=== PATIENT | male | born 1980 | race Caucasian/White ===

== ENCOUNTER 2016-06-28 16:55 | Emergency (ER) | payer SELFPAY ==
[~2016-06-28] VITALS: Ht 177.8 cm; Wt 85.0 kg
[2016-06-28 16:55] VITALS: BP 155/94; PULSE 94; RESP 17; TEMP 97.9; O2SAT 98
[2016-06-28] MEDS ORDERED: SILV1CRE80 TOPICAL (17:19)
[2016-06-28] MEDS ORDERED: HYDR-3533 PO (17:19)
--- NOTE | 2016-06-28 17:26 | PD ---
HPI Chief Complaint: Burn Time Seen by Provider: 17:21 Travel History International Travel<30 days: No Contact w/Intl Traveler<30days: No Traveled to known affect area: No History of Present Illness HPI 36-year-old male that presents to the ED for evaluation of burn to his left forearm. Per patient he was using a sterile and he actually put his arm and there. Per patient he has significant pain from that. Per patient is happened about 45 minutes ago. He denies any allergies to medication. Per patient the pain is 8 out of 10. Gets worse with touch. Denies any other injuries. He does state that he's had third-degree avila in the past in that same arm but never seek treatment for it. Per patient he is up-to-date with his tetanus. Most of the avila are to the lateral aspect of the left forearm. PFSH Past Medical History Musculoskeletal: Yes (chronic neck and back pain) Psychiatric: Yes (PTSD) Social History Alcohol Use: Yes (pt states he "used to drink everyday, now just every so often ".) Tobacco Use: Yes (chewing tobacco) Substance Use: Yes Allergies-Medications (Allergen,Severity, Reaction): Coded Allergies: No Known Allergies (Unverified , 01/27/16) Reported Meds & Prescriptions Reported Meds & Active Scripts Active Lortab (Hydrocodone-Acetaminophen) 5-325 Mg Tab 1 Tab PO Q6H PRN Silver Sulfadiazine Topical (Silver Sulfadiazine) 1 % Cream 1 Applic TOPICAL BID 7 Days Review of Systems Except as stated in HPI: all other systems reviewed are Neg Physical Exam Narrative GENERAL: SKIN: Warm and dry. HEAD: Atraumatic. Normocephalic. EYES: Pupils equal and round. No scleral icterus. No injection or drainage. ENT: No nasal bleeding or discharge. Mucous membranes pink and moist. Tongue is midline. No uvula deviation. NECK: Trachea midline. No JVD. CARDIOVASCULAR: Regular rate and rhythm. No murmurs, S3, S4. RESPIRATORY: No accessory muscle use. Clear to auscultation. Breath sounds equal bilaterally. GASTROINTESTINAL: Abdomen soft, non-tender, nondistended. Hepatic and splenic margins not palpable. MUSCULOSKELETAL: Extremities without clubbing, cyanosis, or edema. No obvious deformities. Full range of motion of the upper and lower extremities bilaterally. Patient does have second and first-degree avila noted to the lateral aspect of the left arm. Patient's avila are about 10 cm. Patient does have 2 areas where he has second-degree avila with blistering that follow the pattern of the stove. Good capillary refill of all fingers. Full range of motion of the arm. NEUROLOGICAL: Awake and alert. No obvious cranial nerve deficits. Motor grossly within normal limits. Five out of 5 muscle strength in the arms and legs. Normal speech. PSYCHIATRIC: Appropriate mood and affect; insight and judgment normal. Data Data Last Documented VS Vital Signs Date Time Temp Pulse Resp B/P Pulse Ox O2 Delivery O2 Flow Rate FiO2 06/28/16 16:55 97.9 94 17 155/94 98 Orders Acetamin-Hydrocod 325-5 Mg ([place] 5-325 (06/28/16 17:30) Silver Sulfadia 1% Crm (50 Gm) ([place] (06/28/16 17:30) Wound Care (06/28/16 17:18) MDM Medical Decision Making Medical Screen Exam Complete: Yes Emergency Medical Condition: Yes Medical Record Reviewed: Yes Differential Diagnosis First degree versus second degree versus third degree burn Narrative Course 36-year-old male that presents to the ED for evaluation of avila to the left forearm. Patient was properly examined and was found to have signs and symptoms consistent appears to be a first and second-degree burn to the left forearm. No sign of acute medical distress. Avila do appear to be somewhat significant. I will prescribe patient a prescription for Lortab and silver sulfadiazine. Here in the ER patient will have wound care with silver sulfadiazine and given Lortab for pain. Patient was instructed to do wound care once or twice a day. Follow with PCP. See ED worsening symptoms. Patient was told to watch for signs of infection if this develops he is to come back to the ED. Diagnosis Primary Impression: First degree burn Additional Impression: Second degree burn of forearm Qualified Code: T22.212A - Second degree burn of forearm, left, initial encounter Patient Instructions: General Instructions, Narcotic given in the ED Additional Instructions: Change dressings at least once a day for at least 2 weeks. Follow up with PCP. See ED worsening symptoms. Do not drink or drive to take the Lortab. See ED for any worsening symptoms. Apply ice as needed. He can take Tylenol or Motrin for pain in addition to the pain medication given. Med/Other Pt SpecificInfo: Prescription(s) given, Wound Care Scripts Hydrocodone-Acetaminophen (Lortab)5-325 Mg Tab1 Tab PO Q6H PRN (PAIN) #20 TAB Prov:Madeline Brown MD 06/28/16 Silver Sulfadiazine Topical 1 % Cream1 Applic TOPICAL BID 7 Days Ref 0 Prov:Madeline Brown MD 06/28/16 Disposition: 01 DISCHARGE HOME Condition: Stable Cristino Davis Jun 28, 2016 17:26
[2016-06-28] MEDS ORDERED: SILVER SULFADIAZINE 1% CR 50 GM JAR TOPICAL ONE (17:30)
[2016-06-28] MEDS ORDERED: ACETAMINOPHEN/HYDROcodone 325 MG/5 MG TAB PO ONE (17:30)
== END 2016-06-28 17:47 | disposition home or self-care (01) ==
LOC: NEPD 16:55
DX: T22.212A Burn of second degree of left forearm, initial encounter (principal); G89.29 Other chronic pain; Z72.0 Tobacco use; X19.XXXA Contact with other heat and hot substances, initial encounter; Y93.G3 Activity, cooking and baking; Y92.9 Unspecified place or not applicable; Y99.8 Other external cause status
CPT/HCPCS: 16020

== ENCOUNTER 2016-07-29 12:24 | Emergency (ER) | payer OTHER ==
[~2016-07-29] VITALS: Ht 177.8 cm; Wt 84.0 kg
[~2016-07-29 12:24] MED LIST: HYDR-3533 PO; SILV1CRE80 TOPICAL
[2016-07-29 12:26] VITALS: BP 137/74; PULSE 66; RESP 18; TEMP 97.3; O2SAT 97
--- NOTE | 2016-07-29 12:31 | PD ---
Physical Exam Time Seen by Provider: 12:29 Narrative 36 y/o male here with L ear pain for 4 days. Denies fevers. +congestion. Denies cough, recent swimming, drainage from the ear. Vital signs reviewed. Seen at triage desk. Awaiting bed placement. Data Data Last Documented VS Vital Signs Date Time Temp Pulse Resp B/P Pulse Ox O2 Delivery O2 Flow Rate FiO2 07/29/16 12:26 97.3 66 18 137/74 97 Room Air [facility] Medical Record Reviewed: Yes Supervised Visit with MICHAEL: Carlos Manuel Man July 29, 2016 12:31
[2016-07-29] MEDS ORDERED: IBUP800T23 PO (12:41)
[2016-07-29] MEDS ORDERED: AUGM875T PO (12:41)
--- NOTE | 2016-07-29 12:42 | PD ---
HPI Chief Complaint: ENT Complaint Time Seen by Provider: 12:39 Travel History International Travel<30 days: No Contact w/Intl Traveler<30days: No Traveled to known affect area: No History of Present Illness HPI 36-year-old male presents to emergency department with left ear pain 4 days. Reports nasal congestion. Denies sore throat, cough. Denies swelling, drainage from the ear. Denies fever. Reports vomiting 2 days ago; denies vomiting times the last 2 days. Has been taking his mom's prescription of amoxicillin since Thursday night with no improvement in symptoms. Has also been taking ibuprofen 800 mg with some relief of pain. [facility] No known allergies. Has no other medical complaints. No other modifying factors or associated signs and symptoms. PFSH Past Medical History Musculoskeletal: Yes (chronic neck and back pain) Psychiatric: Yes (PTSD) Social History Alcohol Use: Yes (pt states he "used to drink everyday, now just every so often ".) Tobacco Use: Yes (chewing tobacco) Substance Use: Yes Allergies-Medications (Allergen,Severity, Reaction): Coded Allergies: No Known Allergies (Unverified , 07/29/16) Reported Meds & Prescriptions Reported Meds & Active Scripts Active Ibuprofen 800 Mg Tab 800 Mg PO Q6HR PRN Augmentin (Amoxicillin-Clavulanate) 875-125 mg Tab 875 Mg PO BID 10 Days not for use in CrCl <30 ml/min. Lortab (Hydrocodone-Acetaminophen) 5-325 Mg Tab 1 Tab PO Q6H PRN Silver Sulfadiazine Topical (Silver Sulfadiazine) 1 % Cream 1 Applic TOPICAL BID 7 Days Review of Systems Except as stated in HPI: all other systems reviewed are Neg Physical Exam Narrative GENERAL: Well-nourished, well-developed male patient, in no acute distress; afebrile, nontoxic-appearing SKIN: Warm and dry. No rash. HEAD: Atraumatic. Normocephalic. EYES: Pupils equal and round. No scleral icterus. No injection or drainage. EARS: Bilateral pinnae and external canals appear within normal limits. Left tympanic membranes with erythema , loss of landmark, and dullness; without perforation. ENT: Mucosa pink and moist. Pharynx with erythema; without edema or exudates. No uvular edema. No uvular, palatal, or tonsillar deviation. Airway patent. NECK: Trachea midline. No lymphadenopathy. CARDIOVASCULAR: Regular rate. RESPIRATORY: No accessory muscle use. GASTROINTESTINAL: Flat. MUSCULOSKELETAL: No obvious deformities. No clubbing. No cyanosis. No edema. NEUROLOGICAL: Awake and alert. Oriented 3. No obvious cranial nerve deficits. Motor grossly within normal limits. Normal speech. Moves all extremities. 5/5 strength to all extremities. PSYCHIATRIC: Appropriate mood and affect; insight and judgment normal. Data Data Last Documented VS Vital Signs Date Time Temp Pulse Resp B/P Pulse Ox O2 Delivery O2 Flow Rate FiO2 07/29/16 12:26 97.3 66 18 137/74 97 Room Air Orders Lidocaine 1% Inj (50 Ml) (Xylocaine 1% I (07/29/16 12:45) Ceftriaxone Inj (Rocephin Inj) (07/29/16 12:45) MDM Medical Decision Making Medical Screen Exam Complete: Yes Emergency Medical Condition: Yes Medical Record Reviewed: Yes Differential Diagnosis Otitis media, otitis externa, foreign body, cerumen impaction Narrative Course 36-year-old male physical exam consistent with left otitis media. He has been taking amoxicillin that was prescribed to his mother for the last 3 days with no improvement in symptoms. Patient is afebrile and nontoxic-appearing. Rocephin will be administered for treatment failure. Augmentin and ibuprofen prescribed for home. Patient verbalizes understanding and agreement with treatment plan. Patient is medically cleared and stable for discharge. Discussed reasons to return to the emergency department. Instructed patient to follow up with primary care provider. Patient agrees with treatment plan. The patients vital signs are stable and the patient is stable for outpatient follow- up and treatment. Patient discharged home, stable and in no acute distress. Diagnosis Primary Impression: Left otitis media Qualified Code: H66.92 - Left otitis media, unspecified chronicity, unspecified otitis media type Referrals: Primary Care Physician Patient Instructions: General Instructions, Otitis Media (ED) Departure Forms: Tests/Procedures, Work Release Enter return to work date: July 30, 2016 Additional Instructions: Take antibiotics as prescribed and complete full course Ibuprofen or Tylenol as directed and as needed to reduce pain and fever Avoid getting water in the ears Do not put anything in the ears; including Q-tips Follow-up with your primary care provider Return to the emergency department immediately with worsening of symptoms Med/Other Pt SpecificInfo: Prescription(s) given Scripts Ibuprofen 800 Mg [id number] Mg PO Q6HR PRN (PAIN) #30 TAB Ref 0 Prov:Samantha Jeong 07/29/16 Amoxicillin-Clavulanate (Augmentin)875-125 mg [id number] Mg PO BID 10 Days Ref 0 not for use in CrCl <30 ml/min. Prov:Samantha Jeong 07/29/16 Disposition: 01 DISCHARGE HOME Condition: Stable Samantha Jeong July 29, 2016 12:42
[2016-07-29] MEDS ORDERED: LIDOCAINE HCL 1% 50 ML VIAL IM ONE (12:45)
== END 2016-07-29 14:18 | disposition home or self-care (01) ==
LOC: NEPK 12:24
DX: H66.92 Otitis media, unspecified, left ear (principal); R09.81 Nasal congestion; Z72.0 Tobacco use; Z87.39 Personal history of other diseases of the musculoskeletal system and connective tissue; Z86.59 Personal history of other mental and behavioral disorders
CPT/HCPCS: 96372; 99283; J0696

== ENCOUNTER 2016-12-08 20:51 | Inpatient (IN) | payer OTHER ==
[~2016-12-08] VITALS: Ht 177.8 cm; Wt 87.5 kg
[~2016-12-08 20:51] MED LIST changes: +AUGM875T PO; +IBUP800T23 PO
[2016-12-08 20:55] VITALS: BP 121/79; PULSE 73; RESP 16; TEMP 97.8; O2SAT 98
[2016-12-08 20:59] VITALS: RESP 22; O2SAT 96
[2016-12-08] MEDS ORDERED: ceFAZolin 2 GM PREMIX 50 ML ONE (21:03)
[2016-12-08] MEDS ORDERED: SODIUM CHLOR 0.9% 1000 ML INJ 1,000 ML IV SCH (21:04)
[2016-12-08] MEDS ORDERED: DIPHTH/TETANUS/ACEL PERTUSSIS (BOOSTER) 0.5 ML VIAL/PFS IM ONE (21:15)
[2016-12-08] MEDS ORDERED: ceFAZolin 2 GM PREMIX 50 ML IV ONE (21:15)
[2016-12-08] MEDS ORDERED: MORPHINE SULFATE 4 MG/ML INJ IV ONE (21:15)
[2016-12-08] MEDS ORDERED: SODIUM CHLORIDE 0.9% FLUSH 10 ML FLUSH IVF PRN (21:15)
[2016-12-08] MEDS ORDERED: ONDANSETRON HCL 4 MG/2 ML VIAL IVP ONE (21:15)
--- NOTE | 2016-12-08 21:16 | PD ---
HPI Chief Complaint: Fall Time Seen by Provider: 21:03 Travel History International Travel<30 days: No Contact w/Intl Traveler<30days: No Traveled to known affect area: No History of Present Illness HPI The patient is a 36 year old male who presents to the [facility] emergency department with a history of reportedly helping a friend work on a roof prior to arrival. The patient reports that he slipped and fell off the roof. He estimates that he was 20-30 feet up when he fell. He tried to avoid hitting his head and mainly landed on his left side. He denies having any loss of consciousness. The patient has a laceration noted to be through and through lower lip. He denies having any neck pain, paresthesias, or weakness to his extremities. He reports that he has severe left wrist pain, right knee pain, left sided low back pain and left hip pain. The patient came in by private vehicle. The patient is unsure when his tetanus was last updated. The patient on review of systems denies having any chest pain, chest pressure, shortness of breath. He denies having any abdominal pain, vomiting, or diarrhea. [facility] Past Medical History Narrative Medical The patient's past medical history is significant for chronic low back pain previously monitored by pain management, however he reports that he has not recently been on Lortab. He is followed through the [facility] for his primary care. Diminished Hearing: No Musculoskeletal: Yes (chronic neck and back pain) Psychiatric: Yes (PTSD) Past Surgical History Narrative Surgical The patient's past surgical history is significant for knee arthroscopy. Social History Alcohol Use: Yes (OCC.) Tobacco Use: Yes (chewing tobacco) Substance Use: Yes (PT STATES HE QUIT ONE YEAR AGO) Allergies-Medications (Allergen,Severity, Reaction): Coded Allergies: No Known Allergies (Unverified , 12/08/16) Reported Meds & Prescriptions Reported Meds & Active Scripts Active No Active Prescriptions or Reported Medications Review of Systems Except as stated in HPI: all other systems reviewed are Neg General / Constitutional: No: Fever Eyes: No: Visual changes HENT: Positive: Dental Difficulties, Other (right-sided jaw pain), No: Headaches, Neck Stiffness, Neck Pain Cardiovascular: Positive: Chest Pain or Discomfort (chest wall pain) Respiratory: No: Shortness of Breath Gastrointestinal: No: Nausea, Vomiting, Diarrhea, Abdominal Pain Genitourinary: No: Dysuria Musculoskeletal: Positive: Arthralgias, Limited ROM, Pain Skin: Positive Other (laceration to the chin.), No Rash Neurologic: No: Weakness, Focal Abnormalities, Change in Mentation, Slurred Speech, Sensory Disturbance Psychiatric: No: Depression Endocrine: No: Polydipsia Hematologic/Lymphatic: No: Easy Bruising Physical Exam Narrative General: The patient is a well-developed well-nourished male, uncomfortable appearing on arrival reporting severe left wrist, left low back, and right knee pain. The patient was placed in a cervical collar. Head and Neck exam: Head is normocephalic atraumatic. No facial bone tenderness or increased facial bone mobility noted on palpation. Eyes: EOMI, pupils are equal round and reactive to light. Nose: Midline septum with pink mucous membranes Mouth: The patient reports that his upper teeth feel loose. On palpation the patient is noted to have some loosening of the left lateral incisor. Otherwise his teeth are intact. Moist mucus membranes. Posterior oropharynx is not erythematous. No tonsillar hypertrophy. Uvula midline. Airway patent. The patient is noted to have a through and through laceration through the lower lip that is approximately 4 cm. The patient has right sided mandible pain. Neck: The patient is immobilized in a cervical collar. No tracheal deviation. The trachea appears midline. Cardiovascular: Regular rate and rhythm without murmurs, gallops, or rubs. No pulse deficit to the extremities. Lungs: Clear to auscultation bilaterally. No wheezes, rhonchi, or rales. No chest wall tenderness to palpation. No erythema or ecchymosis noted. No crepitus , step off, or flail segment noted. Abdomen: Soft, without tenderness to palpation in all 4 quadrants of the abdomen. No guarding, rebound, or rigidity. No tenderness on palpation of McBurney's point. Normal bowel sounds are audible. Extremities: No clubbing, cyanosis, or edema. 2+ pulses in all 4 extremities. No extremity tenderness or deformity noted on palpation or passive/ active range of motion, except in the area of interest, the left wrist the patient is noted to have deformity of the distal wrist. The patient continues to have 2+ radial pulse, less than 3 second capillary refill of his digits, intact sensation over all digits. The patient on examination of the right knee the other area of interest the patient reports having heel joint line tenderness on palpation. There is no step-off or crepitus. There is some erythema noted. There appears to be bruising developing. There is no effusion. No tenderness on palpation of his patella. No ligament laxity. There is no shortening of his lower extremities, however the patient has pain with internal and neck rotation of the left hip. The patient has intact sensation over all toes and full range of motion of his legs. Back: No spinous process tenderness to palpation. No costovertebral angle tenderness to palpation. No erythema or ecchymosis. The patient reports tenderness on palpation along the lower aspect of the left SI joint. There is no crepitus on palpation. Neurologic Exam: Cranial nerves 2-12 were intact on exam. Strength is 5/5 in all 4 extremities. No sensory deficits noted. Skin Exam: No rash noted. Data Data Last Documented VS Vital Signs Date Time Temp Pulse Resp B/P (MAP) Pulse Ox O2 Delivery O2 Flow Rate FiO2 12/08/16 20:59 96 Nasal Cannula 2.00 12/08/16 20:59 22 12/08/16 20:55 97.8 73 121/79 (93) Orders Orders Cefazolin 2 Gm Premix (Ancef 2 Gm Premix (12/08/16 21:03) I-Stat Profile (12/08/16 21:04) I-Stat Creatinine (12/08/16 21:04) Complete Blood Count With Diff (12/08/16 21:04) Prothrombin Time / Inr (Pt) (12/08/16 21:04) Act Partial Throm Time (Ptt) (12/08/16 21:04) Type And Screen (12/08/16 21:04) Fibrinogen (12/08/16 21:04) Alcohol (Ethanol) (12/08/16 21:04) Red Blood Cells (Rbc) (12/08/16 21:04) Urinalysis - C+S If Indicated (12/08/16 21:04) Drug Screen, Random Urine (12/08/16 21:04) Chest, Single Ap (12/08/16 21:04) Ct Brain W/O Iv Contrast(Rout) (12/08/16 21:04) Ct Cerv Spine W/O Contrast (12/08/16 21:04) Ct Abd/Pel W Iv Contrast(Rout) (12/08/16 21:04) Ct Thorax/ Chest W Iv Contrast (12/08/16 21:04) Ct Lumb Spine W/O Contrast (12/08/16 21:04) Ct Facial Bones W/O Iv Cont (12/08/16 21:04) Apply Cervical Collar (12/08/16 21:04) Iv Access Insert/Monitor (12/08/16 21:04) Ecg Monitoring (12/08/16 21:04) Oximetry (12/08/16 21:04) Oxygen Administration (12/08/16 21:04) Cefazolin 2 Gm Premix (Ancef 2 Gm Premix (12/08/16 21:15) Morphine Inj (Morphine Inj) (12/08/16 21:15) Ondansetron Inj (Zofran Inj) (12/08/16 21:15) Xuxb-Mus-Rumzgn (Booster) Inj (Boostrix (12/08/16 21:15) Sodium Chlor 0.9% 1000 Ml Inj (Ns 1000 M (12/08/16 21:04) Sodium Chloride 0.9% Flush (Ns Flush) (12/08/16 21:15) Hip, Uni(Ap&Lat) W Ap Pelvis (12/08/16 21:04) Ice/Cold Pack (12/08/16 21:04) Knee, Complete (4vws) (12/08/16 21:04) Lidocaine 1% Inj (50 Ml) (Xylocaine 1% I (12/08/16 22:00) Hand, Limited (2vws) (12/08/16 21:04) Wrist, Limited (Ap&Lat) (12/08/16 21:04) Splint Or Brace Apply/Monitor (12/08/16 23:36) Consult Orthopedic (12/08/16 ) Admit Order (Ed Use Only) (12/08/16 23:48) Ct Thor Spine W/O Contrast (12/08/16 21:04) Labs Laboratory Tests Test 12/08/16 21:00 White Blood Count 12.5 TH/MM3 Red Blood Count 4.28 MIL/MM3 Hemoglobin 13.2 GM/DL Bedside Hemoglobin 13.3 G/DL Hematocrit 38.2 % Bedside Hematocrit 39.0 % Mean Corpuscular Volume 89.2 FL Mean Corpuscular Hemoglobin 30.9 PG Mean Corpuscular Hemoglobin Concent 34.6 % Red Cell Distribution Width 12.9 % Platelet Count 162 TH/MM3 Mean Platelet Volume 9.7 FL Neutrophils (%) (Auto) 66.5 % Lymphocytes (%) (Auto) 29.3 % Monocytes (%) (Auto) 3.3 % Eosinophils (%) (Auto) 0.4 % Basophils (%) (Auto) 0.5 % Neutrophils # (Auto) 8.3 TH/MM3 Lymphocytes # (Auto) 3.7 TH/MM3 Monocytes # (Auto) 0.4 TH/MM3 Eosinophils # (Auto) 0.0 TH/MM3 Basophils # (Auto) 0.1 TH/MM3 CBC Comment DIFF FINAL Differential Comment Prothrombin Time 11.2 SEC Prothromb Time International Ratio 1.0 RATIO Activated Partial Thromboplast Time 22.1 SEC Fibrinogen 120 mg/dL Bedside Sodium 142 MMOL/L Bedside Potassium 3.6 MMOL/L Bedside Chloride 104 MMOL/L Bedside Blood Urea Nitrogen 11 MG/DL Bedside Creatinine 1.1 MG/DL Bedside Glucose 135 MG/DL Ethyl Alcohol Level LESS THAN 3 MG/DL MDM Medical Decision Making Medical Screen Exam Complete: Yes Emergency Medical Condition: Yes Medical Record Reviewed: Yes Interpretation(s) Last Impressions Wrist X-Ray 12/08/162103 Signed Impressions: Service Date/Time: Thursday, December 08, 2016 22:55 - CONCLUSION: 1. Comminuted intra-articular fracture distal radius and left ulna styloid fracture with mild displacement. No dislocation. Nestor Pierce MD Thoracic Spine CT 12/08/162103 Signed Impressions: Service Date/Time: Thursday, December 08, 2016 23:24 - CONCLUSION: 1. No acute thoracic spine fracture. Incidental fracture of medial right first rib and probably medial right ninth rib. Exam degraded by some motion artifact. Nestor Pierce MD Maxillofacial CT 12/08/162103 Signed Impressions: Service Date/Time: Thursday, December 08, 2016 23:16 - CONCLUSION: 1. Displaced fracture through the right mandibular head and neck. 2. Nondisplaced fractures of the left maxillary sinus and anterior process of the maxilla. Nestor Pierce MD Lumbar Spine CT 12/08/162103 Signed Impressions: Service Date/Time: Thursday, December 08, 2016 23:24 - CONCLUSION: 1. No acute lumbar spine fracture. Left sacral ala fracture with mild displacement. Nestor Pierce MD Knee X-Ray 12/08/162103 Signed Impressions: Service Date/Time: Thursday, December 08, 2016 22:49 - CONCLUSION: No acute disease. Nestor Pierce MD Hip and Pelvis X-Ray 12/08/162103 Signed Impressions: Service Date/Time: Thursday, December 08, 2016 22:49 - CONCLUSION: 1. Fracture left superior pubic ramus and left pubic bone, relatively nondisplaced. Left hip appears intact. CT pending. Nestor Pierce MD Head CT 12/08/162103 Signed Impressions: Service Date/Time: Thursday, December 08, 2016 23:12 - CONCLUSION: 1. No acute intracranial abnormalities. Fracture of the right mandibular head and neck and left maxillary sinus. Nestor Pierce MD Hand X-Ray 12/08/162103 Signed Impressions: Service Date/Time: Thursday, December 08, 2016 22:56 - CONCLUSION: 1. Fracture of the left wrist. No left hand fracture identified. Nestor Pierce MD Chest X-Ray 12/08/162103 Signed Impressions: Service Date/Time: Thursday, December 08, 2016 22:53 - CONCLUSION: Normal examination. Nestor Pierce MD Chest CT 12/08/162103 Signed Impressions: Service Date/Time: Thursday, December 08, 2016 23:24 - CONCLUSION: 1. Nondisplaced fractures right first rib and ninth rib medially. No pneumothorax or effusion. Small right lung contusion. Nestor Pierce MD Cervical Spine CT 12/08/162103 Signed Impressions: Service Date/Time: Thursday, December 08, 2016 23:15 - CONCLUSION: 1. No acute cervical spine fracture. Nondisplaced right first rib fracture. Nestor Pierce MD Abdomen/Pelvis CT 12/08/162103 Signed Impressions: Service Date/Time: Thursday, December 08, 2016 23:24 - CONCLUSION: 1. There are nondisplaced fractures of the left pubic bone, superior and inferior pubic rami , anterior column left acetabulum and left sacral ala. Small left pelvic sidewall and presacral hematoma. 2. No solid visceral injury identified. Nestor Pierce MD Differential Diagnosis Intracranial trauma, versus cervical spine trauma, versus intrathoracic trauma, versus intra-abdominal trauma, versus T-spine trauma, versus L-spine trauma, versus left hip fracture, versus left hip dislocation, versus left wrist fracture, versus left hand fracture, versus left wrist contusion. Narrative Course During the course of the patients emergency department visit, the patients history, examination, and differential diagnosis were reviewed with the patient. The patient had 2 large-bore IVs placed in the right upper extremity. An i-STAT with creatinine was ordered. CBC was ordered. The patient will be typed and screened. A CT scan of the head, neck, facial bones, thorax, abdomen and pelvis, T-spine, and L-spine have been ordered. A left hip and pelvis x- ray was ordered. A chest x-ray was ordered. A left wrist x-ray was ordered. The patient was initially provided morphine 4 g IV for pain, Zofran 4 mg IV for nausea, normal saline 1 L IV fluid bolus. The patients laboratory studies were reviewed and remarkable for a white count of 12.5, hemoglobin 13.2, platelets 162 with a normal differential, i-STAT revealed a glucose of 135, creatinine 1.1, otherwise unremarkable. PT 11.2, PTT 22.1, fibrinogen 120, alcohol level less than 3. Radiology studies were reviewed and remarkable for a chest x-ray that shows no acute abnormality, wrist x-ray reveals a comminuted intra-articular fracture, distal radius and left ulnar styloid fracture with mild displacement, no dislocation. Left hand x-ray showed no acute abnormality. Left hip and pelvis x-ray reveals a fracture of the left superior pubic ramus and left pubic bone that is relatively nondisplaced. The patient consented to a closed reduction and splinting of his left wrist. The patient was provided procedural sedation and the fracture fragments were realigned. The patient was placed in a sugar tong splint. A call was placed out to the orthopedic physician. I spoke to Dr. Davis regarding this patient' s case. He will be speaking to Dr. Kilpatrick regarding this patient's findings in the morning. He requested that the patient be made nothing by mouth. A post reduction x-ray of the left wrist reveals casting of the left wrist with slight improvement in the fracture alignment. Sweta, the nurse practitioner was consulted regarding wound repair and irrigation of the patient's facial laceration. CT scan of the brain shows no acute intracranial abnormality, fracture of the right mandible head and neck and left maxillary sinus are noted. CT scan of the C-spine shows no acute cervical spine fracture, nondisplaced right first rib fracture CT scan of the thorax reveals nondisplaced fractures of the first rib on the right and ninth rib on the right, no pneumothorax or effusion, small right lung contusion. CT scan of the abdomen and pelvis shows that there are nondisplaced fractures of the left pubic bone, superior and inferior pubic ramus, anterior column of the left acetabulum and left sacral ala. Small left pelvic sidewall and presacral hematoma. No solid visceral injury. Maxillofacial CT reveals a displaced fracture through the right mandible head and neck, nondisplaced fractures of the left maxillary sinus and anterior process of the maxilla. A call was placed out to the maxillofacial surgeon reclamation kettle tender, Dr. Keyes. He spoke to him regarding this patient's case. He requested that the patient be made nothing by mouth and he will see him in the morning. Right knee x-ray shows no acute abnormality. T-spine x-ray shows no acute thoracic spine fractures. CT scan of the lumbar spine shows no acute lumbar spine fractures, left sacral ala fracture with mild displacement. The patient's case was discussed with Dr. Osorio, the trauma surgeon, who did agree to admit the patient for further evaluation and treatment at this time. The patients results were discussed with the patient, including the plan of care. I explained that further testing and/ or monitoring is indicated based on the patients history, examination, and/ or laboratory findings. Therefore, I recommended admission for additional evaluation. The patient expressed understanding and was agreeable with this plan. The patient was admitted to the hospital in guarded condition and sent to a bed under the care of the trauma service. Critical Care Narrative Aggregate critical care time was 40 minutes. Time to perform other separately billable procedures was not included in the critical care time. My time did not include minutes spent treating any other patients simultaneously or on activities that did not directly contribute to the patient's treatment. The services I provided to this patient were to treat and/or prevent clinically significant deterioration that could result in: Hemorrhagic shock, versus hypoxic brain injury I provided critical care services requiring my management, as noted below: Chart data review, documentation time, medication orders and management, vital sign assessments/reviewing monitor data, ordering and reviewing lab tests, ordering and interpreting/reviewing x-rays and diagnostic studies, care of the patient and discussion of the patient with the admitting physicians. Procedures Procedure Narrative Close reduction of a displaced distal radius fracture. Gentle traction was applied while bony fragments were manipulated into better position then a sugar tong splint was applied. After the risks and benefits were discussed the following procedure was performed: MODERATE SEDATION: The patient was placed on a forming machine upkeep mechanic helper and pulse oximetry. An ambu bag and suction was immediately available at bedside. The patient was monitored by the nurse. Oxygen saturation , heart rate and blood pressure were monitored. Procedural sedation was acheived using 50 mg of propofol. The patient was observed until awake and alert. Procedural Sedation time in attendance was 15 minutes. Physician Communication Physician Communication The patient's case was discussed with the orthopedic physician, Dr. Davis. The patient's case was discussed with the maxillofacial surgeon, Dr. Keyes at 12:38 AM. The patient's case was discussed with the trauma surgeon, Dr. Osorio. Please see further information under the ED course regarding physician communication. Diagnosis Primary Impression: Fall from roof Qualified Codes: W13.2XXA - Fall from, out of or through roof, initial encounter Additional Impressions: Closed left acetabular fracture Qualified Codes: S32.402A - Unspecified fracture of left acetabulum, initial encounter for closed fracture Closed sacral fracture Qualified Codes: S32.10XA - Unspecified fracture of sacrum, initial encounter for closed fracture Pubic ramus fracture Qualified Codes: S32.592A - Other specified fracture of left pubis, initial encounter for closed fracture Left wrist fracture Qualified Codes: S62.102A - Fracture of unspecified carpal bone, left wrist, initial encounter for closed fracture Fracture of right side of mandible Qualified Codes: S02.609A - Fracture of mandible, unspecified, initial encounter for closed fracture Facial laceration Qualified Codes: S01.81XA - Laceration without foreign body of other part of head, initial encounter Admitting Information Admitting Physician Requests: Admit Scripts No Active Prescriptions or Reported Meds Meena Davis MD Dec 08, 2016 21:15
[2016-12-08 21:31] LABS: AUTOMATED NEUTROPHIL # 8.3 TH/MM3 (1.8-7.7); BASOPHIL # 0.1 TH/MM3 (0-0.2); BASOPHIL % 0.5 % (0.0-2.0); EOSINOPHIL % 0.4 % (0.0-4.0); HEMATOCRIT 38.2 % (39.0-51.0); HEMO FLAGS DIFF FINAL; LYMPH % 29.3 % (9.0-44.0); LYMPHOCYTE # 3.7 TH/MM3 (1.0-4.8); MEAN CELL VOLUME 89.2 FL (80.0-100.0); MEAN CORPUSCULAR HEMOGLOBIN 30.9 PG (27.0-34.0); MEAN CORPUSCULAR HGB CONC 34.6 % (32.0-36.0); MONO % 3.3 % (0.0-8.0); NEUT % 66.5 % (16.0-70.0); PLATELET COUNT 162 TH/MM3 (150-450); RED BLOOD COUNT 4.28 MIL/MM3 (4.50-5.90); RED CELL DISTRIBUTION WIDTH 12.9 % (11.6-17.2); WHITE BLOOD COUNT 12.5 TH/MM3 (4.0-11.0)
[2016-12-08 21:32] LABS: I-STAT POTASSIUM 3.6 MMOL/L (3.5-4.9); I-STAT SODIUM 142 MMOL/L (138-146)
[2016-12-08 21:45] LABS: PROTHROMBIN TIME - PATIENT 11.2 SEC (9.8-11.6)
[2016-12-08 21:57] LABS: APTT (PATIENT) 22.1 SEC (24.3-30.1)
[2016-12-08] MEDS ORDERED: LIDOCAINE HCL 1% 50 ML VIAL INFIL ONE (22:00)
[2016-12-08 22:16] LABS: ALCOHOL LESS THAN 3 MG/DL (0-5)
--- NOTE | 2016-12-08 22:41 | PD ---
Physical Exam Date Seen by Provider: Dec 08, 2016 Time Seen by Provider: 22:40 Narrative I was asked by Dr. Davis to repair lacerations to the patient's face. Please see her documentation for full history and physical. Data Data Last Documented VS Vital Signs Date Time Temp Pulse Resp B/P (MAP) Pulse Ox O2 Delivery O2 Flow Rate FiO2 12/08/16 20:59 96 Nasal Cannula 2.00 12/08/16 20:59 22 12/08/16 20:55 97.8 73 121/79 (93) Orders Orders Cefazolin 2 Gm Premix (Ancef 2 Gm Premix (12/08/16 21:03) I-Stat Profile (12/08/16 21:04) I-Stat Creatinine (12/08/16 21:04) Complete Blood Count With Diff (12/08/16 21:04) Prothrombin Time / Inr (Pt) (12/08/16 21:04) Act Partial Throm Time (Ptt) (12/08/16 21:04) Type And Screen (12/08/16 21:04) Fibrinogen (12/08/16 21:04) Alcohol (Ethanol) (12/08/16 21:04) Red Blood Cells (Rbc) (12/08/16 21:04) Urinalysis - C+S If Indicated (12/08/16 21:04) Drug Screen, Random Urine (12/08/16 21:04) Chest, Single Ap (12/08/16 21:04) Ct Brain W/O Iv Contrast(Rout) (12/08/16 21:04) Ct Cerv Spine W/O Contrast (12/08/16 21:04) Ct Abd/Pel W Iv Contrast(Rout) (12/08/16 21:04) Ct Thorax/ Chest W Iv Contrast (12/08/16 21:04) Ct Thor Spine W/O Contrast (12/08/16 21:04) Ct Lumb Spine W/O Contrast (12/08/16 21:04) Ct Facial Bones W/O Iv Cont (12/08/16 21:04) Apply Cervical Collar (12/08/16 21:04) Iv Access Insert/Monitor (12/08/16 21:04) Ecg Monitoring (12/08/16 21:04) Oximetry (12/08/16 21:04) Oxygen Administration (9/25/17 21:04) Cefazolin 2 Gm Premix (Ancef 2 Gm Premix (12/08/16 21:15) Morphine Inj (Morphine Inj) (12/08/16 21:15) Ondansetron Inj (Zofran Inj) (12/08/16 21:15) Lxzw-Oyh-Jelmok (Booster) Inj (Boostrix (12/08/16 21:15) Sodium Chlor 0.9% 1000 Ml Inj (Ns 1000 M (12/08/16 21:04) Sodium Chloride 0.9% Flush (Ns Flush) (12/08/16 21:15) Hand, Complete (Opp1ono) (12/08/16 21:04) Hip, Uni(Ap&Lat) W Ap Pelvis (12/08/16 21:04) Wrist, Complete ([id number]) (12/08/16 21:04) Ice/Cold Pack (12/08/16 21:04) Knee, Complete (4vws) (12/08/16 21:04) Lidocaine 1% Inj (50 Ml) (Xylocaine 1% I (12/08/16 22:00) Labs Laboratory Tests Test 12/08/16 21:00 White Blood Count 12.5 TH/MM3 Red Blood Count 4.28 MIL/MM3 Hemoglobin 13.2 GM/DL Bedside Hemoglobin 13.3 G/DL Hematocrit 38.2 % Bedside Hematocrit 39.0 % Mean Corpuscular Volume 89.2 FL Mean Corpuscular Hemoglobin 30.9 PG Mean Corpuscular Hemoglobin Concent 34.6 % Red Cell Distribution Width 12.9 % Platelet Count 162 TH/MM3 Mean Platelet Volume 9.7 FL Neutrophils (%) (Auto) 66.5 % Lymphocytes (%) (Auto) 29.3 % Monocytes (%) (Auto) 3.3 % Eosinophils (%) (Auto) 0.4 % Basophils (%) (Auto) 0.5 % Neutrophils # (Auto) 8.3 TH/MM3 Lymphocytes # (Auto) 3.7 TH/MM3 Monocytes # (Auto) 0.4 TH/MM3 Eosinophils # (Auto) 0.0 TH/MM3 Basophils # (Auto) 0.1 TH/MM3 CBC Comment DIFF FINAL Differential Comment Prothrombin Time 11.2 SEC Prothromb Time International Ratio 1.0 RATIO Activated Partial Thromboplast Time 22.1 SEC Fibrinogen 120 mg/dL Bedside Sodium 142 MMOL/L Bedside Potassium 3.6 MMOL/L Bedside Chloride 104 MMOL/L Bedside Blood Urea Nitrogen 11 MG/DL Bedside Creatinine 1.1 MG/DL Bedside Glucose 135 MG/DL Ethyl Alcohol Level LESS THAN 3 MG/DL [facility] Supervised Visit with MICHAEL: No Procedures Procedure Narrative LACERATION LOCATION: Chin LENGTH: 3 cm NUMBER OF STITCHES/DILCIA: 7 simple interrupted sutures REPAIR: The area of the laceration was prepped with Betadine and sterilely draped. The laceration was infiltrated with 1% lidocaine. The wound was copiously irrigated and explored without evidence of foreign body, tendon injury or neurovascular injury. The wound was closed using 5-0 Prolene. This was a single layer repair. A sterile dressing was applied. The patient was advised to keep the dressing clean and dry. Patient tolerated the procedure well. LACERATION LOCATION: Through and through lower lip LENGTH: 4 cm NUMBER OF STITCHES/DILCIA: (8) 5-0 Vicryl simple interrupted sutures, (8) 5-0 Prolene simple interrupted sutures REPAIR: The area of the laceration was prepped with Betadine and sterilely draped. The laceration was infiltrated with 1% lidocaine. The wound was copiously irrigated and explored without evidence of foreign body, tendon injury or neurovascular injury. The wound was closed using 5-0 Vicryl and 5-0 Prolene. This was a 2 layer repair. A sterile dressing was applied. The patient was advised to keep the dressing clean and dry. Patient tolerated the procedure well. Diagnosis Primary Impression: Fall from roof Scripts No Active Prescriptions or Reported Sweta Bui Dec 08, 2016 22:41
--- NOTE | 2016-12-08 23:21 | RADRPT ---
EXAM DATE/TIME: 12/08/2016 22:49 [facility] COMPARISON: No previous studies available for comparison. INDICATIONS : Right knee pain after fall off of ladder. MEDICAL HISTORY : None. SURGICAL HISTORY : None. ENCOUNTER: Initial ACUITY: 1 day PAIN SCORE: 8/10 LOCATION: Right knee FINDINGS: Four view examination of the right knee demonstrates no evidence of fracture or dislocation. Bony mi neralization is normal. The articular surfaces are intact. The suprapatellar soft tissues have a no rmal configuration. CONCLUSION: No acute disease. Nestor Pierce MD on December 08, 2016 at 23:17 Board Certified Radiologist. This report was verified electronically.
--- NOTE | 2016-12-08 23:22 | RADRPT ---
EXAM DATE/TIME: 12/08/2016 22:55 [facility] COMPARISON: No previous studies available for comparison. INDICATIONS : Left wrist pain after fall off of ladder. MEDICAL HISTORY : None. SURGICAL HISTORY : None. ENCOUNTER: Initial ACUITY: 1 day PAIN SCORE: 10/10 LOCATION: Left wrist. FINDINGS: Two view examination of the left wrist demonstrates a comminuted intra-articular fracture of the dist al radius with mild displacement. Also ulnar styloid fracture. Mild posterior displacement of the fra cture fragments. No dislocation at the wrist. No carpal fracture is identified. CONCLUSION: 1. Comminuted intra-articular fracture distal radius and left ulna styloid fracture with mild displac ement. No dislocation. Nestor Pierce MD on December 08, 2016 at 23:19 Board Certified Radiologist. This report was verified electronically.
--- NOTE | 2016-12-08 23:24 | RADRPT ---
EXAM DATE/TIME: 12/08/2016 22:56 [facility] COMPARISON: No previous studies available for comparison. INDICATIONS : Left hand pain after fall off of ladder. MEDICAL HISTORY : None. SURGICAL HISTORY : None. ENCOUNTER: Initial ACUITY: 1 day PAIN SCORE: 10/10 LOCATION: Left hand. FINDINGS: Two view examination of the left hand demonstrates a comminuted intra-articular fracture of the dista l radius plus ulnar styloid fracture. No other fractures identified in the left hand. CONCLUSION: 1. Fracture of the left wrist. No left hand fracture identified. Nestor Pierce MD on December 08, 2016 at 23:20 Board Certified Radiologist. This report was verified electronically.
--- NOTE | 2016-12-08 23:32 | RADRPT ---
EXAM DATE/TIME: 12/08/2016 22:53 [facility] COMPARISON: No previous studies available for comparison. INDICATIONS : Short of breath post fall. MEDICAL HISTORY : None. SURGICAL HISTORY : None. ENCOUNTER: Initial ACUITY: 1 day PAIN SCORE: 8/10 LOCATION: Bilateral chest FINDINGS: A single view of the chest demonstrates the lungs to be symmetrically aerated without evidence of mas s, infiltrate or effusion. The cardiomediastinal contours are unremarkable. Osseous structures are intact. CONCLUSION: Normal examination. Nestor Pierce MD on December 08, 2016 at 23:29 Board Certified Radiologist. This report was verified electronically.
--- NOTE | 2016-12-08 23:36 | RADRPT ---
EXAM DATE/TIME: 12/08/2016 22:49 [facility] COMPARISON: No previous studies available for comparison. INDICATIONS : Left hip pain post fall. MEDICAL HISTORY : None. SURGICAL HISTORY : None. ENCOUNTER: Initial ACUITY: 1 day PAIN SCORE: 8/10 LOCATION: Left hip. FINDINGS: There is a nondisplaced fracture through the junction of the left superior pubic ramus with the left acetabulum. Also questionable left pubic bone fracture. No other fractures identified. CONCLUSION: 1. Fracture left superior pubic ramus and left pubic bone, relatively nondisplaced. Left hip appears intact. CT pending. Nestor Pierce MD on December 08, 2016 at 23:32 Board Certified Radiologist. This report was verified electronically.
[2016-12-09] MEDS ORDERED: IOHEXOL 350 MG/ML 10 ML VIAL (for RAD DIAG) IVCONTRAST ONE (00:04)
--- NOTE | 2016-12-09 00:09 | RADRPT ---
EXAM DATE/TIME: 12/08/2016 23:12 [facility] COMPARISON: No previous studies available for comparison. INDICATIONS : Trauma; fell off of roof. RADIATION DOSE: 56.35 CTDIvol (mGy) MEDICAL HISTORY : None SURGICAL HISTORY : None. ENCOUNTER: Initial ACUITY: 1 day PAIN SCALE: 4/10 LOCATION: Left cranial TECHNIQUE: Multiple contiguous axial images were obtained of the head. Using automated exposure control and adj ustment of the mA and/or kV according to patient size, radiation dose was kept as low as reasonably a chievable to obtain optimal diagnostic quality images. DICOM format image data is available electro nically for review and comparison. FINDINGS: There is no acute intracranial hemorrhage, mass or shift. No hydrocephalus. There is a fracture of the right mandibular head and neck in the left maxillary sinus with a small he morrhage in left maxillary sinus. See facial bone CT report. CONCLUSION: 1. No acute intracranial abnormalities. Fracture of the right mandibular head and neck and left maxil savannah sinus. Nestor Pierce MD on December 09, 2016 at 0:05 Board Certified Radiologist. This report was verified electronically.
--- NOTE | 2016-12-09 00:12 | RADRPT ---
EXAM DATE/TIME: 12/08/2016 23:15 [facility] COMPARISON: No previous studies available for comparison. INDICATIONS : Trauma; fell off of roof, neck pain. RADIATION DOSE: 29.01 CTDIvol (mGy) MEDICAL HISTORY : None SURGICAL HISTORY : None. ENCOUNTER: Initial ACUITY: 1 day PAIN SCALE: 4/10 LOCATION: neck TECHNIQUE: Volumetric scanning of the cervical spine was performed. Multiplanar reconstructions in the sagittal, coronal and oblique axial planes were performed. Using automated exposure control and adjustment o f the mA and/or kV according to patient size, radiation dose was kept as low as reasonably achievable to obtain optimal diagnostic quality images. DICOM format image data is available electronically f or review and comparison. FINDINGS: No acute fracture or spondylolisthesis in the cervical spine. Moderate degenerative disc disease in t he cervical spine. There is some prevertebral soft tissue swelling. Nondisplaced right first rib frac ture noted incidentally. CONCLUSION: 1. No acute cervical spine fracture. Nondisplaced right first rib fracture. Nestor Pierce MD on December 09, 2016 at 0:07 Board Certified Radiologist. This report was verified electronically.
[2016-12-09] MEDS ORDERED: ONDANSETRON HCL 4 MG/2 ML VIAL IV ONE (00:15)
[2016-12-09] MEDS ORDERED: PROPOFOL 200 MG/20 ML AMP IV ONE ×2 (00:15→12:00)
[2016-12-09] MEDS ORDERED: SODIUM CHLORID 0.9% 500 ML INJ 500 ML IV ONE (00:15)
[2016-12-09] MEDS ORDERED: ONDANSETRON HCL 4 MG/2 ML VIAL IV PUSH PRN (00:15)
--- NOTE | 2016-12-09 00:18 | RADRPT ---
EXAM DATE/TIME: 12/08/2016 23:16 [facility] COMPARISON: No previous studies available for comparison. INDICATIONS : Trauma, fell off of roof, lower lip laceration. RADIATION DOSE: 26.35 CTDIvol (mGy) MEDICAL HISTORY : None SURGICAL HISTORY : None. ENCOUNTER: Initial ACUITY: 1 day PAIN SCORE: 6/10 LOCATION: Bilateral facial TECHNIQUE: Volumetric scanning of the facial bones was performed. Using automated exposure control and adjustme nt of the mA and/or kV according to patient size, radiation dose was kept as low as reasonably achiev able to obtain optimal diagnostic quality images. DICOM format image data is available [employer] [employer] y for review and comparison. FINDINGS: [place] is an obliquely R. and had displaced fracture through the right mandibular head and neck extendi ng into the right temporomandibular joint. There is a relatively nondisplaced fracture through the anterior process of the maxilla and a nondisp laced left maxillary sinus fracture with a small amount of hemorrhage present in the sinus. Globes ar e intact. No orbital floor fracture identified. CONCLUSION: 1. Displaced fracture through the right mandibular head and neck. 2. Nondisplaced fractures of the left maxillary sinus and anterior process of the maxilla. Nestor Pierce MD on December 09, 2016 at 0:10 Board Certified Radiologist. This report was verified electronically.
[2016-12-09 00:20] VITALS: O2SAT 98
--- NOTE | 2016-12-09 00:26 | RADRPT ---
EXAM DATE/TIME: 12/08/2016 23:24 [facility] COMPARISON: No previous studies available for comparison. INDICATIONS : Trauma; fell off of roof. IV CONTRAST: 96 cc Omnipaque 350 (iohexol) IV ; Cumulative dose for multiple exams. RADIATION DOSE: 9.96 CTDIvol (mGy) ; Combined studies - Thorax/Abdomen/Pelvis MEDICAL HISTORY : None SURGICAL HISTORY : None. ENCOUNTER: Initial ACUITY: 1 day PAIN SCALE: 4/10 LOCATION: Left chest TECHNIQUE: Volumetric scanning of the chest was performed. Using automated exposure control and adjustment of t he mA and/or kV according to patient size, radiation dose was kept as low as reasonably achievable to obtain optimal diagnostic quality images. DICOM format image data is available electronically for review and comparison. Follow-up recommendations for detected pulmonary nodules are based at a minimum on nodule size and pa tient risk factors according to Fleischner Society Guidelines. FINDINGS: There is a nondisplaced first right rib fracture and a questionable nondisplaced fracture of the medi al right ninth rib. There is no pneumothorax. There is dependent atelectasis in both lungs with possible small right lung contusion adjacent to major fissure. No evidence for traumatic aortic injury. No mediastinal hematoma. Upper abdomen unremarkable. CONCLUSION: 1. Nondisplaced fractures right first rib and ninth rib medially. No pneumothorax or effusion. Small right lung contusion. Nestor Pierce MD on December 09, 2016 at 0:20 Board Certified Radiologist. This report was verified electronically.
--- NOTE | 2016-12-09 00:33 | RADRPT ---
EXAM DATE/TIME: 12/08/2016 23:24 [facility] COMPARISON: No previous studies available for comparison. INDICATIONS : Trauma; fell off of roof. IV CONTRAST: 96 cc Omnipaque 350 (iohexol) IV ; Cumulative dose for multiple exams. ORAL CONTRAST: No oral contrast ingested. RADIATION DOSE: 9.96 CTDIvol (mGy) ; Combined studies - Thorax/Abdomen/Pelvis MEDICAL HISTORY : None SURGICAL HISTORY : None. ENCOUNTER: Initial ACUITY: 1 day PAIN SCALE: 4/10 LOCATION: Left pelvis TECHNIQUE: Volumetric scanning of the abdomen and pelvis was performed. Using automated exposure control and ad justment of the mA and/or kV according to patient size, radiation dose was kept as low as reasonably achievable to obtain optimal diagnostic quality images. DICOM format image data is available electro nically for review and comparison. FINDINGS: There are relatively nondisplaced fractures through the left pubic bone, left inferior pubic ramus, l eft superior pubic ramus extending into the anterior column of the left acetabulum. There is a nondis placed fracture extending through the left sacral ala. No acute findings in the liver, spleen, adrenals, kidneys or pancreas. No calcified gallstones. There is a hematoma in the left pelvic sidewall without significant mass effect. There is also some p resacral hemorrhage measuring up to about 2.5 cm in thickness. CONCLUSION: 1. There are nondisplaced fractures of the left pubic bone, superior and inferior pubic rami, anterio r column left acetabulum and left sacral ala. Small left pelvic sidewall and presacral hematoma. 2. No solid visceral injury identified. Nestor Pierce MD on December 09, 2016 at 0:25 Board Certified Radiologist. This report was verified electronically.
--- NOTE | 2016-12-09 00:40 | RADRPT ---
EXAM DATE/TIME: 12/08/2016 23:24 [facility] COMPARISON: No previous studies available for comparison. INDICATIONS : Trauma; fell off of roof. RADIATION DOSE: ; Reconstructed from previous dataset, no dose MEDICAL HISTORY : None SURGICAL HISTORY : None. ENCOUNTER: Initial ACUITY: 1 day PAIN SCALE: 3/10 LOCATION: mid-back. TECHNIQUE: Volumetric scanning of the thoracic spine was performed. Multiplanar reconstructions in the sagittal , coronal and oblique axial planes were performed. Using automated exposure control and adjustment o f the mA and/or kV according to patient size, radiation dose was kept as low as reasonably achievable to obtain optimal diagnostic quality images. DICOM format image data is available electronically f or review and comparison. FINDINGS: The vertebral bodies of the thoracic spine are in normal alignment without evidence of subluxation. Vertebral body height is maintained. No fractures are seen. T1-T2: Normal. T2-T3: The thecal sac has a normal diameter. No evidence of disc bulge or protrusion. T3-T4: The thecal sac has a normal diameter. No evidence of disc bulge or protrusion. T4-T5: The thecal sac has a normal diameter. No evidence of disc bulge or protrusion. T5-T6: The thecal sac has a normal diameter. No evidence of disc bulge or protrusion. T6-T7: The thecal sac has a normal diameter. No evidence of disc bulge or protrusion. T7-T8: The thecal sac has a normal diameter. No evidence of disc bulge or protrusion. T8-T9: The thecal sac has a normal diameter. No evidence of disc bulge or protrusion. T9-T10: The thecal sac has a normal diameter. No evidence of disc bulge or protrusion. T10-T11: The thecal sac has a normal diameter. No evidence of disc bulge or protrusion. T11-T12: The thecal sac has a normal diameter. No evidence of disc bulge or protrusion. T12-L1: The thecal sac has a normal diameter. No evidence of disc bulge or protrusion. CONCLUSION: 1. No acute thoracic spine fracture. Incidental fracture of medial right first rib and probably media l right ninth rib. Exam degraded by some motion artifact. Nestor Pierce MD on December 09, 2016 at 0:32 Board Certified Radiologist. This report was verified electronically.
--- NOTE | 2016-12-09 00:53 | RADRPT ---
EXAM DATE/TIME: 12/08/2016 23:24 [facility] COMPARISON: No previous studies available for comparison. INDICATIONS : Trauma; fell from roof. RADIATION DOSE: ; Reconstructed from previous dataset, no dose MEDICAL HISTORY : None SURGICAL HISTORY : None. ENCOUNTER: Initial ACUITY: 1 day PAIN SCALE: 0/10 LOCATION: lower back. TECHNIQUE: Volumetric scanning of the lumbar spine was performed. Multiplanar reconstructions in the sagittal, coronal and oblique axial planes were performed. Using automated exposure control and adjustment of the mA and/or kV according to patient size, radiation dose was kept as low as reasonably achievable t o obtain optimal diagnostic quality images. DICOM format image data is available electronically for review and comparison. FINDINGS: VERTEBRAE: Normal vertebral body height. ALIGNMENT: No evidence of subluxation. T12-L1: The thecal sac has a normal diameter. No evidence of disc bulge or protrusion. The neural foramina are patent bilaterally. L1-L2: The thecal sac has a normal diameter. No evidence of disc bulge or protrusion. The neural foramina are patent bilaterally. L2-L3: The thecal sac has a normal diameter. No evidence of disc bulge or protrusion. The neural foramina are patent bilaterally. L3-L4: The thecal sac has a normal diameter. No evidence of disc bulge or protrusion. The neural foramina are patent bilaterally. L4-L5: The thecal sac has a normal diameter. No evidence of disc bulge or protrusion. The neural foramina are patent bilaterally. L5-S1: The thecal sac has a normal diameter. No evidence of disc bulge or protrusion. The neural foramina are patent bilaterally. CONCLUSION: 1. No acute lumbar spine fracture. Left sacral ala fracture with mild displacement. Nestor Pierce MD on December 09, 2016 at 0:45 Board Certified Radiologist. This report was verified electronically.
--- NOTE | 2016-12-09 01:18 | RADRPT ---
EXAM DATE/TIME: 12/09/2016 00:43 [facility] COMPARISON: No previous studies available for comparison. INDICATIONS : Post reduction. MEDICAL HISTORY : None. SURGICAL HISTORY : None. ENCOUNTER: Initial ACUITY: 1 day PAIN SCORE: 0/10 LOCATION: Left wrist FINDINGS: Two view examination of the left wrist demonstrates slight improvement in alignment compared with the prior study. No dislocation. CONCLUSION: 1. Casting of left wrist with slight improvement in fracture alignment. Nestor Pierce MD on December 09, 2016 at 1:15 Board Certified Radiologist. This report was verified electronically.
[2016-12-09] MEDS: MORPHINE SULFATE 4 MG/ML INJ IV PUSH PRN ×2 (03:31→07:01)
[2016-12-09 03:55] VITALS: BP 117/70; PULSE 63; RESP 18; TEMP 97.6; O2SAT 94
[2016-12-09] MEDS ORDERED: CHLORHEXIDINE GLUCONATE 2 % 1 PACK (2 CLOTHS) TOPICAL PRN (04:30)
[2016-12-09] MEDS ORDERED: INSULIN HUMAN REGULAR 1,000 UNITS/10 ML VIAL SQ PRN (04:30)
[2016-12-09] MEDS ORDERED: POVIDONE IODINE 5% (ANTISEPSIS KIT) 4 APPLICATIONS EACH NARE PRN (04:30)
[2016-12-09] MEDS ORDERED: METOPROLOL TARTRATE 25 MG TAB PO PRN (04:30)
[2016-12-09] MEDS ORDERED: LACTATED RINGER'S 1000 ML IV PRN (04:30)
[2016-12-09] MEDS ORDERED: SODIUM CHLORID 0.9% 500 ML IV PRN (04:30)
[2016-12-09] MEDS ORDERED: SODIUM CHLORIDE 0.9% FLUSH 10 ML FLUSH IV FLUSH PRN (06:15)
[2016-12-09] MEDS ORDERED: ENALAPRILAT 1.25 MG/ML VIAL IV PRN (06:15)
[2016-12-09] MEDS ORDERED: HYDR-3580 PO (06:55)
--- NOTE | 2016-12-09 06:55 | PD.ORT.PN ---
Subjective Subjective Remarks Fall from roof with complaints of pain to left wrist pelvis, right knee and mandible Objective Vitals Vital Signs Date Time Temp Pulse Resp B/P (MAP) Pulse Ox O2 Delivery O2 Flow Rate FiO2 12/09/16 03:55 97.6 63 18 117/70 (86) 94 12/09/16 00:20 98 Nasal Cannula 3.00 12/09/16 00:20 98 3.00 12/09/16 00:20 98 12/08/16 20:59 96 Nasal Cannula 2.00 12/08/16 20:59 22 96 Nasal Cannula 2.00 12/08/16 20:55 97.8 73 16 121/79 (93) 98 I/O 12/08/16 12/08/16 12/08/16 12/09/16 12/09/16 12/09/16 07:00 15:00 23:00 07:00 15:00 23:00 Intake Total 0 ml Balance 0 ml Intake Oral 0 ml # Voids 0 # Bowel Movements 0 Result Diagram: 12/08/16 2100 Other Results Laboratory Tests Test 12/08/16 21:00 Prothromb Time International Ratio 1.0 RATIO Prothrombin Time 11.2 SEC (9.8-11.6) Imaging Last 24 hours Impressions Wrist X-Ray 12/09/1646 Signed Impressions: Service Date/Time: Friday, December 09, 2016 00:43 - CONCLUSION: 1. Casting of left wrist with slight improvement in fracture alignment. Nestor Pierce MD Wrist X-Ray 12/08/162103 Signed Impressions: Service Date/Time: Thursday, December 08, 2016 22:55 - CONCLUSION: 1. Comminuted intra-articular fracture distal radius and left ulna styloid fracture with mild displacement. No dislocation. Nestor Pierce MD Thoracic Spine CT 12/08/162103 Signed Impressions: Service Date/Time: Thursday, December 08, 2016 23:24 - CONCLUSION: 1. No acute thoracic spine fracture. Incidental fracture of medial right first rib and probably medial right ninth rib. Exam degraded by some motion artifact. Nestor Pierce MD Maxillofacial CT 12/08/162103 Signed Impressions: Service Date/Time: Thursday, December 08, 2016 23:16 - CONCLUSION: 1. Displaced fracture through the right mandibular head and neck. 2. Nondisplaced fractures of the left maxillary sinus and anterior process of the maxilla. Nestor Pierce MD Lumbar Spine CT 12/08/162103 Signed Impressions: Service Date/Time: Thursday, December 08, 2016 23:24 - CONCLUSION: 1. No acute lumbar spine fracture. Left sacral ala fracture with mild displacement. Nestor Pierce MD Knee X-Ray 12/08/162103 Signed Impressions: Service Date/Time: Thursday, December 08, 2016 22:49 - CONCLUSION: No acute disease. Nestor Pierce MD Hip and Pelvis X-Ray 12/08/162103 Signed Impressions: Service Date/Time: Thursday, December 08, 2016 22:49 - CONCLUSION: 1. Fracture left superior pubic ramus and left pubic bone, relatively nondisplaced. Left hip appears intact. CT pending. Nestor Pierce MD Head CT 12/08/162103 Signed Impressions: Service Date/Time: Thursday, December 08, 2016 23:12 - CONCLUSION: 1. No acute intracranial abnormalities. Fracture of the right mandibular head and neck and left maxillary sinus. Nestor Pierce MD Hand X-Ray 12/08/162103 Signed Impressions: Service Date/Time: Thursday, December 08, 2016 22:56 - CONCLUSION: 1. Fracture of the left wrist. No left hand fracture identified. Nestor Pierce MD Chest X-Ray 12/08/162103 Signed Impressions: Service Date/Time: Thursday, December 08, 2016 22:53 - CONCLUSION: Normal examination. Nestor Pierce MD Chest CT 12/08/162103 Signed Impressions: Service Date/Time: Thursday, December 08, 2016 23:24 - CONCLUSION: 1. Nondisplaced fractures right first rib and ninth rib medially. No pneumothorax or effusion. Small right lung contusion. Nestor Pierce MD Cervical Spine CT 12/08/162103 Signed Impressions: Service Date/Time: Thursday, December 08, 2016 23:15 - CONCLUSION: 1. No acute cervical spine fracture. Nondisplaced right first rib fracture. Nestor Pierce MD Abdomen/Pelvis CT 12/08/162103 Signed Impressions: Service Date/Time: Thursday, December 08, 2016 23:24 - CONCLUSION: 1. There are nondisplaced fractures of the left pubic bone, superior and inferior pubic rami , anterior column left acetabulum and left sacral ala. Small left pelvic sidewall and presacral hematoma. 2. No solid visceral injury identified. Nestor Pierce MD Objective Remarks Left upper extremity: Clean dry dressings intact with splint and sling in place. Intact sensation over radial median nerve with slightly diminished sensation over ulnar nerve. Good capillary refills Pain to palpation over left pelvis. Minimal pain with passive motion of hip. Distally intact sensation with strong dorsal flexion plantar flexion foot Right lower extremity: No pain with hip or ankle range of motion. Swelling over medial knee. Stable to varus and valgus stresses. Assessment & Plan Assessment and Plan Left severely comminuted distal radius fracture Maintain splint Plan for surgery today nothing by mouth Sign consents Left inferior/superior pubic rami fractures and nondisplaced fracture of left sacrum Weightbearing as tolerated bilateral lower extremities Meir Beasley Jr. Dec 09, 2016 06:55
[2016-12-09] MEDS ORDERED: ACETAMINOPHEN 1000 MG/100 ML VIAL IV SCH (07:00)
[2016-12-09] MEDS ORDERED: LACTULOSE SYRUP 20 GM/30 ML CUP PO PRN (07:00)
[2016-12-09] MEDS: PANTOPRAZOLE SODIUM 40 MG VIAL IVP SCH (07:38)
[2016-12-09 08:00] VITALS: BP 134/80; PULSE 75; RESP 18; TEMP 98.9; O2SAT 98
[2016-12-09 08:53] LABS: AUTOMATED NEUTROPHIL # 7.6 TH/MM3 (1.8-7.7); BASOPHIL % 0.1 % (0.0-2.0); EOSINOPHIL # 0.1 TH/MM3 (0-0.4); EOSINOPHIL % 0.8 % (0.0-4.0); HEMATOCRIT 35.2 % (39.0-51.0); HEMO FLAGS DIFF FINAL; LYMPH % 14.8 % (9.0-44.0); LYMPHOCYTE # 1.4 TH/MM3 (1.0-4.8); MEAN CELL VOLUME 89.6 FL (80.0-100.0); MEAN CORPUSCULAR HGB CONC 33.5 % (32.0-36.0); MONO % 5.6 % (0.0-8.0); NEUT % 78.7 % (16.0-70.0); PLATELET COUNT 108 TH/MM3 (150-450); RED BLOOD COUNT 3.93 MIL/MM3 (4.50-5.90); RED CELL DISTRIBUTION WIDTH 12.9 % (11.6-17.2); WHITE BLOOD COUNT 9.7 TH/MM3 (4.0-11.0)
[2016-12-09] MEDS ORDERED: DOCUSATE SODIUM 50 MG/SENNA 8.6 MG TAB PO SCH (09:00)
[2016-12-09 09:30] LABS: BICARBONATE 28.9 MEQ/L (21.0-32.0); POTASSIUM 3.7 MEQ/L (3.5-5.1)
--- NOTE | 2016-12-09 10:48 | MB ---
cc: SHANDA KEYES DMD DATE OF CONSULTATION: 12/09/2016 REASON FOR CONSULTATION Facial fractures. HISTORY OF PRESENT ILLNESS This is a 36-year-old male who came in with via private vehicle status post falling from a roof. He denies any loss of consciousness. He denies any fainting. He said he just slipped and fell off the roof. I have seen and examined this patient this morning. He is awake, alert and oriented x3. He reports soreness in his hip, wrist and lower extremity. He denies any fever, chills, nausea, vomiting, shortness of breath or any difficulty breathing. He reports that his bite is out of occlusion, his bite does not feel normal. He reports also that his tooth is loose. PAST MEDICAL HISTORY History of lower back pain. PAST SURGICAL HISTORY Denied. MEDICATIONS Denied. ALLERGIES Denied. SOCIAL HISTORY Denies any alcohol, tobacco or any illicit drug use. PHYSICAL EXAMINATION VITAL SIGNS: Temperature is 98.9, pulse 75, respirations 18, blood pressure 134/80, oxygen saturation 98%. ORAL MAXILLOFACIAL: He has dried heme on his lower lip and chin region. A laceration was closed in the ED. Facial bones have been palpated, no gross tenderness. Some mild tenderness on the right side of the face. Intraorally bite does not appear to be in occlusion. Tooth #9 is slightly moving. No active heme is noted. Tissues are pink and well-perfused. There appears to be some soft tissue trauma to the inside of his lower lip. IMAGING CT scan of the facial bones shows a right-sided condyle fracture which is displaced medially, the region of the condylar head/neck. There is also a fracture in the anterior region of the maxilla where the alveolus bone of tooth #10 is. Also, a nondisplaced fracture of the left maxillary sinus/fluid into the left maxillary sinus. LABORATORY White count 9.7, H&H 11.3 and 35.2, platelets 108. PT 11.2, INR 1.0, PTT 22.1. IMPRESSION There is a 36-year-old male status post fall from a roof with a right-sided condylar neck fracture, fracture of tooth #10 which is somewhat mobile. Some lacerations on his lower lip and chin have been closed in the ED. Left maxillary sinus fracture is nondisplaced. Fracture of what appears to be an alveolus in the region of tooth #10. PLAN Will plan to take the patient to the main operating room for closed reduction of his right condyle fracture and stabilization of tooth #10. The patient will be in arch bars so that will help stabilize the tooth. The benefits, risks, indications of the procedure, procedure in detail and the options of no treatment were all discussed including alternatives. The risks are not limited to any post-op pain, infection, bleeding, damage to the adjacent teeth, soft tissue, hard tissue, anesthesia complications, malunion, nonunion of the fracture sites, failure of tooth #10 and any other teeth, possible extractions, bone grafting, implants later on, possible root canal treatment, possible orthodontic or orthognathic surgery as required. The patient is aware that he will be wired for several weeks and he will be in rubber bands. All questions and concerns were addressed. Shanda Keyes DMD RRT/PATRICE /9:51 AM /10:03 AM
[2016-12-09] MEDS: HYDROmorphone HCL PF 1 MG/ML VIAL IVP PRN ×4 (11:01→23:59)
[2016-12-09 12:00] VITALS: BP 117/64; PULSE 78; RESP 18; TEMP 96.6; O2SAT 96
[2016-12-09] MEDS ORDERED: NEOSTIGMINE 3 MG/3 ML SYR IV ONE (12:00)
[2016-12-09] MEDS ORDERED: LIDOCAINE HCL 1% PF 5 ML AMPULE OTHER ONE (12:00)
[2016-12-09] MEDS ORDERED: ROCURONIUM INJ 50 MG/5 ML SYRINGE IV PUSH ONE (12:00)
[2016-12-09] MEDS ORDERED: GLYCOPYRROLATE 1 MG/5 ML SYRINGE IV PUSH ONE (12:00)
[2016-12-09] MEDS ORDERED: DEXAMETHASONE SOD PHOS 4 MG/ML VIAL IV ONE ×2 (12:00→12:28)
[2016-12-09] MEDS ORDERED: MIDAZOLAM HCL 2 MG/2 ML VIAL IV ONE (12:00)
[2016-12-09] MEDS ORDERED: ceFAZolin INJ 1,000 MG VIAL IV ONE (12:00)
[2016-12-09] MEDS ORDERED: ONDANSETRON HCL 4 MG/2 ML VIAL IV PUSH ONE ×2 (12:00→12:28)
--- NOTE | 2016-12-09 12:10 | HHI.PR ---
Subjective Subjective Notes Complains of "all over" pain Asking when he is going to the OR today Objective Vitals/I&O Vital Signs Date Time Temp Pulse Resp B/P (MAP) Pulse Ox O2 Delivery O2 Flow Rate FiO2 12/09/16 08:00 98.9 75 18 134/80 (98) 98 12/09/16 00:20 Nasal Cannula 3.00 Labs Laboratory Tests Test 12/08/16 21:00 12/09/16 08:33 White Blood Count 12.5 9.7 Red Blood Count 4.28 3.93 Hemoglobin 13.2 11.8 Bedside Hemoglobin 13.3 Hematocrit 38.2 35.2 Bedside Hematocrit 39.0 Mean Corpuscular Volume 89.2 89.6 Mean Corpuscular Hemoglobin 30.9 30.0 Mean Corpuscular Hemoglobin Concent 34.6 33.5 Red Cell Distribution Width 12.9 12.9 Platelet Count 162 108 Mean Platelet Volume 9.7 9.2 Neutrophils (%) (Auto) 66.5 78.7 Lymphocytes (%) (Auto) 29.3 14.8 Monocytes (%) (Auto) 3.3 5.6 Eosinophils (%) (Auto) 0.4 0.8 Basophils (%) (Auto) 0.5 0.1 Neutrophils # (Auto) 8.3 7.6 Lymphocytes # (Auto) 3.7 1.4 Monocytes # (Auto) 0.4 0.5 Eosinophils # (Auto) 0.0 0.1 Basophils # (Auto) 0.1 0.0 CBC Comment DIFF FINAL DIFF FINAL Differential Comment Prothrombin Time 11.2 Prothromb Time International Ratio 1.0 Activated Partial Thromboplast Time 22.1 Fibrinogen 120 Bedside Sodium 142 Bedside Potassium 3.6 Bedside Chloride 104 Bedside Blood Urea Nitrogen 11 Bedside Creatinine 1.1 Bedside Glucose 135 Ethyl Alcohol Level LESS THAN 3 Blood Urea Nitrogen 7 Creatinine 0.98 Random Glucose 98 Calcium Level 8.1 Sodium Level 139 Potassium Level 3.7 Chloride Level 105 Carbon Dioxide Level 28.9 Anion Gap 5 Estimat Glomerular Filtration Rate 88 Radiology Last Impressions Wrist X-Ray 12/09/16 0047 Signed Impressions: Service Date/Time: Friday, December 09, 2016 00:43 - CONCLUSION: 1. Casting of left wrist with slight improvement in fracture alignment. Nestor Pierce MD Thoracic Spine CT 12/08/162103 Signed Impressions: Service Date/Time: Thursday, December 08, 2016 23:24 - CONCLUSION: 1. No acute thoracic spine fracture. Incidental fracture of medial right first rib and probably medial right ninth rib. Exam degraded by some motion artifact. Nestor Pierce MD Maxillofacial CT 12/08/162103 Signed Impressions: Service Date/Time: Thursday, December 08, 2016 23:16 - CONCLUSION: 1. Displaced fracture through the right mandibular head and neck. 2. Nondisplaced fractures of the left maxillary sinus and anterior process of the maxilla. Nestor Pierce MD Lumbar Spine CT 12/08/162103 Signed Impressions: Service Date/Time: Thursday, December 08, 2016 23:24 - CONCLUSION: 1. No acute lumbar spine fracture. Left sacral ala fracture with mild displacement. Nestor Pierce MD Knee X-Ray 12/08/162103 Signed Impressions: Service Date/Time: Thursday, December 08, 2016 22:49 - CONCLUSION: No acute disease. Nestor Pierce MD Hip and Pelvis X-Ray 12/08/162103 Signed Impressions: Service Date/Time: Thursday, December 08, 2016 22:49 - CONCLUSION: 1. Fracture left superior pubic ramus and left pubic bone, relatively nondisplaced. Left hip appears intact. CT pending. Nestor Pierce MD Head CT 12/08/162103 Signed Impressions: Service Date/Time: Thursday, December 08, 2016 23:12 - CONCLUSION: 1. No acute intracranial abnormalities. Fracture of the right mandibular head and neck and left maxillary sinus. Nestor Pierce MD Hand X-Ray 12/08/162103 Signed Impressions: Service Date/Time: Thursday, December 08, 2016 22:56 - CONCLUSION: 1. Fracture of the left wrist. No left hand fracture identified. Nestor Pierce MD Chest X-Ray 12/08/162103 Signed Impressions: Service Date/Time: Thursday, December 08, 2016 22:53 - CONCLUSION: Normal examination. Nestor Pierce MD Chest CT 12/08/162103 Signed Impressions: Service Date/Time: Thursday, December 08, 2016 23:24 - CONCLUSION: 1. Nondisplaced fractures right first rib and ninth rib medially. No pneumothorax or effusion. Small right lung contusion. Nestor Pierce MD Cervical Spine CT 12/08/162103 Signed Impressions: Service Date/Time: Thursday, December 08, 2016 23:15 - CONCLUSION: 1. No acute cervical spine fracture. Nondisplaced right first rib fracture. Nestor Pierce MD Abdomen/Pelvis CT 12/08/162103 Signed Impressions: Service Date/Time: Thursday, December 08, 2016 23:24 - CONCLUSION: 1. There are nondisplaced fractures of the left pubic bone, superior and inferior pubic rami , anterior column left acetabulum and left sacral ala. Small left pelvic sidewall and presacral hematoma. 2. No solid visceral injury identified. Nestor Pierce MD Narrative Exam GENERAL: 36 year old well-nourished, well developed male lying in bed. SKIN: Warm and dry. Chin and lower lip sutures noted. HEAD: Normocephalic. ENT: No nasal bleeding or discharge. Mucous membranes pink and moist. NECK: Trachea midline. No JVD. CARDIOVASCULAR: Regular rate and rhythm. RESPIRATORY: No accessory muscle use. Lungs clear and diminished to auscultation. Breath sounds equal bilaterally. GASTROINTESTINAL: Abdomen soft, non-tender, nondistended. + BS. MUSCULOSKELETAL: Extremities without cyanosis, or edema. LUE soft splint with sling in place. MAEW. Skin warm and perfused. NEUROLOGICAL: Awake and alert. Normal speech. A/P Assessment and Plan YUHAAVIATAM:Fell off a roof approx 20-30ft landing on his left side. No LOC. INJURIES: LEFT radial/ulna fx RIGHT rib fxs (1, 9) RIGHT mandibular fx LEFT maxillary sinus and maxilla fx LEFT sacral ala fx LEFT superior and inferior pubic rami fxs LEFT acetabulum fx LEFT pelvic sidewall and presacral hematoma RIGHT lung contusion Chin lac (sutures) Lower lip through and through (sutures) Concussion PMHx: Chronic neck and back pain, PTSD Diet: NPO Pulm: IS Pain: Morphine IV, Dilaudid IV, Robaxin, IV Ofirmev x 1 day Activity: OOB. PT and OT ordered (WBAT BLE) GI: IV Protonix Bowel: Nona-colace, PRN Lactulose. LBM 0 DVT: SCDs LEFT radial/ulna fx Orthopedics consulted Plan for surgery today Pain control OT consulted RIGHT rib fxs, RIGHT lung contusion Supportive care Pain control Pulmonary toileting RIGHT mandibular fx, LEFT maxillary sinus and maxilla fx OMFS consulted Plan for surgery today with Dr Keyes Pain control LEFT sacral ala fx, LEFT superior and inferior pubic rami fxs, LEFT acetabulum fx Orthopedics consulted WBAT BLE Pain control LEFT pelvic sidewall and presacral hematoma Supportive care Pain control Monitor H&H Chin lac, Lower lip through and through Wash wounds daily with soap and water. Leave open to air. Sutures intact Case management consulted to assist with discharge planning. Plan of care discussed with patient and family member at bedside. The exam, history, and the medical decision-making described in the above note were completed with the assistance of the mid-level provider. I reviewed and agree with the findings presented. I attest that I had a [id number] encounter with the patient on the same day, and personally performed and documented my assessment and findings in the medical record. Leah Pham Dec 09, 2016 12:10 Steven Osorio MD Jan 07, 2017 12:29
[2016-12-09] MEDS ORDERED: NORMOSOL R INJ 1,000 ML IV ONE (12:28)
[2016-12-09] MEDS: METHOCARBAMOL 500 MG TAB PO SCH ×2 (14:00→22:00)
[2016-12-09] MEDS ORDERED: CHLORHEXIDINE GLUCONATE 0.12% 15 ML CUP ONE (14:12)
[2016-12-09] MEDS ORDERED: VANCOMYCIN HCL 1000 MG VIAL ONE (15:45)
[2016-12-09] MEDS ORDERED: ceFAZolin INJ 1,000 MG VIAL ONE (15:45)
[2016-12-09] MEDS: SODIUM CHLOR 0.9% 1000 ML INJ 1,000 ML IV SCH ×2 (16:09→18:38)
[2016-12-09] MEDS ORDERED: HYDROmorphone HCL PF 2 MG/ML VIAL ONE (16:40)
--- NOTE | 2016-12-09 17:22 | PD.OP ---
cc: Camacho Kilpatrick MD Operative Report Date of Surgery: Dec 09, 2016 Preoperative Diagnosis: Comminuted intra-articular left distal radius fracture Postoperative Diagnosis: Procedure: Open reduction internal fixation left distal radius intra-articular fracture Anesthesia: Gen. Surgeon: Camacho Kilpatrick Project Controls Scheduler(s): Michael Beasley PA-C The surgical procedure was assisted by my physician assistant clinical nurse manager. My P.A. presence was necessary throughout this case for the manipulation and positioning of the surgical extremity. My P.A. was assisting me throughout the duration of this procedure. The skill set of a physician assistant clinical nurse manager was medically necessary to complete this procedure. During the surgical case the surgical manager was working at the back table and the physician assistant clinical nurse manager was directly assisting me. Operation and Findings: Patient was seen and evaluated preoperatively and found to have a displaced comminuted intra-articular left distal radius fracture. Informed consent was obtained after detailed discussion of risk and benefits including bleeding, infection, injury to arteries, nerves, and blood vessels, weakness and numbness of hand, and tendon rupture. Informed consent was obtained. Patient received IV antibiotics prior to incision. Timeout procedure was performed. Operative extremity was prepped with alcohol followed by Hibiclens and draped usual sterile fashion. A standard volar approach to the distal radius was utilized. A 3 inch incision was made over the FCR tendon. Tendon sheath was opened. Pronator quadratus was elevated up. The fracture site was now visualized. The fracture did have intra-articular extension. Traction was applied. The articular surface was reduced. Fracture fragments were manipulated to achieve excellent reduction. K wires were used to hold provisional fixation. Fluoroscopy confirmed appropriate alignment of fracture. A Synthes 2 column variable angle distal radius plate was selected. Plate was provisionally fixed to bone with K wires. The plate was intentionally placed close to the articular surface because of the distal nature of the fracture. 2.7 and 2.4 cortical screws were used to compress plate to bone. Fluoroscopy confirmed appropriate alignment of fracture with well-placed hardware. Multiple 2.4 locking screws were now placed distally. Screws were predrilled and measured for appropriate length. 2 additional screws were placed into the shaft. K wires were removed. Final fluoroscopy revealed excellent of fracture with well-placed hardware. The wound was thoroughly irrigated with sterile saline. Subcutaneous tissue was closed with 3-0 Vicryl and skin was closed with 3-0 nylon. Sterile dressings were applied with Xeroform, 4 x 4, soft roll, and a well padded volar splint. Patient was awakened and transferred to recovery room in stable condition Camacho Kilpatrick MD Dec 09, 2016 17:22
[2016-12-09] MEDS ORDERED: ACETAMINOPHEN/HYDROcodone 325 MG/10 MG TAB PO PRN (17:30)
--- NOTE | 2016-12-09 17:36 | RADRPT ---
EXAM DATE/TIME: 12/09/2016 17:10 [facility] COMPARISON: WRIST LEFT LIMITED (AP & LAT), December 09, 2016, 0:43. INDICATIONS : ORIF of the left wrist. MEDICAL HISTORY : None. SURGICAL HISTORY : None. ENCOUNTER: Subsequent ACUITY: 2 days PAIN SCORE: Non-responsive. LOCATION: Left upper extremity FINDINGS: The spot intraoperative fluoroscopic views of the left wrist demonstrate volar plate and screw fixati on across the distal radial metaphyseal fracture with excellent alignment of the distal radius. A sli ghtly displaced fracture of the ulnar styloid is again seen. CONCLUSION: ORIF left wrist fracture. Nitin Paulson MD on December 09, 2016 at 17:34 Board Certified Radiologist. This report was verified electronically.
[2016-12-09] MEDS ORDERED: BACITRACIN TOP OINT 15 GM TUBE ONE (17:48)
[2016-12-09] MEDS ORDERED: LIDOCAINE 2%/EPINEPHrine 1:100,000 20ML MDV INFIL ONE (18:00)
[2016-12-09] MEDS ORDERED: *MEPERIDINE 25 MG INJ VIAL PERIprocedural Use ONLY ONE (18:10)
--- NOTE | 2016-12-09 18:10 | HHI.PR ---
Immediate Post Op Note Procedure Date: Dec 09, 2016 Pre Op Diagnosis: right condyle fracture loose tooth #10/ alveolus fx Post Op Diagnosis: mark Surgeon: Matt Keyes [employer] Project Manager(s): gualberto macdonald Procedure: closed reduction of right condyle fracture stabilization of tooth #10/alveolus exam under anesthesia Complications: none Estimated blood loss: minimal Anesthesia: General, Local (2%lidocaine with 1:100,000 epi 6cc) Drains: None Patient to: PACU Patient Condition: Good Date/Time of Procedure: SEE SURGICAL CARE RECORD Matt Keyes DMD Dec 09, 2016 18:10
--- NOTE | 2016-12-09 18:20 | MB ---
cc: LINDA DELGADO DATE OF ADMISSION 12/08/16 DATE OF CONSULTATION 12/09/2016 REASON FOR CONSULTATION 1. Left distal radius fracture. 2. Left-sided pelvic fractures. HISTORY OF PRESENT ILLNESS Beto is a 36-year-old male who was working on a friend's roof. He slipped and fell. He fell approximately 20 feet. He landed mostly on his left side. He had immediate left wrist pain and left-sided pelvic pain. He presented to the emergency room. X-rays and evaluation revealed facial fractures, left distal radius fracture, and left-sided pubic rami and sacral fractures. He is currently awake, alert on the orthopedic floor. He complains of pain. The pain is worse with movement. PAST MEDICAL HISTORY Illnesses - Chronic low back pain. SURGERIES Knee arthroscopy. ALLERGIES None MEDICATIONS Hydrocodone. SOCIAL HISTORY The patient drinks alcohol. He uses chewing tobacco. He states that he has not used drugs in over a year. FAMILY HISTORY Noncontributory. REVIEW OF SYSTEMS The patient denies headache, visual changes, neck pain, chest pain, shortness of breath, abdominal pain, nausea or vomiting or recent weight loss or numbness or tingling of extremities. He complains of left wrist pain, facial pain and left-sided pelvic pain. PHYSICAL EXAMINATION GENERAL: The patient is a well-developed, well-nourished 36-year male. He is awake and alert. He is mildly anxious and appears to be moderately uncomfortable. VITAL SIGNS: Temperature 96.6, pulse 78, respirations 18, blood pressure 117/64, O2 sat 96% on 3 liters nasal cannula. HEENT: Head - The patient is normocephalic. Pupils are equal. NECK: Soft, nontender. Trachea is midline. ABDOMEN: Soft, nontender, nondistended. EXTREMITIES: Examination of left arm reveals no tension of the shoulder or elbow. He is diffusely tender around the wrist. He has pain with any wrist motion. Skin is intact. He has good cap refill in his fingers. Sensation is intact in all fingers. Examination of right arm reveals no pain or deformity with shoulder, elbow or wrist motion. He has intact sensation in all fingers. He has good cap refill in all fingers. Skin is intact. Examination of bilateral lower extremities reveals minimal pain with gentle hip, knee or ankle motion. Skin is intact. Dorsalis pedis pulses are palpable. Examination of his pelvis reveals pain with AP and lateral compression. He is very tender to palpation over the left sided pubic rami. IMAGING STUDIES X-rays of left wrist reviewed. X-rays reveal a displaced intra-articular left distal radius fracture. CT scan of the pelvis was reviewed. The patient has minimally displaced left sided pubic rami fractures along with minimally displaced left-sided sacral fracture. IMPRESSION 1. Facial fractures. 2. Left distal radius fracture. 3. Left-sided pelvic ring fractures. PLAN Treatment options were discussed with the patient. At this point, I would recommend open reduction internal fixation of left distal radius. Facial surgeon will be called to evaluate facial fractures. I would recommend nonoperative treatment of his pelvic fractures. He may weight bear as tolerated on his lower extremities. He will need to be non-weightbearing of his left arm. Risks of surgery include bleeding, infection, injury to arteries, nerves and blood vessels, nonunion, malunion, tendon rupture, painful hardware, wrist stiffness, wrist arthritis, need for revision surgery as well as medical complications including blood clot, stroke, heart attack and were discussed. All questions were answered. I will plan on surgery today. A mid-level provider in my office (nurse practitioner or physician junior administrative assistant) may see this patient on follow-up visits and continue to implement the objectives of this plan including: Starting or adjusting medications, injections , cast application, orthotics, brace application, physical therapy, radiological studies (including x-ray, MRI, CT, ultrasound, bone scan), vascular studies, neurologic studies, specialist consultation, and proceeding with surgical management, as appropriate. MD HAJA Skaggs/ /5:23 PM /6:02 PM BRITTNY
[2016-12-09] MEDS ORDERED: DO NOT ADM ANY ANTICOAGULANT DRUGS PRN (18:30)
[2016-12-09 19:50] VITALS: BP 141/87; PULSE 55; RESP 16; TEMP 97; O2SAT 96
--- NOTE | 2016-12-09 20:04 | MP ---
cc: SHANDA KEYES DMD DATE OF SURGERY: 12/09/2016 PREOPERATIVE DIAGNOSIS: Right condyle fracture, loose tooth #10, alveolus fracture. POSTOPERATIVE DIAGNOSIS: Right condyle fracture, loose tooth #10, alveolus fracture. OPERATION: Closed reduction of the right condyle fracture and stabilization of tooth #10 along with the alveolus. Examination under anesthesia. ANESTHESIA: General. 2% lidocaine with 1:100,000 epinephrine, approximately 6 cc. SURGEON: Dr. Keyes. AUTO PAINTER: Everett Madrigal. COMPLICATIONS: None. ESTIMATED BLOOD LOSS: Minimal DISPOSITION: The patient tolerated the procedure well, extubated and taken to the PACU. INDICATIONS FOR PROCEDURE: This is a 36 year-old male who was helping his friend and fell off the roof. He fell and he had a right condylar neck fracture that displaced medially, bite is not in occlusion. Also during the fall, tooth #10, the alveolus is loose. It is going to require stabilization, both the tooth and the fracture. He has a laceration on his lips and chin which was closed by the ED. Benefits, risks, indication of the procedure, procedure in detail and the options of no treatment were all discussed with this patient. Risks not limited to any postop pain, infection, bleeding, damage to the adjacent teeth, soft tissue, hard tissue, anesthesia complications, numbness, malunion, nonunion of fracture sites, further surgeries as required, including orthognathic, dental correction, possible extraction of tooth #10, possible root canal on any other teeth. Note that the patient's left maxillary sinus fractures do not require any treatment at this point. PROCEDURE IN DETAIL FOLLOWS: The patient was met perioperatively. All questions and concerns were addressed. Consent was signed in the chart. The patient was taken to operating suite, table #11, intubated nasally. The tube was secured and the head was wrapped in a standard OMS fashion. The patient was prepped with Betadine solution. The patient was prepped in normal sterile fashion. At this time a time-out was taken to identify the patient, the site, the procedure, surgeon. All were in agreement. Bite block was gently placed on left side of the mouth. The back of the throat was suctioned. Moistened Ray-Radha was used as a throat pack. Examination under anesthesia shows the laceration of his lower lip, that is stable at this point. Also, he has a chip on the lower right dentition, canine premolars, also tooth #10 is moving, and alveolus component in that. The mouth was irrigated with Peridex solution, 2% lidocaine with 1:100,000 epinephrine was injected in the maxillary mandibular vestibules. Arch bars were placed in the molar to molar regions, upper and lower with 24 gauge wires. Tooth #10 was stabilized with another 24 gauge wire around the arch bar. Once this was done the throat pack was removed, the back of throat was suctioned. Bite block was removed. The patient was placed into intermaxillary fixation using 24-gauge wires. The wound on the lower lip was also refined using 3-0 chromic suture. The patient tolerated procedure well. No complications noted. All the sponge and needle counts were accounted for at the end of the procedure. Shanda Keyes DMD RRT/JAI /6:06 PM /7:39 PM
[2016-12-10] VITALS (7 sets, daily range): BP systolic 116–143; BP diastolic 74–84; PULSE 64–104; RESP 16–18; TEMP 96–98.3; O2SAT 95–98
[2016-12-10 05:49] LABS: AUTOMATED NEUTROPHIL # 11.9 TH/MM3 (1.8-7.7); BASOPHIL % 0.1 % (0.0-2.0); HEMATOCRIT 32.6 % (39.0-51.0); HEMO FLAGS DIFF FINAL; LYMPH % 4.9 % (9.0-44.0); LYMPHOCYTE # 0.6 TH/MM3 (1.0-4.8); MEAN CELL VOLUME 88.5 FL (80.0-100.0); MEAN CORPUSCULAR HEMOGLOBIN 30.1 PG (27.0-34.0); PLATELET COUNT 105 TH/MM3 (150-450); RED BLOOD COUNT 3.69 MIL/MM3 (4.50-5.90); RED CELL DISTRIBUTION WIDTH 12.9 % (11.6-17.2); WHITE BLOOD COUNT 13.3 TH/MM3 (4.0-11.0)
[2016-12-10] MEDS: METHOCARBAMOL 500 MG TAB PO SCH (06:00)
[2016-12-10 06:06] LABS: ALT (GPT) 40 U/L (12-78); ANION GAP 7 MEQ/L (5-15); AST (GOT) 45 U/L (15-37); BICARBONATE 25.9 MEQ/L (21.0-32.0); BLOOD UREA NITROGEN 9 MG/DL (7-18); CHLORIDE 104 MEQ/L (98-107); GLOMERULAR FILTRATION RATE 99 ML/MIN (>89); SODIUM (NA) 137 MEQ/L (136-145)
[2016-12-10 06:09] LABS: ALKALINE PHOSPHATASE 32 U/L (45-117); TOTAL BILIRUBIN ADULT 1.6 MG/DL (0.2-1.0)
[2016-12-10] MEDS: HYDROmorphone HCL PF 1 MG/ML VIAL IVP PRN ×2 (08:09→22:54)
[2016-12-10] MEDS: PANTOPRAZOLE SODIUM 40 MG VIAL IVP SCH (08:09)
[2016-12-10] MEDS ORDERED: oxyCODONE HCL ORAL CONC 5 MG/0.25 ML SYRINGE PO PRN (08:15)
[2016-12-10] MEDS: ACETAMINOPHEN 1000 MG/100 ML VIAL IV SCH ×3 (08:15→19:51)
[2016-12-10] MEDS: SENNOSIDES SYRUP 8.8 MG/5 ML CUP PO SCH ×2 (09:00→19:51)
[2016-12-10] MEDS: oxyCODONE HCL ORAL CONC 20 MG/ML SYRINGE PO PRN ×4 (10:15→22:21)
--- NOTE | 2016-12-10 10:16 | PD.ORT.PN ---
Subjective Subjective Remarks POD 1 s/p ORIF left distal radius s/p left rami and left sacral fxs doing well. pain controlled. resting comfortably Objective Vitals Vital Signs Date Time Temp Pulse Resp B/P (MAP) Pulse Ox O2 Delivery O2 Flow Rate FiO2 12/10/16 08:00 97.4 64 18 116/74 (88) 98 12/10/16 04:30 96.9 90 17 142/77 (98) 96 12/10/16 00:35 96.8 104 17 137/78 (97) 96 12/09/16 19:50 97.0 55 16 141/87 (105) 96 12/09/16 18:45 54 15 140/86 (104) 93 Room Air 12/09/16 18:30 64 15 145/79 (101) 94 Room Air 12/09/16 18:15 59 15 158/73 (101) 95 Room Air 12/09/16 18:03 98.3 88 18 128/95 (106) 96 Room Air 12/09/16 12:00 96.6 78 18 117/64 (81) 96 I/O 12/09/16 12/09/16 12/09/16 12/10/16 12/10/16 12/10/16 07:00 15:00 23:00 07:00 15:00 23:00 Intake Total 0 ml 1680 ml 480 ml Output Total 675 ml 300 ml Balance 0 ml -675 ml 1380 ml 480 ml Intake Oral 0 ml 480 ml 480 ml Other 1200 ml Output Urine Total 675 ml 250 ml Estimated Blood Loss 50 ml # Voids 0 1 1 # Bowel Movements 0 0 0 0 Result Diagram: 12/10/16 0521 12/10/16 0521 Imaging Last 24 hours Impressions Wrist X-Ray 12/09/16 0047 Signed Impressions: Service Date/Time: Friday, December 09, 2016 00:43 - CONCLUSION: 1. Casting of left wrist with slight improvement in fracture alignment. Nestor Pierce MD Wrist X-Ray 12/08/162103 Signed Impressions: Service Date/Time: Thursday, December 08, 2016 22:55 - CONCLUSION: 1. Comminuted intra-articular fracture distal radius and left ulna styloid fracture with mild displacement. No dislocation. Nestor Pierce MD Thoracic Spine CT 12/08/162103 Signed Impressions: Service Date/Time: Thursday, December 08, 2016 23:24 - CONCLUSION: 1. No acute thoracic spine fracture. Incidental fracture of medial right first rib and probably medial right ninth rib. Exam degraded by some motion artifact. Nestor Pierce MD Maxillofacial CT 12/08/162103 Signed Impressions: Service Date/Time: Thursday, December 08, 2016 23:16 - CONCLUSION: 1. Displaced fracture through the right mandibular head and neck. 2. Nondisplaced fractures of the left maxillary sinus and anterior process of the maxilla. Nestor Pierce MD Lumbar Spine CT 12/08/162103 Signed Impressions: Service Date/Time: Thursday, December 08, 2016 23:24 - CONCLUSION: 1. No acute lumbar spine fracture. Left sacral ala fracture with mild displacement. Nestor Pierce MD Knee X-Ray 12/08/162103 Signed Impressions: Service Date/Time: Thursday, December 08, 2016 22:49 - CONCLUSION: No acute disease. Nestor Pierce MD Hip and Pelvis X-Ray 12/08/162103 Signed Impressions: Service Date/Time: Thursday, December 08, 2016 22:49 - CONCLUSION: 1. Fracture left superior pubic ramus and left pubic bone, relatively nondisplaced. Left hip appears intact. CT pending. Nestor Pierce MD Head CT 12/08/162103 Signed Impressions: Service Date/Time: Thursday, December 08, 2016 23:12 - CONCLUSION: 1. No acute intracranial abnormalities. Fracture of the right mandibular head and neck and left maxillary sinus. Nestor Pierce MD Hand X-Ray 12/08/162103 Signed Impressions: Service Date/Time: Thursday, December 08, 2016 22:56 - CONCLUSION: 1. Fracture of the left wrist. No left hand fracture identified. Nestor Pierce MD Chest X-Ray 12/08/162103 Signed Impressions: Service Date/Time: Thursday, December 08, 2016 22:53 - CONCLUSION: Normal examination. Nestor Pierce MD Chest CT 12/08/162103 Signed Impressions: Service Date/Time: Thursday, December 08, 2016 23:24 - CONCLUSION: 1. Nondisplaced fractures right first rib and ninth rib medially. No pneumothorax or effusion. Small right lung contusion. Nestor Pierce MD Cervical Spine CT 12/08/162103 Signed Impressions: Service Date/Time: Thursday, December 08, 2016 23:15 - CONCLUSION: 1. No acute cervical spine fracture. Nondisplaced right first rib fracture. Nestor Pierce MD Abdomen/Pelvis CT 12/08/162103 Signed Impressions: Service Date/Time: Thursday, December 08, 2016 23:24 - CONCLUSION: 1. There are nondisplaced fractures of the left pubic bone, superior and inferior pubic rami , anterior column left acetabulum and left sacral ala. Small left pelvic sidewall and presacral hematoma. 2. No solid visceral injury identified. Nestor Pierce MD Objective Remarks LUE: +sugar tong splint. intact. NVI. BLE: good motion of legs with minimal discomfort. nvi bilaterally Assessment & Plan Assessment and Plan 1) Left severely comminuted distal radius fracture s/p ORIF - POD 1 Maintain splint NWB 2) Left inferior/superior pubic rami fractures and nondisplaced fracture of left sacrum Weightbearing as tolerated bilateral lower extremities -ortho cleared for discharge home -f/u with [facility] or [facility] in 2 weeks Ramon Henao Dec 10, 2016 10:16
--- NOTE | 2016-12-10 11:05 | HHI.PR ---
Subjective Subjective Notes OOB in wheelchair Complains of left sided pain with standing Objective Vitals/I&O Vital Signs Date Time Temp Pulse Resp B/P (MAP) Pulse Ox O2 Delivery O2 Flow Rate FiO2 12/10/16 10:32 96 12/10/16 08:00 97.4 64 18 116/74 (88) 12/09/16 18:45 Room Air 12/09/16 00:20 3.00 Labs Laboratory Tests Test 12/10/16 05:21 White Blood Count 13.3 Red Blood Count 3.69 Hemoglobin 11.1 Hematocrit 32.6 Mean Corpuscular Volume 88.5 Mean Corpuscular Hemoglobin 30.1 Mean Corpuscular Hemoglobin Concent 34.0 Red Cell Distribution Width 12.9 Platelet Count 105 Mean Platelet Volume 9.3 Neutrophils (%) (Auto) 90.0 Lymphocytes (%) (Auto) 4.9 Monocytes (%) (Auto) 5.0 Eosinophils (%) (Auto) 0.0 Basophils (%) (Auto) 0.1 Neutrophils # (Auto) 11.9 Lymphocytes # (Auto) 0.6 Monocytes # (Auto) 0.7 Eosinophils # (Auto) 0.0 Basophils # (Auto) 0.0 CBC Comment DIFF FINAL Differential Comment Blood Urea Nitrogen 9 Creatinine 0.88 Random Glucose 130 Total Protein 6.6 Albumin 3.5 Calcium Level 8.3 Alkaline Phosphatase 32 Aspartate Amino Transf (AST/SGOT) 45 Alanine Aminotransferase (ALT/SGPT) 40 Total Bilirubin 1.6 Sodium Level 137 Potassium Level 4.0 Chloride Level 104 Carbon Dioxide Level 25.9 Anion Gap 7 Estimat Glomerular Filtration Rate 99 Radiology Last Impressions Wrist X-Ray 12/09/16 0047 Signed Impressions: Service Date/Time: Friday, December 09, 2016 00:43 - CONCLUSION: 1. Casting of left wrist with slight improvement in fracture alignment. Nestor Pierce MD Thoracic Spine CT 12/08/163 Signed Impressions: Service Date/Time: Thursday, December 08, 2016 23:24 - CONCLUSION: 1. No acute thoracic spine fracture. Incidental fracture of medial right first rib and probably medial right ninth rib. Exam degraded by some motion artifact. Nestor Pierce MD Maxillofacial CT 12/08/162103 Signed Impressions: Service Date/Time: Thursday, December 08, 2016 23:16 - CONCLUSION: 1. Displaced fracture through the right mandibular head and neck. 2. Nondisplaced fractures of the left maxillary sinus and anterior process of the maxilla. Nestor Pierce MD Lumbar Spine CT 12/08/162103 Signed Impressions: Service Date/Time: Thursday, December 08, 2016 23:24 - CONCLUSION: 1. No acute lumbar spine fracture. Left sacral ala fracture with mild displacement. Nestor Pierce MD Knee X-Ray 12/08/162103 Signed Impressions: Service Date/Time: Thursday, December 08, 2016 22:49 - CONCLUSION: No acute disease. Nestor Pierce MD Hip and Pelvis X-Ray 12/08/162103 Signed Impressions: Service Date/Time: Thursday, December 08, 2016 22:49 - CONCLUSION: 1. Fracture left superior pubic ramus and left pubic bone, relatively nondisplaced. Left hip appears intact. CT pending. Nestor Pierce MD Head CT 12/08/162103 Signed Impressions: Service Date/Time: Thursday, December 08, 2016 23:12 - CONCLUSION: 1. No acute intracranial abnormalities. Fracture of the right mandibular head and neck and left maxillary sinus. Nestor Pierce MD Hand X-Ray 12/08/162103 Signed Impressions: Service Date/Time: Thursday, December 08, 2016 22:56 - CONCLUSION: 1. Fracture of the left wrist. No left hand fracture identified. Nestor Pierce MD Chest X-Ray 12/08/162103 Signed Impressions: Service Date/Time: Thursday, December 08, 2016 22:53 - CONCLUSION: Normal examination. Nestor Pierce MD Chest CT 12/08/162103 Signed Impressions: Service Date/Time: Thursday, December 08, 2016 23:24 - CONCLUSION: 1. Nondisplaced fractures right first rib and ninth rib medially. No pneumothorax or effusion. Small right lung contusion. Nestor Pierce MD Cervical Spine CT 12/08/162103 Signed Impressions: Service Date/Time: Thursday, December 08, 2016 23:15 - CONCLUSION: 1. No acute cervical spine fracture. Nondisplaced right first rib fracture. Nestor Pierce MD Abdomen/Pelvis CT 12/08/162103 Signed Impressions: Service Date/Time: Thursday, December 08, 2016 23:24 - CONCLUSION: 1. There are nondisplaced fractures of the left pubic bone, superior and inferior pubic rami , anterior column left acetabulum and left sacral ala. Small left pelvic sidewall and presacral hematoma. 2. No solid visceral injury identified. Nestor Pierce MD Narrative Exam GENERAL: 36 year old well-nourished, well developed male OOB in wheelchair. SKIN: Warm and dry. Chin and lower lip sutures noted. HEAD: Normocephalic. ENT: No nasal bleeding or discharge. Mucous membranes pink and moist. NECK: Trachea midline. No JVD. CARDIOVASCULAR: Regular rate and rhythm. RESPIRATORY: No accessory muscle use. Lungs clear and diminished to auscultation. Breath sounds equal bilaterally. GASTROINTESTINAL: Abdomen soft, non-tender, nondistended. + BS. MUSCULOSKELETAL: Extremities without cyanosis, or edema. LUE soft splint with sling in place. MAEW. Skin warm and perfused. NEUROLOGICAL: Awake and alert. Normal speech- Jaw wired. A/P Assessment and Plan THREE AFFILIATED:Fell off a roof approx 20-30ft landing on his left side. No LOC. INJURIES: LEFT radial/ulna fx RIGHT rib fxs (1, 9) RIGHT mandibular fx LEFT maxillary sinus and maxilla fx LEFT sacral ala fx (non-op) LEFT superior and inferior pubic rami fxs (non-op) LEFT acetabulum fx (non-op) LEFT pelvic sidewall and presacral hematoma RIGHT lung contusion Chin lac (sutures) Lower lip through and through (sutures) Concussion PMHx: Chronic neck and back pain, PTSD Diet: Full liquids- Ensure with each meal Pulm: IS Pain: Dilaudid IV, IV Ofirmev x 1 day. Robaxin discontinued- patient does not want. Added Roxicodone liquid for better pain control. Activity: OOB. PT and OT ordered (WBAT BLE) GI: IV Protonix Bowel: Senna liquid BID, PRN Lactulose. LBM 0 DVT: SCDs, Lovenox 30 BID LEFT radial/ulna fx Orthopedics consulted 12/09: ORIF left distal radius intra-articular fracture Pain control OT consulted Orthopedics cleared for discharge F/U as outpatient RIGHT rib fxs, RIGHT lung contusion Supportive care Pain control Pulmonary toileting OOB- PT ordered Lovenox RIGHT mandibular fx, LEFT maxillary sinus and maxilla fx OMFS consulted 12/09: Closed reduction right condyle fracture and stabilization of tooth #10 along with the alveolus Pain control Full liquid diet ST consulted to eval patient for soft foods Ensure TID Wire cutters at bedside LEFT sacral ala fx, LEFT superior and inferior pubic rami fxs, LEFT acetabulum fx Orthopedics consulted Non-operative management WBAT BLE Pain control OOB- PT and OT ordered LEFT pelvic sidewall and presacral hematoma Supportive care Pain control H&H stable Chin lac, Lower lip through and through Wash wounds daily with soap and water. Leave open to air. Sutures intact Concussion Supportive care Avoid second head injury Neuropsychologist consulted Post-concussive education Case management consulted to assist with discharge planning. [facility] evaluating for possible placement. Plan of care discussed with patient and family member at bedside. Plan to DC to rehab in 1-2 days. Remarks seen and examined with SHOP TEACHER,agree with assessment and plan pain control PT/OT DVT prophylaxis Leah Pham Dec 10, 2016 11:05 Kassi Otoole MD Dec 10, 2016 14:45
--- NOTE | 2016-12-10 12:33 | HHI.PR ---
Subjective Remarks POD 1 s/p closed reduction of right condyle fracture/ and stabilization tooth # 10 pt seen and examined, AAOx3, NAD family at bedside tolerating po Objective Vital Signs Date Time Temp Pulse Resp B/P (MAP) Pulse Ox O2 Delivery O2 Flow Rate FiO2 12/10/16 10:32 96 12/10/16 08:00 97.4 64 18 116/74 (88) 98 12/10/16 04:30 96.9 90 17 142/77 (98) 96 12/10/16 00:35 96.8 104 17 137/78 (97) 96 12/09/16 19:50 97.0 55 16 141/87 (105) 96 12/09/16 18:45 54 15 140/86 (104) 93 Room Air 12/09/16 18:30 64 15 145/79 (101) 94 Room Air 12/09/16 18:15 59 15 158/73 (101) 95 Room Air 12/09/16 18:03 98.3 88 18 128/95 (106) 96 Room Air I/O 12/09/16 12/09/16 12/09/16 12/10/16 12/10/16 12/10/16 07:00 15:00 23:00 07:00 15:00 23:00 Intake Total 0 ml 1680 ml 480 ml Output Total 675 ml 300 ml Balance 0 ml -675 ml 1380 ml 480 ml Intake Oral 0 ml 480 ml 480 ml Other 1200 ml Output Urine Total 675 ml 250 ml Estimated Blood Loss 50 ml # Voids 0 1 1 # Bowel Movements 0 0 0 0 Result Diagram: 12/10/16 0521 12/10/16 0521 Objective Remarks no gross facial edema intraorally - tissues pink/well perfused arch bars/wires in place, bite in occlusion, tooth #10 stable wound margins well approximated, sutures intact/hemostatic- laceration wireless store manager in room/with pt Assessment and Plan Assessment and Plan POD 1 s/p closed reduction of right condyle fracture/ and stabilization tooth # 10 ok to d/c to home fro oms standpoint f/up dr keyes 1 week [phone] wire cutters with pt at all times - for emergency airway management send pt home with wire cutters maintain good oral hygiene full liquid diet Matt Keyes DMD Dec 10, 2016 12:33
[2016-12-10] MEDS ORDERED: SENN8.8L PO (14:19)
[2016-12-10] MEDS: ENOXAPARIN SODIUM 30 MG/0.3 ML SYRINGE SQ SCH ×2 (18:13→23:31)
[2016-12-10] MEDS: SODIUM CHLOR 0.9% 1000 ML INJ 1,000 ML IV SCH (19:48)
[2016-12-11 00:05] VITALS: BP 109/70; PULSE 95; RESP 16; TEMP 99.7; O2SAT 99
[2016-12-11] MEDS: ACETAMINOPHEN 1000 MG/100 ML VIAL IV SCH (02:22)
[2016-12-11] MEDS: oxyCODONE HCL ORAL CONC 20 MG/ML SYRINGE PO PRN ×6 (02:22→23:48)
[2016-12-11 03:40] VITALS: BP 148/91; PULSE 59; RESP 17; TEMP 97; O2SAT 99
[2016-12-11] MEDS: SODIUM CHLOR 0.9% 1000 ML INJ 1,000 ML IV SCH ×2 (04:53→12:58)
--- NOTE | 2016-12-11 07:03 | PD.ORT.PN ---
Subjective Subjective Remarks POD 2 s/p ORIF left distal radius s/p left rami and left sacral fxs doing well. pain controlled. resting comfortably. states difficulty with ambulation due to pelvic fxs Objective Vitals Vital Signs Date Time Temp Pulse Resp B/P (MAP) Pulse Ox O2 Delivery O2 Flow Rate FiO2 12/11/16 03:40 97.0 59 17 148/91 (110) 99 12/11/16 00:05 99.7 95 16 109/70 (83) 99 12/10/16 20:00 97.0 99 16 116/80 (92) 95 12/10/16 16:00 96.0 100 17 143/84 (103) 97 12/10/16 12:00 98.3 100 18 124/78 (93) 96 12/10/16 10:32 96 12/10/16 08:00 97.4 64 18 116/74 (88) 98 I/O 12/10/16 12/10/16 12/10/16 12/11/16 12/11/16 12/11/16 07:00 15:00 23:00 07:00 15:00 23:00 Intake Total 480 ml Balance 480 ml Intake Oral 480 ml # Voids 1 # Bowel Movements 0 Result Diagram: 12/10/16 0521 12/10/16 0521 Imaging Last 24 hours Impressions Wrist X-Ray 12/09/167 Signed Impressions: Service Date/Time: Friday, December 09, 2016 00:43 - CONCLUSION: 1. Casting of left wrist with slight improvement in fracture alignment. Nestor Pierce MD Wrist X-Ray 12/08/162103 Signed Impressions: Service Date/Time: Thursday, December 08, 2016 22:55 - CONCLUSION: 1. Comminuted intra-articular fracture distal radius and left ulna styloid fracture with mild displacement. No dislocation. Nestor Pierce MD Thoracic Spine CT 12/08/162103 Signed Impressions: Service Date/Time: Thursday, December 08, 2016 23:24 - CONCLUSION: 1. No acute thoracic spine fracture. Incidental fracture of medial right first rib and probably medial right ninth rib. Exam degraded by some motion artifact. Nestor Pierce MD Maxillofacial CT 12/08/162103 Signed Impressions: Service Date/Time: Thursday, December 08, 2016 23:16 - CONCLUSION: 1. Displaced fracture through the right mandibular head and neck. 2. Nondisplaced fractures of the left maxillary sinus and anterior process of the maxilla. Nestor Pierce MD Lumbar Spine CT 12/08/162103 Signed Impressions: Service Date/Time: Thursday, December 08, 2016 23:24 - CONCLUSION: 1. No acute lumbar spine fracture. Left sacral ala fracture with mild displacement. Nestor Pierce MD Knee X-Ray 12/08/162103 Signed Impressions: Service Date/Time: Thursday, December 08, 2016 22:49 - CONCLUSION: No acute disease. Nestor Pierce MD Hip and Pelvis X-Ray 12/08/162103 Signed Impressions: Service Date/Time: Thursday, December 08, 2016 22:49 - CONCLUSION: 1. Fracture left superior pubic ramus and left pubic bone, relatively nondisplaced. Left hip appears intact. CT pending. Nestor Pierce MD Head CT 12/08/162103 Signed Impressions: Service Date/Time: Thursday, December 08, 2016 23:12 - CONCLUSION: 1. No acute intracranial abnormalities. Fracture of the right mandibular head and neck and left maxillary sinus. Nestor Pierce MD Hand X-Ray 12/08/162103 Signed Impressions: Service Date/Time: Thursday, December 08, 2016 22:56 - CONCLUSION: 1. Fracture of the left wrist. No left hand fracture identified. Nestor Pierce MD Chest X-Ray 12/08/162103 Signed Impressions: Service Date/Time: Thursday, December 08, 2016 22:53 - CONCLUSION: Normal examination. Nestor Pierce MD Chest CT 12/08/162103 Signed Impressions: Service Date/Time: Thursday, December 08, 2016 23:24 - CONCLUSION: 1. Nondisplaced fractures right first rib and ninth rib medially. No pneumothorax or effusion. Small right lung contusion. Nestor Pierce MD Cervical Spine CT 12/08/162103 Signed Impressions: Service Date/Time: Thursday, December 08, 2016 23:15 - CONCLUSION: 1. No acute cervical spine fracture. Nondisplaced right first rib fracture. Nestor Pierce MD Abdomen/Pelvis CT 12/08/162103 Signed Impressions: Service Date/Time: Thursday, December 08, 2016 23:24 - CONCLUSION: 1. There are nondisplaced fractures of the left pubic bone, superior and inferior pubic rami , anterior column left acetabulum and left sacral ala. Small left pelvic sidewall and presacral hematoma. 2. No solid visceral injury identified. Nestor Pierce MD Objective Remarks LUE: +sugar tong splint. intact. NVI. BLE: good motion of legs with minimal discomfort. nvi bilaterally Assessment & Plan Assessment and Plan 1) Left severely comminuted distal radius fracture s/p ORIF - POD 2 Maintain splint NWB ok to use platform walker with weight on elbow 2) Left inferior/superior pubic rami fractures and nondisplaced fracture of left sacrum Weightbearing as tolerated bilateral lower extremities -ortho cleared for discharge home -f/u with [facility] or [facility] in 2 weeks Ramon Henao Dec 11, 2016 07:03
[2016-12-11] MEDS: SENNOSIDES SYRUP 8.8 MG/5 ML CUP PO SCH ×2 (07:41→19:50)
[2016-12-11] MEDS: PANTOPRAZOLE SODIUM 40 MG VIAL IVP SCH (07:41)
[2016-12-11 08:00] VITALS: BP 103/71; PULSE 80; RESP 18; TEMP 97.7; O2SAT 99
[2016-12-11] MEDS ORDERED: BISACODYL 10 MG SUPP RECTAL ONE (09:00)
[2016-12-11] MEDS: ENOXAPARIN SODIUM 30 MG/0.3 ML SYRINGE SQ SCH ×2 (11:26→23:48)
[2016-12-11] MEDS: LACTULOSE SYRUP 20 GM/30 ML CUP PO SCH (11:29)
[2016-12-11 11:45] VITALS: BP 115/74; PULSE 82; RESP 18; TEMP 98.4; O2SAT 97
--- NOTE | 2016-12-11 12:38 | RADRPT ---
EXAM DATE/TIME: 12/11/2016 11:48 [facility] COMPARISON: CHEST SINGLE AP, December 08, 2016, 22:53. INDICATIONS : Evaluate rib fractures. MEDICAL HISTORY : None. SURGICAL HISTORY : None. ENCOUNTER: Subsequent ACUITY: 3 days PAIN SCORE: 7/10 LOCATION: Bilateral chest FINDINGS: A single view of the chest demonstrates the lungs to be symmetrically aerated without evidence of mas s, infiltrate or effusion. The cardiomediastinal contours are unremarkable. Osseous structures are intact. CONCLUSION: No acute disease. Pedro Marsh MD on December 11, 2016 at 12:37 Board Certified Radiologist. This report was verified electronically.
--- NOTE | 2016-12-11 13:09 | HHI.PR ---
Subjective Subjective Notes PTD: 3 Patient asleep in bed. No distress noted. Arouses easily. MAEW. Patient complain of pain to his left hip when he moves. Describes difficulty sleeping last night. Objective Vitals/I&O Vital Signs Date Time Temp Pulse Resp B/P (MAP) Pulse Ox O2 Delivery O2 Flow Rate FiO2 12/11/16 12:26 18 12/11/16 08:00 97.7 80 103/71 (82) 99 12/09/16 18:45 Room Air 12/09/16 00:20 3.00 Labs Laboratory Tests Test 12/08/16 21:00 12/10/16 05:21 Bedside Hemoglobin 13.3 G/DL Bedside Hematocrit 39.0 % Prothrombin Time 11.2 SEC Prothromb Time International Ratio 1.0 RATIO Activated Partial Thromboplast Time 22.1 SEC Fibrinogen 120 mg/dL Bedside Sodium 142 MMOL/L Bedside Potassium 3.6 MMOL/L Bedside Chloride 104 MMOL/L Bedside Blood Urea Nitrogen 11 MG/DL Bedside Creatinine 1.1 MG/DL Bedside Glucose 135 MG/DL Ethyl Alcohol Level LESS THAN 3 MG/DL White Blood Count 13.3 TH/MM3 Red Blood Count 3.69 MIL/MM3 Hemoglobin 11.1 GM/DL Hematocrit 32.6 % Mean Corpuscular Volume 88.5 FL Mean Corpuscular Hemoglobin 30.1 PG Mean Corpuscular Hemoglobin Concent 34.0 % Red Cell Distribution Width 12.9 % Platelet Count 105 TH/MM3 Mean Platelet Volume 9.3 FL Neutrophils (%) (Auto) 90.0 % Lymphocytes (%) (Auto) 4.9 % Monocytes (%) (Auto) 5.0 % Eosinophils (%) (Auto) 0.0 % Basophils (%) (Auto) 0.1 % Neutrophils # (Auto) 11.9 TH/MM3 Lymphocytes # (Auto) 0.6 TH/MM3 Monocytes # (Auto) 0.7 TH/MM3 Eosinophils # (Auto) 0.0 TH/MM3 Basophils # (Auto) 0.0 TH/MM3 CBC Comment DIFF FINAL Differential Comment Blood Urea Nitrogen 9 MG/DL Creatinine 0.88 MG/DL Random Glucose 130 MG/DL Total Protein 6.6 GM/DL Albumin 3.5 GM/DL Calcium Level 8.3 MG/DL Alkaline Phosphatase 32 U/L Aspartate Amino Transf (AST/SGOT) 45 U/L Alanine Aminotransferase (ALT/SGPT) 40 U/L Total Bilirubin 1.6 MG/DL Sodium Level 137 MEQ/L Potassium Level 4.0 MEQ/L Chloride Level 104 MEQ/L Carbon Dioxide Level 25.9 MEQ/L Anion Gap 7 MEQ/L Estimat Glomerular Filtration Rate 99 ML/MIN Radiology Last 24 hours Impressions Chest X-Ray 12/11/16 0000 Signed Impressions: Service Date/Time: November 11:48 - CONCLUSION: No acute disease. Pedro Marsh MD Narrative Exam GENERAL: This is a 36-year-old male lying in bed. No distress. SKIN: Warm and dry. Abrasion to chin and lower lip. HEAD: Atraumatic. Normocephalic. EYES: PERRLA ENT: No nasal bleeding or discharge. Mucous membranes pink and moist. NECK: Trachea midline. No JVD. CARDIOVASCULAR: Regular rate and rhythm. RESPIRATORY: No accessory muscle use. Lungs are clear to auscultation. Breath sounds equal bilaterally. No distress or dyspnea. GASTROINTESTINAL: BS + x 4 quads. Abdomen soft, non-tender, nondistended. MUSCULOSKELETAL: Extremities without cyanosis, or edema. LEFT forearm in splint and wrapped in Lorenzo bandage. + peripheral pulses x 4 extremities. Warm with good capillary refill and sensation. MAEW. NEUROLOGICAL: Awake and alert. Normal speech and pattern. A/P Problem List: (1) Facial fracture due to fall ICD Codes: S02.92XA - Unspecified fracture of facial bones, initial encounter for closed fracture; W19.XXXA - Unspecified fall, initial encounter Status: Acute (2) Fracture of left radius and ulna ICD Codes: S52.92XA - Unspecified fracture of left forearm, initial encounter for closed fracture; S52.202A - Unspecified fracture of shaft of left ulna, initial encounter for closed fracture Status: Acute (3) Pelvic fracture ICD Codes: S32.9XXA - Fracture of unspecified parts of lumbosacral spine and pelvis, initial encounter for closed fracture Status: Acute (4) Right rib fracture ICD Codes: S22.31XA - Fracture of one rib, right side, initial encounter for closed fracture Status: Acute (5) Fall from roof ICD Codes: W13.2XXA - Fall from, out of or through roof, initial encounter Status: Acute Assessment and Plan [place]: This is a 36-year-old male who sustained a fall. He fell off a roof approximately 20-30 feet landing on his left side. No LOC. INJURIES: Concussion Chin lac (sutures) Lower lip through and through (sutures) RIGHT mandibular fx LEFT maxillary sinus and maxilla fx RIGHT rib fxs (1,9) RIGHT lung contusion LEFT radial/ulna fx LEFT sacral ala fx (non-op) LEFT superior and inferior pubic rami fxs (non-op) LEFT acetabulum fx (non-op) LEFT pelvic sidewall and presacral hematoma PMHx: Chronic neck and back pain, PTSD Procedures: 12/09: ORIF left distal radius intra-articular fracture 12/09: Closed reduction right condyle fracture and stabilization of tooth #10 along with the alveolus. Consults: Orthopedics. OMFS. Case management. Diet: Regular FULL LIQUID diet. Tolerating po diet. Ensure TID. Encourage good po intake with each meal. Pulmonary: Encourage good pulmonary toileting. IS at bedside and pt encouraged to use. Rationale for use explained to patient, and verbalized understanding. Chest x-ray today stable. Follow-up labs in the morning. PAIN Management: Roxicodone liquid 5-10 mg every 4 hours. Dilaudid 1 mg every 4 hours for breakthrough pain. Sleep: Benadryl liquid 25 mg HS PRN. Activity: OOB. PT and OT ordered. (NWB R wrist; WBAT BLE) GI prophylaxis: Protonix IV. Bowel regimen: Senna liquid BID. Lactulose. LBM: 0. Intensified with bisacodyl MS 1 dose today. DVT prophylaxis: Mechanical VTE with SCDs. Chemical management with Lovenox 30 BID SQ. DC Planning: Case management consulted for assistance with final discharge disposition. Patient will require rehabilitation, however [facility] not [facility]. Patient is agreeable to go to a SNF, however he does not have VA benefits for a SNF. Possibility of [facility] per suggestion of his discharge door operator ? Case management has been in contact with them as a possible option for discharge planning. Emotional support provided to patient at bedside and plan of care discussed. Discussed with RN at bedside. Patient is hemodynamically stable and being managed on the med/surg floor. The trauma team will round each day, and evaluate plan of care on a daily basis. Concussion Supportive care Serial neuro checks Close monitoring Chin lac (sutures) Lower lip through and through (sutures) Wash gently with soap and water. Pat dry Suture removal in 5-7 days RIGHT mandibular fx LEFT maxillary sinus and maxilla fx OMFS consulted and assisting in management and care 12/09: Closed reduction right condyle fracture and stabilization of tooth #10 along with the alveolus. Full liquid diet - Ensure TID Wire cutters at bedside Good oral care Clear for DC from OMFS standpoint with follow-up in one week RIGHT rib fxs (1,9) RIGHT lung contusion Supportive care Pain management Good pulmonary toileting IS, CDB Follow-up chest x-ray stable LEFT radial/ulna fx LEFT sacral ala fx (non-op) LEFT superior and inferior pubic rami fxs (non-op) LEFT acetabulum fx (non-op) LEFT pelvic sidewall and presacral hematoma Orthopedics consulted and assisting in management and care 12/09: ORIF left distal radius intra-articular fracture Pelvic fractures nonoperable at this time Pain management NWB R wrist WBAT BLE PT and OT ordered Encourage out of bed Monitor H&H Follow-up labs as needed. Will need rehabilitation placement Remarks seen and examined with COW TENDER pain control,dvt prophylaxis placement Problem Qualifiers (1) Facial fracture due to fall: Qualified Codes: S02.92XA - Unspecified fracture of facial bones, initial encounter for closed fracture; W19.XXXA - Unspecified fall, initial encounter (2) Fracture of left radius and ulna: Qualified Codes: S52.92XA - Unspecified fracture of left forearm, initial encounter for closed fracture; S52.202A - Unspecified fracture of shaft of left ulna, initial encounter for closed fracture (3) Pelvic fracture: (4) Right rib fracture: Qualified Codes: S22.41XA - Multiple fractures of ribs, right side, initial encounter for closed fracture (5) Fall from roof: Qualified Codes: W13.2XXA - Fall from, out of or through roof, initial encounter Zara Garcia Dec 11, 2016 13:09 Kassi Otoole MD Dec 11, 2016 14:21
[2016-12-11 15:53] VITALS: BP 135/78; PULSE 90; RESP 18; TEMP 99; O2SAT 97
[2016-12-11] MEDS: HYDROmorphone HCL PF 1 MG/ML VIAL IVP PRN ×2 (16:25→20:50)
[2016-12-11 19:55] VITALS: BP 140/71; PULSE 87; RESP 16; TEMP 98.3; O2SAT 97
[2016-12-11] MEDS: diphenhydrAMINE HCL ELIXIR 12.5 MG/5 ML CUP PO PRN (20:49)
[2016-12-12] MEDS: diphenhydrAMINE HCL ELIXIR 12.5 MG/5 ML CUP PO PRN (01:13)
[2016-12-12] MEDS: HYDROmorphone HCL PF 1 MG/ML VIAL IVP PRN ×5 (01:13→21:13)
[2016-12-12] MEDS: oxyCODONE HCL ORAL CONC 20 MG/ML SYRINGE PO PRN ×5 (03:56→23:22)
--- NOTE | 2016-12-12 07:05 | PD.ORT.PN ---
Subjective Subjective Remarks POD 3 s/p ORIF left distal radius s/p left rami and left sacral fxs doing well. pain controlled. resting comfortably. used platform walker yesterday and improving Objective Vitals Vital Signs Date Time Temp Pulse Resp B/P (MAP) Pulse Ox O2 Delivery O2 Flow Rate FiO2 12/11/16 19:55 98.3 87 16 140/71 (94) 97 12/11/16 16:55 18 12/11/16 16:32 18 12/11/16 15:53 99.0 90 18 135/78 (97) 97 12/11/16 11:45 98.4 82 18 115/74 (88) 97 12/11/16 08:00 97.7 80 18 103/71 (82) 99 I/O 12/11/16 12/11/16 12/11/16 12/12/16 12/12/16 12/12/16 07:00 15:00 23:00 07:00 15:00 23:00 Intake Total 1560 ml 1380 ml 1020 ml Output Total 1300 ml 1650 ml Balance 1560 ml 80 ml -630 ml Intake Oral 1560 ml 1380 ml 1020 ml Output Urine Total 1300 ml 1650 ml # Voids 8 # Bowel Movements 0 1 0 Result Diagram: 12/10/1652012/10/16520 Imaging Last 24 hours Impressions Wrist X-Ray 12/09/1646 Signed Impressions: Service Date/Time: Friday, December 09, 2016 00:43 - CONCLUSION: 1. Casting of left wrist with slight improvement in fracture alignment. Nestor Pierce MD Wrist X-Ray 12/08/162103 Signed Impressions: Service Date/Time: Thursday, December 08, 2016 22:55 - CONCLUSION: 1. Comminuted intra-articular fracture distal radius and left ulna styloid fracture with mild displacement. No dislocation. Nestor Pierce MD Thoracic Spine CT 12/08/162103 Signed Impressions: Service Date/Time: Thursday, December 08, 2016 23:24 - CONCLUSION: 1. No acute thoracic spine fracture. Incidental fracture of medial right first rib and probably medial right ninth rib. Exam degraded by some motion artifact. Nestor Pierce MD Maxillofacial CT 12/08/162103 Signed Impressions: Service Date/Time: Thursday, December 08, 2016 23:16 - CONCLUSION: 1. Displaced fracture through the right mandibular head and neck. 2. Nondisplaced fractures of the left maxillary sinus and anterior process of the maxilla. Nestor Pierce MD Lumbar Spine CT 12/08/162103 Signed Impressions: Service Date/Time: Thursday, December 08, 2016 23:24 - CONCLUSION: 1. No acute lumbar spine fracture. Left sacral ala fracture with mild displacement. Nestor Pierce MD Knee X-Ray 12/08/162103 Signed Impressions: Service Date/Time: Thursday, December 08, 2016 22:49 - CONCLUSION: No acute disease. Nestor Pierce MD Hip and Pelvis X-Ray 12/08/162103 Signed Impressions: Service Date/Time: Thursday, December 08, 2016 22:49 - CONCLUSION: 1. Fracture left superior pubic ramus and left pubic bone, relatively nondisplaced. Left hip appears intact. CT pending. Nestor Pierce MD Head CT 12/08/162103 Signed Impressions: Service Date/Time: Thursday, December 08, 2016 23:12 - CONCLUSION: 1. No acute intracranial abnormalities. Fracture of the right mandibular head and neck and left maxillary sinus. Nestor Pierce MD Hand X-Ray 12/08/162103 Signed Impressions: Service Date/Time: Thursday, December 08, 2016 22:56 - CONCLUSION: 1. Fracture of the left wrist. No left hand fracture identified. Nestor Pierce MD Chest X-Ray 12/08/162103 Signed Impressions: Service Date/Time: Thursday, December 08, 2016 22:53 - CONCLUSION: Normal examination. Nestor Pierce MD Chest CT 12/08/162103 Signed Impressions: Service Date/Time: Thursday, December 08, 2016 23:24 - CONCLUSION: 1. Nondisplaced fractures right first rib and ninth rib medially. No pneumothorax or effusion. Small right lung contusion. Nestor Pierce MD Cervical Spine CT 12/08/162103 Signed Impressions: Service Date/Time: Thursday, December 08, 2016 23:15 - CONCLUSION: 1. No acute cervical spine fracture. Nondisplaced right first rib fracture. Nestor Pierce MD Abdomen/Pelvis CT 12/08/162103 Signed Impressions: Service Date/Time: Thursday, December 08, 2016 23:24 - CONCLUSION: 1. There are nondisplaced fractures of the left pubic bone, superior and inferior pubic rami , anterior column left acetabulum and left sacral ala. Small left pelvic sidewall and presacral hematoma. 2. No solid visceral injury identified. Nestor Pierce MD Objective Remarks LUE: +sugar tong splint. intact. NVI. BLE: good motion of legs with minimal discomfort. nvi bilaterally Assessment & Plan Assessment and Plan 1) Left severely comminuted distal radius fracture s/p ORIF - POD 3 Maintain splint NWB ok to use platform walker with weight on elbow 2) Left inferior/superior pubic rami fractures and nondisplaced fracture of left sacrum Weightbearing as tolerated bilateral lower extremities -ortho cleared for discharge home -f/u with [facility] or [facility] in 2 weeks Ramon Henao Dec 12, 2016 07:05
[2016-12-12 07:32] VITALS: BP 118/65; PULSE 67; RESP 18; TEMP 98.5; O2SAT 95
[2016-12-12] MEDS ORDERED: WALKER WHEELS/F1 MIS (08:39)
[2016-12-12 08:52] LABS: HEMATOCRIT 26.9 % (39.0-51.0); MEAN CORPUSCULAR HEMOGLOBIN 30.8 PG (27.0-34.0); MEAN CORPUSCULAR HGB CONC 34.6 % (32.0-36.0); PLATELET COUNT 72 TH/MM3 (150-450); RED BLOOD COUNT 3.02 MIL/MM3 (4.50-5.90); RED CELL DISTRIBUTION WIDTH 12.7 % (11.6-17.2); WHITE BLOOD COUNT 7.1 TH/MM3 (4.0-11.0)
[2016-12-12 08:54] LABS: REVIEW FLAG FINAL
[2016-12-12] MEDS: SENNOSIDES SYRUP 8.8 MG/5 ML CUP PO SCH ×2 (09:00→21:17)
[2016-12-12] MEDS: LACTULOSE SYRUP 20 GM/30 ML CUP PO SCH (09:00)
[2016-12-12] MEDS: PANTOPRAZOLE SODIUM 40 MG VIAL IVP SCH (09:05)
[2016-12-12 09:14] LABS: BICARBONATE 31.8 MEQ/L (21.0-32.0); POTASSIUM 3.3 MEQ/L (3.5-5.1)
[2016-12-12] MEDS: ENOXAPARIN SODIUM 30 MG/0.3 ML SYRINGE SQ SCH ×2 (11:04→23:20)
--- NOTE | 2016-12-12 11:27 | HHI.PR ---
Subjective Subjective Notes PTD: 4 Pt states, "you just missed my mother - she had questions." Patient states he had a "rough night last night." He was painful, and stated that his "arm felt like it was moving and restless." Pt states, "my mother told me I had nightmares last night of falling." Objective Vitals/I&O Vital Signs Date Time Temp Pulse Resp B/P (MAP) Pulse Ox O2 Delivery O2 Flow Rate FiO2 12/12/16 10:05 18 12/12/16 07:32 98.5 67 118/65 (82) 95 12/09/16 18:45 Room Air 12/09/16 00:20 3.00 Labs Laboratory Tests Test 12/12/16 07:34 White Blood Count 7.1 Red Blood Count 3.02 Hemoglobin 9.3 Hematocrit 26.9 Mean Corpuscular Volume 89.0 Mean Corpuscular Hemoglobin 30.8 Mean Corpuscular Hemoglobin Concent 34.6 Red Cell Distribution Width 12.7 Platelet Count 72 Mean Platelet Volume 9.1 Blood Urea Nitrogen 8 Creatinine 0.78 Random Glucose 91 Calcium Level 8.5 Sodium Level 139 Potassium Level 3.3 Chloride Level 101 Carbon Dioxide Level 31.8 Anion Gap 6 Estimat Glomerular Filtration Rate 114 Radiology Chest X-Ray 12/11/16 0000 Signed Impressions: Service Date/Time: November 11:48 - CONCLUSION: No acute disease. Pedro Marsh MD Narrative Exam GENERAL: This is a 36-year-old male lying in bed. No distress. SKIN: Warm and dry. Abrasion to chin and lower lip - slight swelling. HEAD: Atraumatic. Normocephalic. EYES: PERRLA ENT: No nasal bleeding or discharge. Mucous membranes pink and moist. Jaw wired shut. Wire cutters at bedside. NECK: Trachea midline. No JVD. CARDIOVASCULAR: Regular rate and rhythm. RESPIRATORY: No accessory muscle use. Lungs are clear to auscultation. Breath sounds equal bilaterally. No distress or dyspnea. GASTROINTESTINAL: BS + x 4 quads. Abdomen soft, non-tender, nondistended. MUSCULOSKELETAL: Extremities without cyanosis, or edema. LEFT forearm in splint and wrapped in Lorenzo bandage. + peripheral pulses x 4 extremities. Warm with good capillary refill and sensation. MAEW. NEUROLOGICAL: Awake and alert. Normal speech and pattern. A/P Problem List: (1) Facial fracture due to fall ICD Codes: S02.92XA - Unspecified fracture of facial bones, initial encounter for closed fracture; W19.XXXA - Unspecified fall, initial encounter Status: Acute (2) Fracture of left radius and ulna ICD Codes: S52.92XA - Unspecified fracture of left forearm, initial encounter for closed fracture; S52.202A - Unspecified fracture of shaft of left ulna, initial encounter for closed fracture Status: Acute (3) Pelvic fracture ICD Codes: S32.9XXA - Fracture of unspecified parts of lumbosacral spine and pelvis, initial encounter for closed fracture Status: Acute (4) Right rib fracture ICD Codes: S22.31XA - Fracture of one rib, right side, initial encounter for closed fracture Status: Acute (5) Fall from roof ICD Codes: W13.2XXA - Fall from, out of or through roof, initial encounter Status: Acute Assessment and Plan [place]: This is a 36-year-old male who sustained a fall. He fell off a roof approximately 20-30 feet landing on his left side. No LOC. INJURIES: Concussion Chin lac (sutures) Lower lip through and through (sutures) RIGHT mandibular fx LEFT maxillary sinus and maxilla fx RIGHT rib fxs (1,9) RIGHT lung contusion LEFT radial/ulna fx LEFT sacral ala fx (non-op) LEFT superior and inferior pubic rami fxs (non-op) LEFT acetabulum fx (non-op) LEFT pelvic sidewall and presacral hematoma PMHx: Chronic neck and back pain, PTSD Procedures: 12/09: ORIF left distal radius intra-articular fracture 12/09: Closed reduction right condyle fracture and stabilization of tooth #10 along with the alveolus. Consults: Orthopedics. OMFS. Case management. Diet: Regular FULL LIQUID diet. Tolerating po diet. Ensure TID. Encourage good po intake with each meal. Pulmonary: Encourage good pulmonary toileting. IS at bedside and pt encouraged to use. Rationale for use explained to patient, and verbalized understanding. K=3.3. Potassium Eff 25 mEq x 1 dose given. PAIN Management: Roxicodone liquid 5-10 mg every 4 hours. Dilaudid 1 mg every 4 hours for breakthrough pain. Added IV Robaxin 1000 mg every 8 hours . Added Neurontin 250 mg TID. Sleep: Benadryl liquid 25 mg HS PRN. Trazadone 50 mg HS Activity: OOB. PT and OT ordered. (NWB R wrist; WBAT BLE) GI prophylaxis: Protonix IV. Bowel regimen: Senna liquid BID. Lactulose. LBM: 12/12. DVT prophylaxis: Mechanical VTE with SCDs. Chemical management with Lovenox 30 BID SQ. DC Planning: Case management consulted for assistance with final discharge disposition. Patient will require rehabilitation, however [facility]. Patient is agreeable to go to a SNF, however he does not have VA benefits for a SNF. 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 Case management has been in contact with them as a possible option for discharge planning. Emotional support provided to patient at bedside and plan of care discussed. Discussed with RN at bedside. Patient is hemodynamically stable and being managed on the med/surg floor. The trauma team will round each day, and evaluate plan of care on a daily basis. Concussion Supportive care Serial neuro checks Close monitoring Chin lac (sutures) Lower lip through and through (sutures) Wash gently with soap and water. Pat dry Suture removal in 5-7 days Monitor closely RIGHT mandibular fx LEFT maxillary sinus and maxilla fx OMFS consulted and assisting in management and care 12/09: Closed reduction right condyle fracture and stabilization of tooth #10 along with the alveolus. Full liquid diet - Ensure TID Wire cutters at bedside Good oral care Clear for DC from OMFS standpoint with follow-up in one week RIGHT rib fxs (1,9) RIGHT lung contusion Supportive care Pain management Good pulmonary toileting IS, CDB Follow-up chest x-ray stable LEFT radial/ulna fx LEFT sacral ala fx (non-op) LEFT superior and inferior pubic rami fxs (non-op) LEFT acetabulum fx (non-op) LEFT pelvic sidewall and presacral hematoma Orthopedics consulted and assisting in management and care 12/09: ORIF left distal radius intra-articular fracture Pelvic fractures nonoperable at this time Pain management - Add neurontin and robaxin. Pt remains painful. NWB R wrist WBAT BLE PT and OT ordered Encourage out of bed Monitor H&H Follow-up labs as needed. Will need rehabilitation placement Insomnia PTSD Patient states he had a nightmare last night He is having difficulty sleeping Added trazodone 50 mg HS Remarks seen and examined with the nurse practitioners, agree with assessment and plan, patient is complaining of increased pain at this fracture sites. I reviewed his pain medication will add Neurontin and muscle relaxant agents and trazodone for sleep Problem Qualifiers (1) Facial fracture due to fall: Qualified Codes: S02.92XA - Unspecified fracture of facial bones, initial encounter for closed fracture; W19.XXXA - Unspecified fall, initial encounter (2) Fracture of left radius and ulna: Qualified Codes: S52.92XA - Unspecified fracture of left forearm, initial encounter for closed fracture; S52.202A - Unspecified fracture of shaft of left ulna, initial encounter for closed fracture (3) Pelvic fracture: (4) Right rib fracture: Qualified Codes: S22.41XA - Multiple fractures of ribs, right side, initial encounter for closed fracture (5) Fall from roof: Qualified Codes: W13.2XXA - Fall from, out of or through roof, initial encounter Zara Garcia Dec 12, 2016 11:27 Kassi Otoole MD Dec 12, 2016 20:15
[2016-12-12] MEDS ORDERED: POTASSIUM CHLORIDE 20 MEQ CONTROLLED RELEASE TAB PO ONE (11:30)
[2016-12-12 11:41] VITALS: BP 121/73; PULSE 79; RESP 18; TEMP 98.4; O2SAT 99
--- NOTE | 2016-12-12 12:10 | PD.HHIRCNE ---
Patient History Record/History Review Reason for Referral: The patient is a 36 year old right handed male status post traumatic injury sustained after falling off a roof. 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 Head CT was normal. Presently, he is complaining of nightmares related to his fall. He is is referred for baseline neurobehavioral status examination per trauma protocol to assess cognitive, behavioral and emotional aspects of the injury and to provide treatment recommendations. Neuropsych Precautions: To be determined. Past Surgical/Medical History Major surgery in last 100 days: Unknown Hx Orthopedic Surgery: Yes (l knee) Hx of Neuro Prob: Yes Hx Seizures: Yes Hx of Musculoskeletal Pro: Yes (chronic neck and back pain) Hx of Cardiovascular Prob: No Hx of Respiratory Problem: No Hx Heartburn: Yes Hx Gastroesophageal Reflux: Yes Hx of Problems: No Hx of Eye Probl: No Hx Psychiatric Problems: Yes (PTSD) Hx of MDRO: No Hx of MRSA: No Hx of VRE: No Hx of CDIFF: No Hx of Tuberculosis: No Hx of Body/Medical Devices: No Blood Transfusion History Will receive Blood /Blood prod: Yes Hx Blood Transfusions: No Medication Active Medications Diphenhydramine HCl (Benadryl Liq) 25 mg HS PRN PO Last administered on t 01:13; Admin Dose 25 MG; Start 12/11/16 at 21:00 Gabapentin (Neurontin) 300 mg TID PO; Start 12/12/16 at 13:00; Status UNV Methocarbamol (Robaxin) 500 mg Q8HR PO; Start 12/12/16 at 14:00; Status UNV Potassium Chloride (KCl) 20 meq ONCE ONCE PO; Start 12/12/16 at 11:30; Stop at 11:31; Status UNV Trazodone HCl (Desyrel) 50 mg HS PO; Start 12/12/16 at 21:00; Status UNV Mental Status Assessment Orientation: oriented to Self, oriented to Place, oriented to Time, oriented to Situation Mental Status: WFL: Thought processing, Language/Interactions, Attention, Learning/Memory, Problem-Solving, Visuospatial/Construction, Self-regulation, Other Observation The patient is alert and oriented to person, place, time and circumstances surrounding the reason for hospitalization. In terms of attention skills, the patient was able to remain on task and remember basic and complex instructions. In terms of memory functioning, the patient was able to remember information presented across time and has adequate carryover. The patient initiated spontaneous conversation. Speech was characterized by adequate prosody, grammar , articulation, volume and rate. Basic naming skills were intact. Language repetition skills were intact. The patients comprehensions for basic one- and two-stage commands were intact. Basic verbal abstraction and problem-solving skills were intact. The patient appears to posses adequate insight and awareness into their situation and within the limits of this brief evaluation, adequate judgment. Impression Baseline neurocognitive state. Adjustment/Coping Assessment Adjustment/Coping: Moderate: Anxiety Observation The patients thought content was free from suicidal, homicidal or paranoid ideation, and the patients thought processes were logical and goal-directed. The patients mood was anxious, and his affect was stable and appropriate. LTG Status: Deferred STG Status: Deferred Team Members: Neuropsychologist Behavior Assessment Agitation: None Treatment Engagement: Average Observation Behaviorally, the patient demonstrated no signs of agitation, impulsivity or disinhibition. There was no remarkable evidence of a formal thought disorder or psychosis. LTG - Status: Deferred STG Status: Deferred Team Members: Neuropsychologist Diagnosis/Discharge Plan Impression 36 year old male s/p fall from roof with traumatic injuries. From a neurocognitive standpoint, he is at baseline. Diagnosis: (1) Acute stress disorder Maximizing acute care outcome It is recommended that the patient be monitored for emergent behavioral impulsivity as the medical condition evolves. This patients neuropathological challenges may limit their rehabilitation potential going forward, and these challenges will require specialized therapeutic skills to maximize outcome. Discharge Planning Anticipated Problems Ongoing areas of concern will include anxiety concerning the traumatic event. He will be followed from a neuropsychological standpoint within the context of trauma team. Treatment Plan This clinician will continue to follow with you throughout the course of this patients acute care treatment, and I will be available to meet with the patient s family/support system to facilitate their understanding and the ongoing care of their family member. The goals of neuropsychological intervention shall be both educational and supportive to the family/support system as is deemed clinically appropriate. Discharge Needs To be determined. Thank you Thank you for the opportunity to assist in this patients care. Julian Orozco, Ph.D., ABPP Board Certified in Clinical Neuropsychology [place] [employer] [place] Licensed Psychologist #[id number] Julian Orozco PhD Dec 12, 2016 12:10 pm
[2016-12-12] MEDS ORDERED: POTASSIUM BICARBONATE 25 MEQ EFFERVESCENT TAB PO ONE (12:30)
[2016-12-12] MEDS ORDERED: GABAPENTIN 300 MG CAP PO SCH (13:00)
[2016-12-12] MEDS ORDERED: METHOCARBAMOL 500 MG TAB PO SCH (14:00)
[2016-12-12 16:00] VITALS: BP 121/93; PULSE 88; RESP 18; TEMP 98; O2SAT 100
[2016-12-12] MEDS: GABAPENTIN 250 MG/5 ML UDC NG SCH (18:30)
[2016-12-12 19:05] VITALS: BP 126/89; PULSE 82; RESP 18; TEMP 97.6; O2SAT 99
[2016-12-12] MEDS: traZODone HCL 50 MG TAB PO SCH (21:17)
[2016-12-12] MEDS: METHOCARBAMOL INJ 1,000 MG in SODIUM CHLOR 0.9% 250 ML INJ 240 ML IV SCH (21:24)
[2016-12-13] VITALS: BP 107/66; PULSE 90; RESP 16; TEMP 97.7; O2SAT 95
[2016-12-13 04:00] VITALS: BP 105/70; PULSE 82; RESP 16; TEMP 97.7; O2SAT 95
[2016-12-13] MEDS: HYDROmorphone HCL PF 1 MG/ML VIAL IVP PRN ×5 (04:51→22:11)
[2016-12-13] MEDS: METHOCARBAMOL INJ 1,000 MG in SODIUM CHLOR 0.9% 250 ML INJ 240 ML IV SCH ×3 (06:18→22:27)
[2016-12-13] MEDS: oxyCODONE HCL ORAL CONC 20 MG/ML SYRINGE PO PRN ×4 (06:20→19:58)
[2016-12-13] MEDS: LACTULOSE SYRUP 20 GM/30 ML CUP PO SCH (08:45)
[2016-12-13] MEDS: GABAPENTIN 250 MG/5 ML UDC NG SCH ×3 (08:45→17:16)
[2016-12-13] MEDS: SENNOSIDES SYRUP 8.8 MG/5 ML CUP PO SCH ×2 (08:45→21:00)
[2016-12-13] MEDS: PANTOPRAZOLE SODIUM 40 MG VIAL IVP SCH (08:46)
[2016-12-13 10:00] VITALS: BP 129/76; PULSE 81; RESP 20; TEMP 96.6; O2SAT 91
--- NOTE | 2016-12-13 11:52 | HHI.PR ---
Subjective Subjective Notes PTD: 5 Patient sitting on the side of the bed. Patient asks, "is it supposed to be hard to pee?" Mother at bedside. Asking numerous questions about pelvis fxs. Mother states that her case has been accepted by [facility], and they are trying to get the patient admitted at [facility]. Objective Vitals/I&O Vital Signs Date Time Temp Pulse Resp B/P (MAP) Pulse Ox O2 Delivery O2 Flow Rate FiO2 12/13/16 10:00 96.6 81 20 129/76 (93) 91 12/09/16 18:45 Room Air Labs Laboratory Tests Test 12/08/16 21:00 12/10/16 05:21 12/12/16 07:34 Bedside Hemoglobin 13.3 G/DL Bedside Hematocrit 39.0 % Prothrombin Time 11.2 SEC Prothromb Time International Ratio 1.0 RATIO Activated Partial Thromboplast Time 22.1 SEC Fibrinogen 120 mg/dL Bedside Sodium 142 MMOL/L Bedside Potassium 3.6 MMOL/L Bedside Chloride 104 MMOL/L Bedside Blood Urea Nitrogen 11 MG/DL Bedside Creatinine 1.1 MG/DL Bedside Glucose 135 MG/DL Ethyl Alcohol Level LESS THAN 3 MG/DL Neutrophils (%) (Auto) 90.0 % Lymphocytes (%) (Auto) 4.9 % Monocytes (%) (Auto) 5.0 % Eosinophils (%) (Auto) 0.0 % Basophils (%) (Auto) 0.1 % Neutrophils # (Auto) 11.9 TH/MM3 Lymphocytes # (Auto) 0.6 TH/MM3 Monocytes # (Auto) 0.7 TH/MM3 Eosinophils # (Auto) 0.0 TH/MM3 Basophils # (Auto) 0.0 TH/MM3 CBC Comment DIFF FINAL Differential Comment Blood Urea Nitrogen 9 MG/DL 8 MG/DL Creatinine 0.88 MG/DL 0.78 MG/DL Random Glucose 130 MG/DL 91 MG/DL Total Protein 6.6 GM/DL Albumin 3.5 GM/DL Calcium Level 8.3 MG/DL 8.5 MG/DL Alkaline Phosphatase 32 U/L Aspartate Amino Transf (AST/SGOT) 45 U/L Alanine Aminotransferase (ALT/SGPT) 40 U/L Total Bilirubin 1.6 MG/DL Sodium Level 137 MEQ/L 139 MEQ/L Potassium Level 4.0 MEQ/L 3.3 MEQ/L Chloride Level 104 MEQ/L 101 MEQ/L Carbon Dioxide Level 25.9 MEQ/L 31.8 MEQ/L White Blood Count 7.1 TH/MM3 Red Blood Count 3.02 MIL/MM3 Hemoglobin 9.3 GM/DL Hematocrit 26.9 % Mean Corpuscular Volume 89.0 FL Mean Corpuscular Hemoglobin 30.8 PG Mean Corpuscular Hemoglobin Concent 34.6 % Red Cell Distribution Width 12.7 % Platelet Count 72 TH/MM3 Mean Platelet Volume 9.1 FL Anion Gap 6 MEQ/L Estimat Glomerular Filtration Rate 114 ML/MIN Narrative Exam GENERAL: This is a 36-year-old male lying in bed. No distress. SKIN: Warm and dry. Abrasion to chin and lower lip - slight swelling. HEAD: Atraumatic. Normocephalic. EYES: PERRLA ENT: No nasal bleeding or discharge. Mucous membranes pink and moist. Jaw wired shut. Wire cutters at bedside. NECK: Trachea midline. No JVD. CARDIOVASCULAR: Regular rate and rhythm. RESPIRATORY: No accessory muscle use. Lungs are clear to auscultation. Breath sounds equal bilaterally. No distress or dyspnea. GASTROINTESTINAL: BS + x 4 quads. Abdomen soft, non-tender, nondistended. MUSCULOSKELETAL: Extremities without cyanosis, or edema. LEFT forearm in splint and wrapped in Lorenzo bandage. + peripheral pulses x 4 extremities. Warm with good capillary refill and sensation. MAEW. NEUROLOGICAL: Awake and alert. Normal speech and pattern. A/P Problem List: (1) Facial fracture due to fall ICD Codes: S02.92XA - Unspecified fracture of facial bones, initial encounter for closed fracture; W19.XXXA - Unspecified fall, initial encounter Status: Acute (2) Fracture of left radius and ulna ICD Codes: S52.92XA - Unspecified fracture of left forearm, initial encounter for closed fracture; S52.202A - Unspecified fracture of shaft of left ulna, initial encounter for closed fracture Status: Acute (3) Pelvic fracture ICD Codes: S32.9XXA - Fracture of unspecified parts of lumbosacral spine and pelvis, initial encounter for closed fracture Status: Acute (4) Right rib fracture ICD Codes: S22.31XA - Fracture of one rib, right side, initial encounter for closed fracture Status: Acute (5) Fall from roof ICD Codes: W13.2XXA - Fall from, out of or through roof, initial encounter Status: Acute Assessment and Plan [place]: This is a 36-year-old male who sustained a fall. He fell off a roof approximately 20-30 feet landing on his left side. No LOC. INJURIES: Concussion Chin lac (sutures) Lower lip through and through (sutures) RIGHT mandibular fx LEFT maxillary sinus and maxilla fx RIGHT rib fxs (1,9) RIGHT lung contusion LEFT radial/ulna fx LEFT sacral ala fx (non-op) LEFT superior and inferior pubic rami fxs (non-op) LEFT acetabulum fx (non-op) LEFT pelvic sidewall and presacral hematoma PMHx: Chronic neck and back pain, PTSD Procedures: 12/09: ORIF left distal radius intra-articular fracture 12/09: Closed reduction right condyle fracture and stabilization of tooth #10 along with the alveolus. Consults: Orthopedics. OMFS. Case management. Diet: Regular FULL LIQUID diet. Tolerating po diet. Ensure TID. Encourage good po intake with each meal. Pulmonary: Encourage good pulmonary toileting. IS at bedside and pt encouraged to use. Rationale for use explained to patient, and verbalized understanding. PAIN Management: Roxicodone liquid 5-10 mg every 4 hours. Dilaudid 1 mg every 4 hours for breakthrough pain. IV Robaxin 1000 mg every 8 hours . Neurontin 250 mg TID. Sleep: Benadryl liquid 25 mg HS PRN. Trazadone 50 mg HS Activity: OOB. PT and OT ordered. (NWB R wrist; WBAT BLE) GI prophylaxis: Protonix IV. Bowel regimen: Senna liquid BID. Lactulose. LBM: 12/12. DVT prophylaxis: Mechanical VTE with SCDs. Chemical management with Lovenox 30 BID SQ. DC Planning: Case management consulted for assistance with final discharge disposition. Patient will require rehabilitation, however [facility] [facility]. Patient is agreeable to go to a SNF, however he does not have VA benefits for a SNF. Possibility of [facility] rehab per suggestion of his smoking tobacco packer hand. Mother states that she has a meeting with her smoking tobacco packer hand on Thursday to arrange rehab at [facility]. Mother has been in contact with "Bianca" at [facility]. Case management has been in contact with them as a possible option for discharge planning. Emotional support provided to patient at bedside and plan of care discussed. Discussed with RN at bedside. Patient is hemodynamically stable and being managed on the med/surg floor. The trauma team will round each day, and evaluate plan of care on a daily basis. Concussion Supportive care Serial neuro checks Close monitoring Chin lac (sutures) Lower lip through and through (sutures) Wash gently with soap and water. Pat dry Suture removal in 5-7 days Monitor closely RIGHT mandibular fx LEFT maxillary sinus and maxilla fx OMFS consulted and assisting in management and care 12/09: Closed reduction right condyle fracture and stabilization of tooth #10 along with the alveolus. Full liquid diet - Ensure TID Wire cutters at bedside Good oral care Clear for DC from OMFS standpoint with follow-up in one week RIGHT rib fxs (1,9) RIGHT lung contusion Supportive care Pain management Good pulmonary toileting IS, CDB Follow-up chest x-ray stable LEFT radial/ulna fx LEFT sacral ala fx (non-op) LEFT superior and inferior pubic rami fxs (non-op) LEFT acetabulum fx (non-op) LEFT pelvic sidewall and presacral hematoma Orthopedics consulted and assisting in management and care 12/09: ORIF left distal radius intra-articular fracture Pelvic fractures nonoperable at this time Pain management - Roxicodone, Dilaudid, Neurontin, Robaxin. NWB R wrist WBAT BLE PT and OT ordered Encourage out of bed Monitor H&H Follow-up labs as needed. Will need rehabilitation placement Insomnia PTSD Patient states he had a nightmare last night He is having difficulty sleeping Benadryl 25 mg HS. Trazodone 50 mg HS Problem Qualifiers (1) Facial fracture due to fall: Qualified Codes: S02.92XA - Unspecified fracture of facial bones, initial encounter for closed fracture; W19.XXXA - Unspecified fall, initial encounter (2) Fracture of left radius and ulna: Qualified Codes: S52.92XA - Unspecified fracture of left forearm, initial encounter for closed fracture; S52.202A - Unspecified fracture of shaft of left ulna, initial encounter for closed fracture (3) Pelvic fracture: (4) Right rib fracture: Qualified Codes: S22.41XA - Multiple fractures of ribs, right side, initial encounter for closed fracture (5) Fall from roof: Qualified Codes: W13.2XXA - Fall from, out of or through roof, initial encounter Zara Garcia Dec 13, 2016 11:52
[2016-12-13] MEDS: ENOXAPARIN SODIUM 30 MG/0.3 ML SYRINGE SQ SCH (12:53)
[2016-12-13 13:22] VITALS: BP_SYST 129; BP_SYST 141; BP_DIAS 71; BP_DIAS 92; PULSE 94; RESP 20; RESP 24; TEMP 96.9; O2SAT 95; O2SAT 98
[2016-12-13 16:30] VITALS: BP_SYST 133; BP_SYST 143; BP_DIAS 80; BP_DIAS 83; PULSE 76; RESP 18; RESP 20; TEMP 97.1; O2SAT 94; O2SAT 99
[2016-12-13 20:00] VITALS: BP 142/85; PULSE 83; RESP 18; TEMP 96.8; O2SAT 100
[2016-12-13] MEDS: traZODone HCL 50 MG TAB PO SCH (22:27)
[2016-12-14] VITALS (7 sets, daily range): BP systolic 110–137; BP diastolic 67–80; PULSE 71–85; RESP 17–18; TEMP 96.5–97.5; O2SAT 96–100
[2016-12-14] MEDS: oxyCODONE HCL ORAL CONC 20 MG/ML SYRINGE PO PRN ×6 (00:23→22:25)
[2016-12-14] MEDS: ENOXAPARIN SODIUM 30 MG/0.3 ML SYRINGE SQ SCH ×3 (00:25→23:41)
[2016-12-14] MEDS: HYDROmorphone HCL PF 1 MG/ML VIAL IVP PRN ×6 (02:33→23:41)
[2016-12-14] MEDS: METHOCARBAMOL INJ 1,000 MG in SODIUM CHLOR 0.9% 250 ML INJ 240 ML IV SCH ×3 (06:47→22:24)
[2016-12-14] MEDS: LACTULOSE SYRUP 20 GM/30 ML CUP PO SCH (09:00)
[2016-12-14] MEDS: SENNOSIDES SYRUP 8.8 MG/5 ML CUP PO SCH ×2 (09:00→21:11)
[2016-12-14] MEDS: GABAPENTIN 250 MG/5 ML UDC NG SCH ×3 (09:19→18:09)
[2016-12-14] MEDS: PANTOPRAZOLE SODIUM 40 MG VIAL IVP SCH (09:19)
--- NOTE | 2016-12-14 10:36 | HHI.PR ---
Subjective Subjective Notes PTD: 6 Pt OOB in a wheelchair. Mother at bedside. Pt c/o increased pain to LEFT forearm. He complains that the staff is not bringing him his pain medications on time. Reminded pt that pain medications are "as needed" and he must call for them as they are not brought automatically. Mother additionally complaints that she is not brought drinks and supplies "quick enough." Mother does much of the talking during the visit, which makes the patient frustrated and the patient frequently tells his mother, "hold on a minute, let me talk here." Mother has a meeting with her truck driver helper and branch service representative for [facility] on Thursday. Discussed with mother that the patient is progressing well and PT and OT are recommending that the pt be discharged home with home health care. Mother states that "he has no where to go." Mother states that he cannot go to his own house, because he lives with his cousin, and he "can't go back there." Mother is not willing to take her son home with her. 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." Objective Vitals/I&O Vital Signs Date Time Temp Pulse Resp B/P (MAP) Pulse Ox O2 Delivery O2 Flow Rate FiO2 12/14/16 07:09 96.9 71 17 116/72 (87) 98 Labs Laboratory Tests Test 12/08/16 21:00 12/10/16 05:21 12/12/16 07:34 Bedside Hemoglobin 13.3 G/DL Bedside Hematocrit 39.0 % Prothrombin Time 11.2 SEC Prothromb Time International Ratio 1.0 RATIO Activated Partial Thromboplast Time 22.1 SEC Fibrinogen 120 mg/dL Bedside Sodium 142 MMOL/L Bedside Potassium 3.6 MMOL/L Bedside Chloride 104 MMOL/L Bedside Blood Urea Nitrogen 11 MG/DL Bedside Creatinine 1.1 MG/DL Bedside Glucose 135 MG/DL Ethyl Alcohol Level LESS THAN 3 MG/DL Neutrophils (%) (Auto) 90.0 % Lymphocytes (%) (Auto) 4.9 % Monocytes (%) (Auto) 5.0 % Eosinophils (%) (Auto) 0.0 % Basophils (%) (Auto) 0.1 % Neutrophils # (Auto) 11.9 TH/MM3 Lymphocytes # (Auto) 0.6 TH/MM3 Monocytes # (Auto) 0.7 TH/MM3 Eosinophils # (Auto) 0.0 TH/MM3 Basophils # (Auto) 0.0 TH/MM3 CBC Comment DIFF FINAL Differential Comment Blood Urea Nitrogen 9 MG/DL 8 MG/DL Creatinine 0.88 MG/DL 0.78 MG/DL Random Glucose 130 MG/DL 91 MG/DL Total Protein 6.6 GM/DL Albumin 3.5 GM/DL Calcium Level 8.3 MG/DL 8.5 MG/DL Alkaline Phosphatase 32 U/L Aspartate Amino Transf (AST/SGOT) 45 U/L Alanine Aminotransferase (ALT/SGPT) 40 U/L Total Bilirubin 1.6 MG/DL Sodium Level 137 MEQ/L 139 MEQ/L Potassium Level 4.0 MEQ/L 3.3 MEQ/L Chloride Level 104 MEQ/L 101 MEQ/L Carbon Dioxide Level 25.9 MEQ/L 31.8 MEQ/L White Blood Count 7.1 TH/MM3 Red Blood Count 3.02 MIL/MM3 Hemoglobin 9.3 GM/DL Hematocrit 26.9 % Mean Corpuscular Volume 89.0 FL Mean Corpuscular Hemoglobin 30.8 PG Mean Corpuscular Hemoglobin Concent 34.6 % Red Cell Distribution Width 12.7 % Platelet Count 72 TH/MM3 Mean Platelet Volume 9.1 FL Anion Gap 6 MEQ/L Estimat Glomerular Filtration Rate 114 ML/MIN Narrative Exam GENERAL: This is a 36-year-old male OOB in a wheelchair. No distress. SKIN: Warm and dry. Abrasion to chin and lower lip - slight lower lip swelling. HEAD: Atraumatic. Normocephalic. EYES: PERRLA ENT: No nasal bleeding or discharge. Mucous membranes pink and moist. Jaw wired shut. Wire cutters at bedside. NECK: Trachea midline. No JVD. CARDIOVASCULAR: Regular rate and rhythm. RESPIRATORY: No accessory muscle use. Lungs are clear to auscultation. Breath sounds equal bilaterally. No distress or dyspnea. GASTROINTESTINAL: BS + x 4 quads. Abdomen soft, non-tender, nondistended. MUSCULOSKELETAL: Extremities without cyanosis, or edema. LEFT forearm in splint and wrapped in Lorenzo bandage. + peripheral pulses x 4 extremities. Warm with good capillary refill and sensation. MAEW. NEUROLOGICAL: Awake and alert. Normal speech and pattern. A/P Problem List: (1) Facial fracture due to fall ICD Codes: S02.92XA - Unspecified fracture of facial bones, initial encounter for closed fracture; W19.XXXA - Unspecified fall, initial encounter Status: Acute (2) Fracture of left radius and ulna ICD Codes: S52.92XA - Unspecified fracture of left forearm, initial encounter for closed fracture; S52.202A - Unspecified fracture of shaft of left ulna, initial encounter for closed fracture Status: Acute (3) Pelvic fracture ICD Codes: S32.9XXA - Fracture of unspecified parts of lumbosacral spine and pelvis, initial encounter for closed fracture Status: Acute (4) Right rib fracture ICD Codes: S22.31XA - Fracture of one rib, right side, initial encounter for closed fracture Status: Acute (5) Fall from roof ICD Codes: W13.2XXA - Fall from, out of or through roof, initial encounter Status: Acute Assessment and Plan [place]: This is a 36-year-old male who sustained a fall. He fell off a roof approximately 20-30 feet landing on his left side. No LOC. INJURIES: Concussion Chin lac (sutures) Lower lip through and through (sutures) RIGHT mandibular fx LEFT maxillary sinus and maxilla fx RIGHT rib fxs (1,9) RIGHT lung contusion LEFT radial/ulna fx LEFT sacral ala fx (non-op) LEFT superior and inferior pubic rami fxs (non-op) LEFT acetabulum fx (non-op) LEFT pelvic sidewall and presacral hematoma PMHx: Chronic neck and back pain, PTSD Procedures: 12/09: ORIF left distal radius intra-articular fracture 12/09: Closed reduction right condyle fracture and stabilization of tooth #10 along with the alveolus. Consults: Orthopedics. OMFS. Case management. Diet: Regular FULL LIQUID diet. Tolerating po diet. Ensure TID. Encourage good po intake with each meal. Pulmonary: Encourage good pulmonary toileting. IS at bedside and pt encouraged to use. Rationale for use explained to patient, and verbalized understanding. PAIN Management: Roxicodone liquid 5-10 mg every 4 hours. Dilaudid 1 mg every 4 hours for breakthrough pain. IV Robaxin 1000 mg every 8 hours . Increased Neurontin to 500 mg TID. Sleep: Benadryl liquid 25 mg HS PRN. Trazadone 50 mg HS Activity: OOB. PT and OT ordered. (NWB R wrist; WBAT BLE) GI prophylaxis: Protonix IV. Bowel regimen: Senna liquid BID. Lactulose. LBM: 12/14. DVT prophylaxis: Mechanical VTE with SCDs. Chemical management with Lovenox 30 BID SQ. DC Planning: Case management consulted for assistance with final discharge disposition. PT and OT have recommended DC home with home bryce care. Mother states that the patient cannot go back to his house, and mother states she cannot care for him at her house. Possibility of [facility] rehab per suggestion of his truck driver helper. Mother states that she has a meeting with her truck driver helper on Thursday to arrange rehab at [facility]. Mother has been in contact with "Bianca " at [facility]. Case management has been in contact with them as a possible option for discharge planning. Discussed with mother at length that if [facility] rehab does not become a possibility after tomorrow's meeting, she must assist in helping find a final place for pt to convalesce after his injuries. Emotional support provided to patient at bedside and plan of care discussed. Discussed with RN at bedside. Patient is hemodynamically stable and being managed on the med/surg floor. The trauma team will round each day, and evaluate plan of care on a daily basis. Concussion Supportive care Serial neuro checks Close monitoring Chin lac (sutures) Lower lip through and through (sutures) Wash gently with soap and water. Pat dry Suture removal in 5-7 days Monitor closely RIGHT mandibular fx LEFT maxillary sinus and maxilla fx OMFS consulted and assisting in management and care 12/09: Closed reduction right condyle fracture and stabilization of tooth #10 along with the alveolus. Full liquid diet - Ensure TID Wire cutters at bedside Good oral care Clear for DC from OMFS standpoint with follow-up in one week RIGHT rib fxs (1,9) RIGHT lung contusion Supportive care Pain management Good pulmonary toileting IS, CDB Follow-up chest x-ray stable LEFT radial/ulna fx LEFT sacral ala fx (non-op) LEFT superior and inferior pubic rami fxs (non-op) LEFT acetabulum fx (non-op) LEFT pelvic sidewall and presacral hematoma Orthopedics consulted and assisting in management and care 12/09: ORIF left distal radius intra-articular fracture Pelvic fractures nonoperable at this time Pain management - Roxicodone, Dilaudid, Neurontin, Robaxin. NWB R wrist WBAT BLE PT and OT ordered Encourage out of bed Monitor H&H Follow-up labs as needed. Will need rehabilitation placement Insomnia PTSD Patient states he had a nightmare He is having difficulty sleeping Benadryl 25 mg HS. Trazodone 50 mg HS Problem Qualifiers (1) Facial fracture due to fall: Qualified Codes: S02.92XA - Unspecified fracture of facial bones, initial encounter for closed fracture; W19.XXXA - Unspecified fall, initial encounter (2) Fracture of left radius and ulna: Qualified Codes: S52.92XA - Unspecified fracture of left forearm, initial encounter for closed fracture; S52.202A - Unspecified fracture of shaft of left ulna, initial encounter for closed fracture (3) Pelvic fracture: (4) Right rib fracture: Qualified Codes: S22.41XA - Multiple fractures of ribs, right side, initial encounter for closed fracture (5) Fall from roof: Qualified Codes: W13.2XXA - Fall from, out of or through roof, initial encounter Zara Garcia Dec 14, 2016 10:36
[2016-12-14] MEDS: traZODone HCL 50 MG TAB PO SCH (21:11)
[2016-12-15] MEDS: oxyCODONE HCL ORAL CONC 20 MG/ML SYRINGE PO PRN ×5 (02:44→22:09)
[2016-12-15] MEDS: METHOCARBAMOL INJ 1,000 MG in SODIUM CHLOR 0.9% 250 ML INJ 240 ML IV SCH ×2 (05:49→16:02)
[2016-12-15] MEDS: HYDROmorphone HCL PF 1 MG/ML VIAL IVP PRN ×3 (05:51→16:01)
--- NOTE | 2016-12-15 06:44 | PD.ORT.PN ---
Subjective Subjective Remarks POD 6 s/p ORIF left distal radius s/p left rami and left sacral fxs doing well. pain controlled. resting comfortably. used platform walker yesterday and improving Objective Vitals Vital Signs Date Time Temp Pulse Resp B/P (MAP) Pulse Ox O2 Delivery O2 Flow Rate FiO2 12/14/16 23:35 96.5 79 17 137/76 (96) 97 12/14/16 19:39 96.6 85 17 122/76 (91) 96 12/14/16 16:00 97.5 79 17 130/80 (97) 100 12/14/16 12:00 96.6 75 17 127/67 (87) 100 12/14/16 07:09 96.9 71 17 116/72 (87) 98 I/O 12/14/16 12/14/16 12/14/16 12/15/16 12/15/16 12/15/16 07:00 15:00 23:00 07:00 15:00 23:00 Intake Total 1250 ml 960 ml 730 ml Balance 1250 ml 960 ml 730 ml Intake Oral 1000 ml 960 ml 480 ml IV Total 250 ml 250 ml # Voids 2 5 2 # Bowel Movements 0 2 0 Result Diagram: 12/12/16 0734 12/12/16 0734 Imaging Last 24 hours Impressions Wrist X-Ray 12/09/1646 Signed Impressions: Service Date/Time: Friday, December 09, 2016 00:43 - CONCLUSION: 1. Casting of left wrist with slight improvement in fracture alignment. Nestor Pierce MD Wrist X-Ray 12/08/162103 Signed Impressions: Service Date/Time: Thursday, December 08, 2016 22:55 - CONCLUSION: 1. Comminuted intra-articular fracture distal radius and left ulna styloid fracture with mild displacement. No dislocation. Nestor Pierce MD Thoracic Spine CT 12/08/162103 Signed Impressions: Service Date/Time: Thursday, December 08, 2016 23:24 - CONCLUSION: 1. No acute thoracic spine fracture. Incidental fracture of medial right first rib and probably medial right ninth rib. Exam degraded by some motion artifact. Nestor Pierce MD Maxillofacial CT 12/08/162103 Signed Impressions: Service Date/Time: Thursday, December 08, 2016 23:16 - CONCLUSION: 1. Displaced fracture through the right mandibular head and neck. 2. Nondisplaced fractures of the left maxillary sinus and anterior process of the maxilla. Nestor Pierce MD Lumbar Spine CT 12/08/162103 Signed Impressions: Service Date/Time: Thursday, December 08, 2016 23:24 - CONCLUSION: 1. No acute lumbar spine fracture. Left sacral ala fracture with mild displacement. Nestor Pierce MD Knee X-Ray 12/08/162103 Signed Impressions: Service Date/Time: Thursday, December 08, 2016 22:49 - CONCLUSION: No acute disease. Nestor Pierce MD Hip and Pelvis X-Ray 12/08/162103 Signed Impressions: Service Date/Time: Thursday, December 08, 2016 22:49 - CONCLUSION: 1. Fracture left superior pubic ramus and left pubic bone, relatively nondisplaced. Left hip appears intact. CT pending. Nestor Pierce MD Head CT 12/08/162103 Signed Impressions: Service Date/Time: Thursday, December 08, 2016 23:12 - CONCLUSION: 1. No acute intracranial abnormalities. Fracture of the right mandibular head and neck and left maxillary sinus. Nestor Pierce MD Hand X-Ray 12/08/162103 Signed Impressions: Service Date/Time: Thursday, December 08, 2016 22:56 - CONCLUSION: 1. Fracture of the left wrist. No left hand fracture identified. Nestor Pierce MD Chest X-Ray 12/08/162103 Signed Impressions: Service Date/Time: Thursday, December 08, 2016 22:53 - CONCLUSION: Normal examination. Nestor Pierce MD Chest CT 12/08/162103 Signed Impressions: Service Date/Time: Thursday, December 08, 2016 23:24 - CONCLUSION: 1. Nondisplaced fractures right first rib and ninth rib medially. No pneumothorax or effusion. Small right lung contusion. Nestor Pierce MD Cervical Spine CT 12/08/162103 Signed Impressions: Service Date/Time: Thursday, December 08, 2016 23:15 - CONCLUSION: 1. No acute cervical spine fracture. Nondisplaced right first rib fracture. Nestor Pierce MD Abdomen/Pelvis CT 12/08/162103 Signed Impressions: Service Date/Time: Thursday, December 08, 2016 23:24 - CONCLUSION: 1. There are nondisplaced fractures of the left pubic bone, superior and inferior pubic rami , anterior column left acetabulum and left sacral ala. Small left pelvic sidewall and presacral hematoma. 2. No solid visceral injury identified. Nestor Pierce MD Objective Remarks LUE: +sugar tong splint. intact. NVI. BLE: good motion of legs with minimal discomfort. nvi bilaterally Assessment & Plan Assessment and Plan 1) Left severely comminuted distal radius fracture s/p ORIF - POD 6 Maintain splint NWB ok to use platform walker with weight on elbow 2) Left inferior/superior pubic rami fractures and nondisplaced fracture of left sacrum Weightbearing as tolerated bilateral lower extremities -ortho cleared for discharge home -f/u with [facility] or [facility] in 2 weeks Ramon Henao Dec 15, 2016 06:44
[2016-12-15 08:50] VITALS: BP 136/17; PULSE 78; TEMP 95.8; O2SAT 100
[2016-12-15] MEDS: PANTOPRAZOLE SODIUM 40 MG VIAL IVP SCH (08:51)
[2016-12-15] MEDS: LACTULOSE SYRUP 20 GM/30 ML CUP PO SCH (08:52)
[2016-12-15] MEDS: SENNOSIDES SYRUP 8.8 MG/5 ML CUP PO SCH ×2 (08:52→21:00)
[2016-12-15] MEDS: GABAPENTIN 250 MG/5 ML UDC NG SCH ×3 (08:52→17:54)
--- NOTE | 2016-12-15 11:07 | HHI.PR ---
Subjective Subjective Notes PTD: 6 Patient sitting up in bed. No distress noted. Mother states she has been meeting with her employer and players club representative from rehabilitation. Discussed that if rehab is not a possibility, he shall be discharged home with HHC. As PT and OT bother recommend DC home with HHC. Objective Vitals/I&O Vital Signs Date Time Temp Pulse Resp B/P (MAP) Pulse Ox O2 Delivery O2 Flow Rate FiO2 12/15/16 08:50 95.8 78 136/17 (56) 100 12/14/16 23:35 17 Narrative Exam GENERAL: This is a 36-year-old male sitting up in bed No distress. SKIN: Warm and dry. Abrasion to chin and lower lip - slight lower lip swelling. HEAD: Atraumatic. Normocephalic. EYES: PERRLA ENT: No nasal bleeding or discharge. Mucous membranes pink and moist. Jaw wired shut. Wire cutters at bedside. NECK: Trachea midline. No JVD. CARDIOVASCULAR: Regular rate and rhythm. RESPIRATORY: No accessory muscle use. Lungs are clear to auscultation. Breath sounds equal bilaterally. No distress or dyspnea. GASTROINTESTINAL: BS + x 4 quads. Abdomen soft, non-tender, nondistended. MUSCULOSKELETAL: Extremities without cyanosis, or edema. LEFT forearm in splint and wrapped in Lorenzo bandage. + peripheral pulses x 4 extremities. Warm with good capillary refill and sensation. MAEW. NEUROLOGICAL: Awake and alert. Normal speech and pattern. A/P Problem List: (1) Facial fracture due to fall ICD Codes: S02.92XA - Unspecified fracture of facial bones, initial encounter for closed fracture; W19.XXXA - Unspecified fall, initial encounter Status: Acute (2) Fracture of left radius and ulna ICD Codes: S52.92XA - Unspecified fracture of left forearm, initial encounter for closed fracture; S52.202A - Unspecified fracture of shaft of left ulna, initial encounter for closed fracture Status: Acute (3) Pelvic fracture ICD Codes: S32.9XXA - Fracture of unspecified parts of lumbosacral spine and pelvis, initial encounter for closed fracture Status: Acute (4) Right rib fracture ICD Codes: S22.31XA - Fracture of one rib, right side, initial encounter for closed fracture Status: Acute (5) Fall from roof ICD Codes: W13.2XXA - Fall from, out of or through roof, initial encounter Status: Acute Assessment and Plan [place]: This is a 36-year-old male who sustained a fall. He fell off a roof approximately 20-30 feet landing on his left side. No LOC. INJURIES: Concussion Chin lac (sutures) Lower lip through and through (sutures) RIGHT mandibular fx LEFT maxillary sinus and maxilla fx RIGHT rib fxs (1,9) RIGHT lung contusion LEFT radial/ulna fx LEFT sacral ala fx (non-op) LEFT superior and inferior pubic rami fxs (non-op) LEFT acetabulum fx (non-op) LEFT pelvic sidewall and presacral hematoma PMHx: Chronic neck and back pain, PTSD Procedures: 12/09: ORIF left distal radius intra-articular fracture 12/09: Closed reduction right condyle fracture and stabilization of tooth #10 along with the alveolus. Consults: Orthopedics. OMFS. Case management. Diet: Regular FULL LIQUID diet. Tolerating po diet. Ensure TID. Encourage good po intake with each meal. Pulmonary: Encourage good pulmonary toileting. IS at bedside and pt encouraged to use. Rationale for use explained to patient, and verbalized understanding. PAIN Management: Roxicodone liquid 5-10 mg every 4 hours. Dilaudid 1 mg every 4 hours for breakthrough pain. IV Robaxin 1000 mg every 8 hours . Increased Neurontin to 500 mg TID. Sleep: Benadryl liquid 25 mg HS PRN. Trazadone 50 mg HS Activity: OOB. PT and OT ordered. (NWB R wrist; WBAT BLE) GI prophylaxis: Protonix IV. Bowel regimen: Senna liquid BID. Lactulose. LBM: 12/14. DVT prophylaxis: Mechanical VTE with SCDs. Chemical management with Lovenox 30 BID SQ. DC Planning: Case management consulted for assistance with final discharge disposition. PT and OT have recommended DC home with home bryce care. Mother states that the patient cannot go back to his house, and mother states she cannot care for him at her house. Possibility of [facility] rehab per suggestion of his city administrator. Mother states that she has a meeting with her city administrator on today to arrange rehab at [facility]. Mother has been in contact with "Bianca" at [facility]. Case management has been in contact with them as a possible option for discharge planning. Discussed with mother at length that if [facility] rehab does not become a possibility after tomorrow's meeting, she must assist in helping find a final place for pt to convalesce after his injuries. Patient is stable to be discharged home from a trauma surgery standpoint. PEÑA Chan has assisted greatly in helping to make arrangements for patient to discharge home tomorrow with his cousin [place]. Case management will be providing a platform walker. Emotional support provided to patient at bedside and plan of care discussed. Discussed with RN at bedside. Patient is hemodynamically stable and being managed on the med/surg floor. Patient is cleared to discharge home with home health care from a trauma surgery standpoint. Concussion Supportive care Serial neuro checks Close monitoring Chin lac (sutures) Lower lip through and through (sutures) Wash gently with soap and water. Pat dry Suture removal in 5-7 days Monitor closely RIGHT mandibular fx LEFT maxillary sinus and maxilla fx OMFS consulted and assisting in management and care 12/09: Closed reduction right condyle fracture and stabilization of tooth #10 along with the alveolus. Full liquid diet - Ensure TID Wire cutters at bedside Good oral care Clear for DC from OMFS standpoint with follow-up in one week RIGHT rib fxs (1,9) RIGHT lung contusion Supportive care Pain management Good pulmonary toileting IS, CDB Follow-up chest x-ray stable LEFT radial/ulna fx LEFT sacral ala fx (non-op) LEFT superior and inferior pubic rami fxs (non-op) LEFT acetabulum fx (non-op) LEFT pelvic sidewall and presacral hematoma Orthopedics consulted and assisting in management and care 12/09: ORIF left distal radius intra-articular fracture Pelvic fractures nonoperable at this time Pain management - Roxicodone, Dilaudid, Neurontin, Robaxin. NWB R wrist WBAT BLE PT and OT ordered Encourage out of bed Monitor H&H Follow-up labs as needed. Will need rehabilitation placement Insomnia PTSD Patient states he had a nightmare He is having difficulty sleeping Benadryl 25 mg HS. Trazodone 50 mg HS Problem Qualifiers (1) Facial fracture due to fall: Qualified Codes: S02.92XA - Unspecified fracture of facial bones, initial encounter for closed fracture; W19.XXXA - Unspecified fall, initial encounter (2) Fracture of left radius and ulna: Qualified Codes: S52.92XA - Unspecified fracture of left forearm, initial encounter for closed fracture; S52.202A - Unspecified fracture of shaft of left ulna, initial encounter for closed fracture (3) Pelvic fracture: (4) Right rib fracture: Qualified Codes: S22.41XA - Multiple fractures of ribs, right side, initial encounter for closed fracture (5) Fall from roof: Qualified Codes: W13.2XXA - Fall from, out of or through roof, initial encounter Zara Garcia Dec 15, 2016 11:07
[2016-12-15] MEDS: ENOXAPARIN SODIUM 30 MG/0.3 ML SYRINGE SQ SCH ×2 (11:09→22:09)
--- NOTE | 2016-12-15 11:52 | HHI.PR ---
Neuropsych Emotional Emotional: Intact: Emotional, Anxious/Fearful, Depressed/Sad, Hostile/Resentful , Irritable/Angry/Frustrate, Labile, Constricted/Blunted Behavior Behavior: Intact: Behavior, Coping/Acceptance, Cooperative w/ Treatment, Motivation, Frustration Tolerance/[place], Impulsive/Agitated, Suicidal/Homicidal Risk Cognitive Cognitive: Intact: Cognitive, Attention/Concentration, Confused/Orientation, Insight/Awareness, Judgement/Problem-Solving, Memory Psychosocial Psychosocial: Severe: Psychosocial, Family/Other Adjustment, Realistic Expectation, Unable to Asses: Self-Esteem/Confidence Progress Notes/Response to Tx Contents of Sessions: Adjustment Time with Patient: 15 minutes Premorbid psychological status Premorbid Cognitive, Emotional and Behavioral Status: Unstable. The patient lives with two roommates and has a sporadic work history prior to this injury. The patient's past psychiatric difficulties are unknown. Behavioral Reactions of Patient and Family/Support System: Unstable. The patients family is experiencing ongoing issues of adjustment given the nature of the injury, and this aspect of recovery will require ongoing monitoring. His mother reported that she cannot care for him, and at the same time refuses to allow the patient to return to his prior living situation. Emotional/Behavioral Status of Patient and Family/Support System: Deferred. Pertinent issues, if appropriate to this patients clinical care, are described in detail above. Maximizing acute care outcome This patient is stable from a neurobehavioral standpoint. The more pressing issues are psychosocial. Anticipated Problems From a neurobehavioral standpoint, there are no anticipated problems as he is considered at baseline. Treatment Plan This clinician will continue to follow with you throughout the course of this patients rehabilitation treatment, and I will be available to meet with the patients family/support system to facilitate their understanding and the ongoing care of their family member. The goals of neuropsychological intervention shall be both educational and supportive to the family/support system as is deemed clinically appropriate. Impression 36 year old male s/p fall from roof with traumatic injuries. From a neurocognitive standpoint, he is at baseline. Diagnosis: (1) Acute stress disorder Progress Note Narrative Ongoing follow-up of patient seen beside during daily trauma rounds. This patient is cleared for discharge from a trauma team perspective. Barriers to discharge are believed to be social, not medical. I will continue to follow until discharged. Julian Orozco PhD Dec 15, 2016 11:52 am
[2016-12-15 12:00] VITALS: BP 130/71; PULSE 77; RESP 16; TEMP 96.7; O2SAT 100
--- NOTE | 2016-12-15 12:18 | HHI.FF ---
Face to Face Verification Diagnosis: (1) Pelvic fracture (2) Facial fracture due to fall (3) Right rib fracture (4) Fall from roof (5) Fracture of left radius and ulna Physical Therapy Order: Evaluate and Treat, Improve ambulation, Strength and gait training Occupational Therapy Order: Evaluate and Treat, Gross motor coordination, Fine motor coordination Home Health Nursing Order: Medical education Signs/symptoms of disease process Medication education-adverse effect Nursing assessment with vital signs I have seen patient [place] on 12/15/16. My clinical findings support the need for the requested home health care services because: Ltd mobility - disease progression Deconditioned w/ increased weakness Limited ability to care for self High risk of falls I certify that my clinical findings support that this patient is homebound because: Post-op weakness Unsteady gait/balance Unsafe to leave home unassisted Unable to use public transportation Zara Garcia Dec 15, 2016 12:18
[2016-12-15] MEDS ORDERED: GABA250S NG (12:24)
[2016-12-15 21:00] VITALS: BP 116/69; PULSE 89; RESP 18; TEMP 98.2; O2SAT 99
[2016-12-15] MEDS: traZODone HCL 50 MG TAB PO SCH (22:09)
[2016-12-16] MEDS: oxyCODONE HCL ORAL CONC 20 MG/ML SYRINGE PO PRN ×4 (02:07→16:01)
--- NOTE | 2016-12-16 06:47 | PD.ORT.PN ---
Subjective Subjective Remarks Pain controlled. No new complaints Objective Vitals Vital Signs Date Time Temp Pulse Resp B/P (MAP) Pulse Ox O2 Delivery O2 Flow Rate FiO2 12/15/16 21:00 98.2 89 18 116/69 (85) 99 12/15/16 19:07 Room Air 12/15/16 12:00 96.7 77 16 130/71 (90) 100 12/15/16 08:50 95.8 78 136/17 (56) 100 I/O 12/15/16 12/15/16 12/15/16 12/16/16 12/16/16 12/16/16 07:00 15:00 23:00 07:00 15:00 23:00 Intake Total 730 ml 1240 ml 480 ml Balance 730 ml 1240 ml 480 ml Intake Oral 480 ml 720 ml 480 ml IV Total 250 ml 520 ml # Voids 2 4 2 # Bowel Movements 0 0 0 Result Diagram: 12/12/16 0734 12/12/16 0734 Imaging Last 24 hours Impressions Wrist X-Ray 12/09/1646 Signed Impressions: Service Date/Time: Friday, December 09, 2016 00:43 - CONCLUSION: 1. Casting of left wrist with slight improvement in fracture alignment. Nestor Pierce MD Wrist X-Ray 12/08/162103 Signed Impressions: Service Date/Time: Thursday, December 08, 2016 22:55 - CONCLUSION: 1. Comminuted intra-articular fracture distal radius and left ulna styloid fracture with mild displacement. No dislocation. Nestor Pierce MD Thoracic Spine CT 12/08/162103 Signed Impressions: Service Date/Time: Thursday, December 08, 2016 23:24 - CONCLUSION: 1. No acute thoracic spine fracture. Incidental fracture of medial right first rib and probably medial right ninth rib. Exam degraded by some motion artifact. Nestor Pierce MD Maxillofacial CT 12/08/162103 Signed Impressions: Service Date/Time: Thursday, December 08, 2016 23:16 - CONCLUSION: 1. Displaced fracture through the right mandibular head and neck. 2. Nondisplaced fractures of the left maxillary sinus and anterior process of the maxilla. Nestor Pierce MD Lumbar Spine CT 12/08/162103 Signed Impressions: Service Date/Time: Thursday, December 08, 2016 23:24 - CONCLUSION: 1. No acute lumbar spine fracture. Left sacral ala fracture with mild displacement. Nestor Pierce MD Knee X-Ray 12/08/162103 Signed Impressions: Service Date/Time: Thursday, December 08, 2016 22:49 - CONCLUSION: No acute disease. Nestor Pierce MD Hip and Pelvis X-Ray 12/08/162103 Signed Impressions: Service Date/Time: Thursday, December 08, 2016 22:49 - CONCLUSION: 1. Fracture left superior pubic ramus and left pubic bone, relatively nondisplaced. Left hip appears intact. CT pending. Nestor Pierce MD Head CT 12/08/162103 Signed Impressions: Service Date/Time: Thursday, December 08, 2016 23:12 - CONCLUSION: 1. No acute intracranial abnormalities. Fracture of the right mandibular head and neck and left maxillary sinus. Nestor Pierce MD Hand X-Ray 12/08/162103 Signed Impressions: Service Date/Time: Thursday, December 08, 2016 22:56 - CONCLUSION: 1. Fracture of the left wrist. No left hand fracture identified. Nestor Pierce MD Chest X-Ray 12/08/162103 Signed Impressions: Service Date/Time: Thursday, December 08, 2016 22:53 - CONCLUSION: Normal examination. Nestor Pierce MD Chest CT 12/08/162103 Signed Impressions: Service Date/Time: Thursday, December 08, 2016 23:24 - CONCLUSION: 1. Nondisplaced fractures right first rib and ninth rib medially. No pneumothorax or effusion. Small right lung contusion. Nestor Pierce MD Cervical Spine CT 12/08/162103 Signed Impressions: Service Date/Time: Thursday, December 08, 2016 23:15 - CONCLUSION: 1. No acute cervical spine fracture. Nondisplaced right first rib fracture. Nestor Pierce MD Abdomen/Pelvis CT 12/08/162103 Signed Impressions: Service Date/Time: Thursday, December 08, 2016 23:24 - CONCLUSION: 1. There are nondisplaced fractures of the left pubic bone, superior and inferior pubic rami , anterior column left acetabulum and left sacral ala. Small left pelvic sidewall and presacral hematoma. 2. No solid visceral injury identified. Nestor Pierce MD Objective Remarks LUE: +sugar tong splint. intact. NVI. BLE: good motion of legs with minimal discomfort. nvi bilaterally Pain to palpation over left rami and sacrum Assessment & Plan Assessment and Plan 1) Left severely comminuted distal radius fracture s/p ORIF - POD 7 Maintain splint NWB ok to use platform walker with weight on elbow 2) Left inferior/superior pubic rami fractures and nondisplaced fracture of left sacrum Weightbearing as tolerated bilateral lower extremities -ortho cleared for discharge home -f/u with [facility] or [facility] in 2 weeks Meir Beasley Jr. Dec 16, 2016 06:47
[2016-12-16 08:00] VITALS: BP 116/61; PULSE 65; RESP 16; TEMP 96.1; O2SAT 96
[2016-12-16] MEDS: LACTULOSE SYRUP 20 GM/30 ML CUP PO SCH (09:00)
[2016-12-16] MEDS: SENNOSIDES SYRUP 8.8 MG/5 ML CUP PO SCH (09:00)
[2016-12-16] MEDS: GABAPENTIN 250 MG/5 ML UDC NG SCH ×2 (10:46→16:01)
[2016-12-16] MEDS: ENOXAPARIN SODIUM 30 MG/0.3 ML SYRINGE SQ SCH (10:46)
[2016-12-16] MEDS: PANTOPRAZOLE SODIUM 40 MG VIAL IVP SCH (10:47)
--- NOTE | 2016-12-16 13:49 | HHI.DS ---
Discharge Summary Admission Date Dec 08, 2016 at 23:50 Discharge Date: Dec 16, 2016 Admitting Diagnosis FALL FROM ROOF, LEFT WRIST FX, LEFT ACETABULAR FX (1) Facial fracture due to fall ICD Codes: S02.92XA - Unspecified fracture of facial bones, initial encounter for closed fracture; W19.XXXA - Unspecified fall, initial encounter Status: Acute (2) Fracture of left radius and ulna ICD Codes: S52.92XA - Unspecified fracture of left forearm, initial encounter for closed fracture; S52.202A - Unspecified fracture of shaft of left ulna, initial encounter for closed fracture Status: Acute (3) Pelvic fracture ICD Codes: S32.9XXA - Fracture of unspecified parts of lumbosacral spine and pelvis, initial encounter for closed fracture Status: Acute (4) Right rib fracture ICD Codes: S22.31XA - Fracture of one rib, right side, initial encounter for closed fracture Status: Acute (5) Fall from roof ICD Codes: W13.2XXA - Fall from, out of or through roof, initial encounter Status: Acute Brief History S/P Trauma: Fall CBC/BMP: 12/12/16 0734 12/12/16 0734 Imaging Last Impressions Chest X-Ray 12/11/16 0000 Signed Impressions: Service Date/Time: November 11:48 - CONCLUSION: No acute disease. Pedro Marsh MD Wrist X-Ray 12/09/16 0047 Signed Impressions: Service Date/Time: Friday, December 09, 2016 00:43 - CONCLUSION: 1. Casting of left wrist with slight improvement in fracture alignment. Nestor Pierce MD Thoracic Spine CT 12/08/162103 Signed Impressions: Service Date/Time: Thursday, December 08, 2016 23:24 - CONCLUSION: 1. No acute thoracic spine fracture. Incidental fracture of medial right first rib and probably medial right ninth rib. Exam degraded by some motion artifact. Nestor Pierce MD Maxillofacial CT 12/08/162103 Signed Impressions: Service Date/Time: Thursday, December 08, 2016 23:16 - CONCLUSION: 1. Displaced fracture through the right mandibular head and neck. 2. Nondisplaced fractures of the left maxillary sinus and anterior process of the maxilla. Nestor Pierce MD Lumbar Spine CT 12/08/162103 Signed Impressions: Service Date/Time: Thursday, December 08, 2016 23:24 - CONCLUSION: 1. No acute lumbar spine fracture. Left sacral ala fracture with mild displacement. Nestor Pierce MD Knee X-Ray 12/08/162103 Signed Impressions: Service Date/Time: Thursday, December 08, 2016 22:49 - CONCLUSION: No acute disease. Nestor Pierce MD Hip and Pelvis X-Ray 12/08/162103 Signed Impressions: Service Date/Time: Thursday, December 08, 2016 22:49 - CONCLUSION: 1. Fracture left superior pubic ramus and left pubic bone, relatively nondisplaced. Left hip appears intact. CT pending. Nestor Pierce MD Head CT 12/08/162103 Signed Impressions: Service Date/Time: Thursday, December 08, 2016 23:12 - CONCLUSION: 1. No acute intracranial abnormalities. Fracture of the right mandibular head and neck and left maxillary sinus. Nestor Pierce MD Hand X-Ray 12/08/162103 Signed Impressions: Service Date/Time: Thursday, December 08, 2016 22:56 - CONCLUSION: 1. Fracture of the left wrist. No left hand fracture identified. Nestor Pierce MD Chest CT 12/08/162103 Signed Impressions: Service Date/Time: Thursday, December 08, 2016 23:24 - CONCLUSION: 1. Nondisplaced fractures right first rib and ninth rib medially. No pneumothorax or effusion. Small right lung contusion. eNstor Pierce MD Cervical Spine CT 12/08/162103 Signed Impressions: Service Date/Time: Thursday, December 08, 2016 23:15 - CONCLUSION: 1. No acute cervical spine fracture. Nondisplaced right first rib fracture. Nestor Pierce MD Abdomen/Pelvis CT 12/08/162103 Signed Impressions: Service Date/Time: Thursday, December 08, 2016 23:24 - CONCLUSION: 1. There are nondisplaced fractures of the left pubic bone, superior and inferior pubic rami , anterior column left acetabulum and left sacral ala. Small left pelvic sidewall and presacral hematoma. 2. No solid visceral injury identified. Nestor Pierce MD PE at Discharge GENERAL: 36-year-old well-nourished, well-developed male sitting at the side of the bed. SKIN: Warm and dry. Abrasion to chin and lower lip - slight lower lip swelling. HEAD: Normocephalic. ENT: No nasal bleeding or discharge. Mucous membranes pink and moist. NECK: Trachea midline. No JVD. CARDIOVASCULAR: Regular rate and rhythm. RESPIRATORY: No accessory muscle use. Lungs are clear to auscultation. Breath sounds equal bilaterally. No distress or dyspnea. GASTROINTESTINAL: BS + x 4 quads. Abdomen soft, non-tender, nondistended. MUSCULOSKELETAL: Extremities without cyanosis, or edema. LEFT forearm in splint and wrapped in Lorenzo bandage. MAEW. NEUROLOGICAL: Awake and alert. Normal speech and pattern- Jaw wired. Hospital Course [place]:Fell off a roof approx 20-30ft landing on his left side. No LOC. INJURIES: LEFT radial/ulna fx RIGHT rib fxs (1, 9) RIGHT mandibular fx LEFT maxillary sinus and maxilla fx LEFT sacral ala fx (non-op) LEFT superior and inferior pubic rami fxs (non-op) LEFT acetabulum fx (non-op) LEFT pelvic sidewall and presacral hematoma RIGHT lung contusion Chin lac (sutures) Lower lip through and through (sutures) Concussion PMHx: Chronic neck and back pain, PTSD Diet: Full liquids- Ensure with each meal Pulm: IS Pain: Roxicodone elixir, Dilaudid, Neurontin. Pain controlled Activity: OOB. PT and OT ordered (WBAT BLE) GI: IV Protonix Bowel: Senna liquid BID, PRN Lactulose. LBM 10/ DVT: SCDs, Lovenox 30 BID LEFT radial/ulna fx Orthopedics consulted 12/09: ORIF left distal radius intra-articular fracture Pain control OT consulted NWB LEFT wrist Orthopedics cleared for discharge F/U as outpatient RIGHT rib fxs, RIGHT lung contusion Supportive care Pain control Pulmonary toileting OOB- PT ordered Lovenox RIGHT mandibular fx, LEFT maxillary sinus and maxilla fx OMFS consulted 12/09: Closed reduction right condyle fracture and stabilization of tooth #10 along with the alveolus Pain control [place]onia PO Ensure TID Oral care Wire cutters at bedside F/U as outpatient LEFT sacral ala fx, LEFT superior and inferior pubic rami fxs, LEFT acetabulum fx Orthopedics consulted Non-operative management WBAT BLE Pain control OOB- PT and OT ordered F/U as outpatient LEFT pelvic sidewall and presacral hematoma Supportive care Pain control H&H stable Chin lac, Lower lip through and through Wash wounds daily with soap and water. Leave open to air. Sutures intact Concussion Supportive care Avoid second head injury Neuropsychologist consulted Post-concussive education F/U with PCP in 1 week. Plan of care discussed with patient at bedside. Patient is clear from trauma surgery standpoint safely discharged home. Pt Condition on Discharge: Stable Discharge Disposition: Disch w/ Home Health Serv Discharge Instructions DIET: Follow Instructions for: Full Liquid Diet Additional Diet Instructions: Full liquid diet - Wire sutters with patient at all times Activities you can perform: Weight Bearing as [place], Non Weight Bearing Activities to Avoid: Concussion Sports, Contact Sports, Lifting/Bending, Weight Bearing, Strenuous Activity, Driving Other Activity Instructions: Non-weight bearing LEFT upper extremity - may bear weight to left elbow Weightbearing as tolerated bilateral lower extremities Leah Pham Dec 16, 2016 13:49
--- NOTE | 2016-12-17 08:22 | PD.NP.DS ---
Discharge Summary Reason for Referral: The patient is a 36 year old right handed male status post traumatic injury sustained after falling off a roof. 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 Head CT was normal. Presently, he is complaining of nightmares related to his fall. He is is referred for baseline neurobehavioral status examination per trauma protocol to assess cognitive, behavioral and emotional aspects of the injury and to provide treatment recommendations. The patient remained hospitalized for 8 days and was discharge home. He was diagnosed with concussion, although his physical injuries took precedence during his acute care stay. Past Medical History: Please refer to the patient's history and physical for information concerning the patient's past medical, surgical, and psychiatric histories. Education/Learning Hx: The patient completed high school education. There is no report of learning difficulties, grade repetitions or behavioral difficulties. The patient has a limited work history, per the patient. The patient is . The patient lives in [place], [place]. Premorbid Cognitive, Emotional and Behavioral Status: Unstable. The patient lives with two roommates and has a sporadic work history prior to this injury. The patient's past psychiatric difficulties are unknown. Behavioral Reactions of Patient and Family/Support System: Unstable. The patients family is experiencing ongoing issues of adjustment given the nature of the injury, and this aspect of recovery will require ongoing monitoring. His mother reported that she cannot care for him, and at the same time refuses to allow the patient to return to his prior living situation. Emotional/Behavioral Status of Patient and Family/Support System: Deferred. Pertinent issues, if appropriate to this patients clinical care, are described in detail above. Treatment Interventions: During the course of their acute care stay, this patient and their family/ support system were provided information concerning the neuropsychological aspects of the injury, education regarding course of recovery, and psychological support in the form of counseling with the person served and the family/support system as documented in the neuropsychology service progress notes, as deemed clinically appropriate. Current, Cognitive, Emotional and Behavioral Status: Tenuous. This patient has experienced severe physical injury, and will be adjusting to significant cognitive, emotional and behavioral challenges going forward. Impression at Discharge: The cognitive and behavioral status of this patient meets criteria for Acute Stress Disorder F43.0 The above listed diagnoses are supported by the following clinical criteria: Acute Stress Disorder. The patient experienced exposure to serious injury through a traumatic event, with report of distressing memories, nightmares, negative mood, and sleep disturbances. Status of Family/Support System Adjustment: Tenuous. The patients family/ support system will experience ongoing issues of adjustment given the nature of the injury, and this aspect of the patients recovery will require ongoing monitoring. Post Acute Recommendations: It is recommended that the patient continue to be monitored for behavioral reactivity as they continue to be early in their course of recovery. This patients psychological challenges may limit their reintegration into work and family life going forward, and these challenges may require specialized therapeutic skills to maximize outcome. Thank you for the opportunity to assist in this patients care. Julian Orozco, Ph.D., ABPP Board Certified in Clinical Neuropsychology [place] [employer] [place] Licensed Psychologist #[id number] Julian Orozco PhD Dec 17, 2016 08:21
--- NOTE | 2016-12-30 14:26 | MH ---
cc: ANTHONYJAI DATE OF ADMISSION: 12/08/2016 HISTORY OF PRESENT ILLNESS: This is a 42-year-old male who presented to the emergency room after fall from roof. The patient was brought in as a non-trauma alert. He was worked up by the emergency room physician and found to have traumatic injuries. The trauma service was requested for admission. The patient on my evaluation complains of tripping while on the roof and landing on his left side. He has complaints of left wrist pain, right knee pain and left back and hip pain. He denied chest pain or shortness of breath. Denied paresthesias. Denied loss of consciousness. PAST MEDICAL HISTORY: Past medical history is significant for chronic back pain. PAST SURGICAL HISTORY Significant for arthroscopy of the knee. MEDICATIONS: He is on no chronic medication. ALLERGIES NO KNOWN DRUG ALLERGIES. SOCIAL HISTORY: He does smoke and drink alcohol occasionally. FAMILY HISTORY Noncontributory. REVIEW OF SYSTEMS Review of systems significant for above. All other 10-point review negative. PHYSICAL EXAMINATION: HEAD, EYES, EARS, NOSE, AND THROAT: On exam the patient is pupils are equal and reactive. He has a laceration on his lower lip approximately 4 cm. NECK: Nontender. CARDIOVASCULAR SYSTEM: Regular. LUNGS: Respirations clear. GASTROINTESTINAL: Soft, nontender. EXTREMITIES: The patient has deformity of the left wrist, pulses are palpable distally. NEUROLOGICAL: Grossly intact. LABORATORY DATA Hemoglobin 13, hematocrit 29. RADIOLOGIC: Radiologic images CT of the patient's head was negative. It does reveal right mandibular head fracture. CT of the maxillofacial bones revealed mandibular head fracture and fracture of the left maxillary sinus. CT of the neck. No acute fractures. CT of the abdomen and pelvis reveals left pubic bone fracture and superior inferior pubic rami fracture, left acetabulum and left sacral ala fracture also a small presacral hematoma. CT of the chest reveals fracture of the right first rib and ninth rib, pneumothorax, no hemothorax, right-sided lung contusion. X-RAYS Left wrist x-ray revealed intra-articular fracture of the distal radius and left arm styloid fracture. ASSESSMENT/PLAN: 1. The patient is being admitted. 2. Orthopedics has been consulted as well as maxillofacial will provide pain management. 3. Monitor the patient's neurological status. MD Maria D Barbour /2:05 PM /2:15 PM
== END 2016-12-16 16:14 | disposition home health service (06) | DRG 958 ==
LOC: NEPC 20:51 → NEDA 23:50 → N06B 12-09 03:47
PROVIDERS: ADMIT Surgery; ATTEND Surgery
PROC: 0WQ2XZZ Repair Face, External Approach (ICD-10-PCS; 2016-12-08)
PROC: 0CQ1XZZ Repair Lower Lip, External Approach (ICD-10-PCS; 2016-12-08)
PROC: 0PSJXZZ Reposition Left Radius, External Approach (ICD-10-PCS; 2016-12-08)
PROC: 0NST35Z Reposition Right Mandible with External Fixation Device, Percutaneous Approach (ICD-10-PCS; 2016-12-09)
PROC: 0PSJ04Z Reposition Left Radius with Internal Fixation Device, Open Approach (ICD-10-PCS; principal; 2016-12-09 16:05)
DX: S52.572A Other intraarticular fracture of lower end of left radius, initial encounter for closed fracture (principal); S32.402A Unspecified fracture of left acetabulum, initial encounter for closed fracture; S22.41XA Multiple fractures of ribs, right side, initial encounter for closed fracture; S27.321A Contusion of lung, unilateral, initial encounter; S32.119A Unspecified Zone I fracture of sacrum, initial encounter for closed fracture; S32.810A Multiple fractures of pelvis with stable disruption of pelvic ring, initial encounter for closed fracture; S02.69XA Fracture of mandible of other specified site, initial encounter for closed fracture; S02.611A Fracture of condylar process of right mandible, initial encounter for closed fracture; S02.42XA Fracture of alveolus of maxilla, initial encounter for closed fracture; S02.40DA Maxillary fracture, left side, initial encounter for closed fracture; W13.2XXA Fall from, out of or through roof, initial encounter; S02.5XXA Fracture of tooth (traumatic), initial encounter for closed fracture; S01.81XA Laceration without foreign body of other part of head, initial encounter; S01.511A Laceration without foreign body of lip, initial encounter; S52.612A Displaced fracture of left ulna styloid process, initial encounter for closed fracture; S30.0XXA Contusion of lower back and pelvis, initial encounter; S06.0X0A Concussion without loss of consciousness, initial encounter; F43.0 Acute stress reaction; F43.10 Post-traumatic stress disorder, unspecified; G89.29 Other chronic pain; M54.2 Cervicalgia; M54.5 Low back pain; G47.00 Insomnia, unspecified; F17.220 Nicotine dependence, chewing tobacco, uncomplicated
CPT/HCPCS: 12013; 12052; 25605; 70450; 70486; 71010; 71260; 72125; 72128; 72131; 73100; 73120; 73502; 73564; 74177; 76000; 80048; 80053; 80307; 82435; 82565; 82947; 84132; 84295; 84520; 85025; 85027; 85384; 85610; 85730; 86850; 86900; 86901; 86920; 90471; 90715; 94150; 96365; 96375; 99151; C1713; C9113; J0131; J0690; J1100; J1170; J1650; J2175; J2250; J2270; J2405; J2710; J2800; J3010; J3370; J7030; J7040; J7050; L0150; Q9967

== ENCOUNTER 2017-02-25 07:36 | Emergency (ER) | payer OTHER ==
[~2017-02-25] VITALS: Ht 180.3 cm; Wt 90.0 kg
[~2017-02-25 07:36] MED LIST changes: -AUGM875T PO; +GABA250S NG; -HYDR-3533 PO; +HYDR-3580 PO; -IBUP800T23 PO; +SENN8.8L PO; -SILV1CRE80 TOPICAL; +WALKER WHEELS/F1 MIS
[2017-02-25 07:39] VITALS: BP 148/84; PULSE 79; RESP 16; TEMP 98.4; O2SAT 100
[2017-02-25] MEDS ORDERED: GABA800T PO (07:47)
--- NOTE | 2017-02-25 08:05 | PD ---
HPI Chief Complaint: Fall Time Seen by Provider: 07:55 Travel History International Travel<30 days: No Contact w/Intl Traveler<30days: No Traveled to known affect area: No History of Present Illness HPI 36-year-old male presents emergency Department with complaint of left hip pain, left wrist and hand pain after slipping on a wet deck and falling this morning. Denies hitting his head or loss of consciousness. Denies neck pain or back pain. Denies paresthesias, loss of vision, decreased range of motion, decreased strength to all extremities. Has been ambulatory on the affected extremity since after the fall. No chest pain, shortness breath, abdominal pain , vomiting. Denies other extremity pain. Rates pain 10/10. Has taken ibuprofen this morning for symptom management. Has not tried any other treatments. Describes pain as a throbbing sensation. No known allergies. Denies significant past medical history. Reports having left wrist surgery a couple months ago after another fall. Has no medical complaints. No other modifying factors or associated signs and symptoms. PFSH Past Medical History Cancer: No Cardiovascular Problems: No Diminished Hearing: No GERD: Yes Genitourinary: No Musculoskeletal: Yes (chronic neck and back pain) Neurologic: Yes Psychiatric: Yes (PTSD) Respiratory: No Seizures: Yes Social History Alcohol Use: No (OCC.) Tobacco Use: Yes (chewing tobacco occasionally) Substance Use: No Allergies-Medications (Allergen,Severity, Reaction): Coded Allergies: No Known Allergies (Unverified Adverse Reaction, Unknown, 02/25/17) Reported Meds & Prescriptions Reported Meds & Active Scripts Active Ibuprofen 800 Mg Tab 800 Mg PO Q6HR PRN [place] (Hydrocodone-Acetaminophen) 5 Mg-325 Mg Tab 1 Tab PO Q4H PRN Reported Gabapentin 800 Mg Tab 900 Mg PO TID Review of Systems Except as stated in HPI: all other systems reviewed are Neg Physical Exam Narrative GENERAL: Well-nourished, well-developed male patient, in no acute distress; afebrile, nontoxic-appearing SKIN: Warm and dry. HEAD: Atraumatic. Normocephalic. EYES: Pupils equal and round. No scleral icterus. No injection or drainage. ENT: Mucosa pink and moist. Airway patent. NECK: Trachea midline. CARDIOVASCULAR: Regular rate and rhythm. No murmur appreciated. RESPIRATORY: No accessory muscle use. Lungs sounds clear and equal bilaterally. GASTROINTESTINAL: Flat. MUSCULOSKELETAL: Left hip with full range of motion; without erythema, edema, or ecchymosis; with tenderness on abduction; tenderness on palpation to the lateral aspect; no obvious deformity; no leg length discrepancy. Left lower extremity is supple and non-tense with 2+ pedal pulse and sensory intact and without erythema or edema. Left wrist and hand with tenderness on palpation; without erythema, edema, ecchymosis; no obvious deformity; all fingers with full range of motion and decreased supervisor sawing and assembly strength. Left upper extremities supple and non-tense with 2+ radial pulse and sensory intact and without erythema or edema. NEUROLOGICAL: Awake and alert. Oriented 3. No obvious cranial nerve deficits. Motor grossly within normal limits. Normal speech. PSYCHIATRIC: Appropriate mood and affect; insight and judgment normal. Data Data Last Documented VS Vital Signs Date Time Temp Pulse Resp B/P (MAP) Pulse Ox O2 Delivery O2 Flow Rate FiO2 02/25/17 12:28 02/25/17 07:39 98.4 79 16 100 Orders Orders Hip, Uni(Ap&Lat) W Ap Pelvis (02/25/17 07:53) Hand, Complete ([id number]) (02/25/17 07:53) Wrist, Complete ([id number]) (02/25/17 07:53) Iv Access Insert/Monitor (02/25/17 09:30) Sodium Chlor 0.9% 1000 Ml Inj (Ns 1000 M (02/25/17 09:30) Sodium Chloride 0.9% Flush (Ns Flush) (02/25/17 09:30) Ct Pelvis W/O Iv Contrast (02/25/17 ) Acetamin-Hydrocod 325-5 Mg ([place] 5-325 (02/25/17 11:45) Crutches (02/25/17 12:11) Ed Discharge Order (02/25/17 12:11) MDM Medical Decision Making Medical Screen Exam Complete: Yes Emergency Medical Condition: Yes Medical Record Reviewed: Yes Differential Diagnosis Fall, hip contusion, sprain, fracture, injury Narrative Course 36-year-old male with left wrist, left hand, left hip injury after mechanical fall this morning. Denies hitting his head or loss of consciousness. Denies neck pain or back pain. Patient took ibuprofen prior to arrival. Left hip with AP pelvis, left hand, left wrist x-ray ordered. Reviewed the patient's medical record and the patient was seen here in December 08 as a trauma alert and had left hip fracture at that time. 0929: Left hip with AP pelvis x-ray concludes: Possible hairline fractures involving the left hemipelvis along the roof of acetabulum and in the inferior pubic ramus. 2. Further evaluation with CT should be considered. CT pelvis ordered. IV, NS bolus ordered. Left hand and wrist x-rays concludes: Wrist X-Ray 02/25/17 075 Signed Impressions: Service Date/Time: Saturday, February 25, 2017 08:24 - CONCLUSION: 1. Mild radiocarpal arthropathy 2. Status post ORIF distal left radius. 3. Old ununited fracture of the ulnar styloid. 4. No acute process. Samuel Dalal MD Hip and Pelvis X-Ray 02/25/17 075 Signed Impressions: Service Date/Time: Saturday, February 25, 2017 08:28 - CONCLUSION: 1. Possible hairline fractures involving the left hemipelvis along the roof of acetabulum and in the inferior pubic ramus. 2. Further evaluation with CT should be considered. Samuel Dalal MD Hand X-Ray 02/25/17 0753 Signed Impressions: Service Date/Time: Saturday, February 25, 2017 08:22 - CONCLUSION: No evidence of acute bony abnormality or significant soft tissue swelling. Samuel Dalal MD Pelvis CT 02/25/17 0000 Signed Impressions: Service Date/Time: Saturday, February 25, 2017 09:58 - CONCLUSION: 1. Multiple healing pelvic fractures, as above. There is slight increased angulation with lucency extending through periosteal reaction of the left inferior pubic ramus and lucency extending through the periosteal reaction of the anterior left acetabulum which may reflect acute refracture. Otherwise, no evidence for additional new acute bony fractures. Tae Teague MD 1208: I spoke with Dr. Davis, orthopedic surgeon he recommends crutches and outpatient follow-up; says the fracture appears stable and is healing. [place] and ibuprofen prescribed for home. Crutches provided for support. Instructed patient to follow up with the patient's surgeon. Instructed patient to follow up with primary care provider. Patient verbalizes understanding and agreement with treatment plan. Patient is medically cleared and stable for discharge. Discussed reasons to return to the emergency department. Patient agrees with treatment plan. The patients vital signs are stable and the patient is stable for outpatient follow-up and treatment. Patient discharged home, stable and in no acute distress. Diagnosis Primary Impression: Closed fracture of left hip with routine healing Additional Impression: Left wrist injury Qualified Codes: S69.92XA - Unspecified injury of left wrist, hand and finger( s), initial encounter Referrals: Orthopaedic Surgeon Primary Care Physician Patient Instructions: Crutch Instructions (ED), General Instructions, Hip Fracture (ED), Wrist Sprain (ED) Additional Instructions: Tylenol or ibuprofen as directed and as needed for pain and inflammation Rest, ice, compress, and elevate extremity to decrease pain and inflammation Crutches for support Avoid aggravating activity; increase activity as tolerated Follow-up with primary care provider Follow up with orthopedic surgeon Return to the emergency department immediately with worsening of symptoms Med/Other Pt SpecificInfo: Prescription(s) given Scripts Ibuprofen (Ibuprofen) 800 Mg Tab 800 MG PO Q6HR Y for PAIN, #30 TAB 0 Refills Prov: Samantha Jeong 02/25/17 Hydrocodone-Acetaminophen ([place]) 5 Mg-325 Mg Tab 1 TAB PO Q4H Y for PAIN, #12 TAB 0 Refills Prov: Samantha Jeong 02/25/17 Disposition: 01 DISCHARGE HOME Condition: Stable Samantha Jeong Feb 25, 2017 08:05
--- NOTE | 2017-02-25 09:18 | RADRPT ---
EXAM DATE/TIME: 02/25/2017 08:22 [facility] COMPARISON: No previous studies available for comparison. INDICATIONS : Left hand pain due to fall. MEDICAL HISTORY : None. SURGICAL HISTORY : Orif left wrist and jaw. ENCOUNTER: Initial ACUITY: 1 day PAIN SCORE: 6/10 LOCATION: Left Hand. FINDINGS: Three view examination of the left hand demonstrates no soft tissue swelling, dislocation, or fractur e. The carpal bones appear intact. The interphalangeal and metacarpophalangeal joints are intact. Bony mineralization is normal. Extra medullary plate is identified in the distal left radius. There is an old ununited fracture of t he ulnar styloid. CONCLUSION: No evidence of acute bony abnormality or significant soft tissue swelling. Samuel Dalal MD on February 25, 2017 at 9:14 Board Certified Radiologist. This report was verified electronically.
--- NOTE | 2017-02-25 09:21 | RADRPT ---
EXAM DATE/TIME: 02/25/2017 08:24 [facility] COMPARISON: No previous studies available for comparison. INDICATIONS : Left wrist pain due to fall. MEDICAL HISTORY : None. SURGICAL HISTORY : Orif left wrist and jaw. ENCOUNTER: Initial ACUITY: 1 day PAIN SCORE: 6/10 LOCATION: Left Wrist. FINDINGS: An extra medullary plate is identified in the distal left radius from prior ORIF. Underlying arthropa thy is seen in the radiocarpal joint. There is joint space narrowing and mild irregularity along the articulating surface of the radius. An old ununited fracture of the ulnar styloid is noted. Carpal bones are intact and in satisfactory alignment. CONCLUSION: 1. Mild radiocarpal arthropathy 2. Status post ORIF distal left radius. 3. Old ununited fracture of the ulnar styloid. 4. No acute process. Samuel Dalal MD on February 25, 2017 at 9:17 Board Certified Radiologist. This report was verified electronically.
--- NOTE | 2017-02-25 09:24 | RADRPT ---
EXAM DATE/TIME: 02/25/2017 08:28 [facility] COMPARISON: HIP LEFT (AP&LAT 2/3VWS) W AP PELVIS, December 08, 2016, 22:49. INDICATIONS : Left hip and pelvis pain due to fall. MEDICAL HISTORY : None. SURGICAL HISTORY : Orif left wrist and jaw. ENCOUNTER: Initial ACUITY: 1 day PAIN SCORE: 6/10 LOCATION: Left Hip and pelvis. FINDINGS: Examination of the left hip was performed with AP Pelvis. Focal cortical deformity is evident along t he roof of the acetabulum which thirds and a hairline fracture. The inferior ramus constraints a menard sverse sclerotic density which may represent a nondisplaced fracture. Left hip the bony pelvis are otherwise intact. CONCLUSION: 1. Possible hairline fractures involving the left hemipelvis along the roof of acetabulum and in the inferior pubic ramus. 2. Further evaluation with CT should be considered. Samuel Dalal MD on February 25, 2017 at 9:19 Board Certified Radiologist. This report was verified electronically.
[2017-02-25] MEDS ORDERED: SODIUM CHLORIDE 0.9% FLUSH 10 ML FLUSH IV FLUSH PRN (09:30)
[2017-02-25] MEDS: SODIUM CHLOR 0.9% 1000 ML INJ 1,000 ML IV SCH ×2 (09:43→12:00)
--- NOTE | 2017-02-25 10:36 | RADRPT ---
EXAM DATE/TIME: 02/25/2017 09:58 [facility] COMPARISON: CT ABDOMEN & PELVIS W CONTRAST, December 08, 2016, 23:24. INDICATIONS : Patient fell yesterday, complains of left hip pain ORAL CONTRAST: No oral contrast ingested. RADIATION DOSE: 11.81 CTDIvol (mGy) MEDICAL HISTORY : Seizures. SURGICAL HISTORY : None. ENCOUNTER: Initial ACUITY: 1 day PAIN SCALE: 5/10 LOCATION: Left hip TECHNIQUE: Volumetric scanning of the pelvis was performed. Using automated exposure control and adjustment of the mA and/or kV according to patient size, radiation dose was kept as low as reasonab ly achievable to obtain optimal diagnostic quality images. DICOM format image data is available shelia ctronically for review and comparison. FINDINGS: BOWEL/MESENTERY: The visualized small and large bowel demonstrate no acute abnormality. Mild sigm oid diverticulosis without significant inflammatory change. There is no free fluid. BLADDER: There is no wall thickening or mass. RETROPERITONEUM: There is no aneurysm or lymphadenopathy. REPRODUCTIVE: Within normal limits. INGUINAL: There is no lymphadenopathy or hernia. MUSCULOSKELETAL: There are healing nondisplaced fractures of the left pubic bone, superior and in ferior pubic rami, anterior left acetabular column and left sacral ala. The left inferior pubic ramus fracture is slightly more angulated with lucency extending through the periosteal reaction. There is also lucency extending through the periosteal reaction of the anterior left acetabulum. Remaining os seous structures are intact without additional acute fractures. CONCLUSION: 1. Multiple healing pelvic fractures, as above. There is slight increased angulation with lucency ext ending through periosteal reaction of the left inferior pubic ramus and lucency extending through the periosteal reaction of the anterior left acetabulum which may reflect acute refracture. Otherwise, n o evidence for additional new acute bony fractures. Tae Teague MD on February 25, 2017 at 10:22 Board Certified Radiologist. This report was verified electronically.
[2017-02-25] MEDS ORDERED: ACETAMINOPHEN/HYDROcodone 325 MG/5 MG TAB PO ONE (11:45)
[2017-02-25] MEDS ORDERED: NORC5TAB PO (12:10)
[2017-02-25] MEDS ORDERED: IBUP1TAB7 PO (12:10)
== END 2017-02-25 12:29 | disposition home or self-care (01) ==
LOC: NEPD 07:36
DX: S72.002A Fracture of unspecified part of neck of left femur, initial encounter for closed fracture (principal); S69.92XA Unspecified injury of left wrist, hand and finger(s), initial encounter; K21.9 Gastro-esophageal reflux disease without esophagitis; Z72.0 Tobacco use
CPT/HCPCS: 72192; 73110; 73130; 73502; 99285; E0113; J7030